=== PATIENT | female | born 1965 | race Caucasian/White ===

== ENCOUNTER 2019-12-20 10:48 | Outpatient (CLI) | payer SELFPAY ==
--- NOTE | 2019-12-20 10:53 | MM_ITS ---
WS: [id number] BILATERAL DIGITAL SCREENING MAMMOGRAM WITH CAD CLINICAL INFORMATION: SCREENING HISTORY: Screening mammogram. No current complaints. COMPARISON: None. TECHNIQUE: Bilateral CC and MLO. FINDINGS: The breast are composed of extremely dense tissue, which can limit the detection of small underlying mass lesions. Recommend diagnostic mammography right breast with palpable marker and ultrasound of re ported palpable area right breast. Scattered punctate and amorphous calcifications both breasts. MM/[place] [id number] IMPRESSION: BI-RADS: 0-Incomplete: Need additional imaging evaluation FOLLOW UP: Need Additional Imaging
== END 2019-12-20 10:49 | disposition home or self-care (01) ==
PROVIDERS: Family Provider Internal Medicine; PCP Internal Medicine; Visit Provider Internal Medicine
DX: Z12.31 Encounter for screening mammogram for malignant neoplasm of breast (principal)
CPT/HCPCS: 77067

== ENCOUNTER 2020-01-07 08:22 | Outpatient (CLI) | payer SELFPAY ==
--- NOTE | 2020-01-07 08:27 | US_ITS ---
WS: [id number] RIGHT DIGITAL MAMMOGRAPHY WITH CAD CLINICAL INFORMATION: INCONCLUSIVE MAMMO;PALPABLE AREA RT COMPARISON: December 20, 2019 TECHNIQUE: 3 views of the right breast were obtained. FINDINGS: The right breast is composed of heterogeneous fibroglandular density tissue, which can limit the dete ction of small underlying mass lesions. Palpable marker upper inner right breast. Extremely dense breast tissue in the area of palpable jose rn which is asymmetric. Scattered calcifications. Ultrasound is pending. ULTRASOUND BREAST RIGHT TECHNIQUE: Ultrasound right breast focused area of concern. CLINICAL INFORMATION: INCONCLUSIVE MAMMO;PALPABLE AREA RT COMPARISON: None. FINDINGS: Ultrasound right breast at the area of palpable concern at 10-12 o'clock. Large irregular hypoechoic solid lesion, taller than wide, measuring 3.8 x 2.1 x 4.9 cm highly suspicious for malignancy at the 12:00 position. Additional adjacent smaller solid satellite nodules measuring 1.9 x 1.4 x 1.2 cm and 0.9 x 0.5 x 0.6 cm at the 11:00 and 10:00 positions respectively. Ultrasound right axilla demonstrates enlarged lymph node measuring 1.9 x 1.4 x 1.2 cm with cortical t hickening and loss of the normal fatty hilum US/US breast RT limited* [id number] IMPRESSION: Recommend ultrasound guided biopsy of the dominant right breast les ion and enlarged right axillary lymph node BI-RADS: 5-Highly Suggestive of Malignancy FOLLOW UP: US Guided Biopsy Recommended
== END 2020-01-07 08:23 | disposition home or self-care (01) ==
LOC: RADSHAW 08:22
PROVIDERS: Family Provider Internal Medicine; PCP Internal Medicine; Visit Provider Internal Medicine
DX: N63.11 Unspecified lump in the right breast, upper outer quadrant (principal); R92.8 Other abnormal and inconclusive findings on diagnostic imaging of breast
CPT/HCPCS: 76642; 77065

== ENCOUNTER 2020-01-21 11:56 | Outpatient (CLI) | payer SELFPAY ==
--- NOTE | 2020-01-21 12:04 | US_ITS ---
WS: [id number] ULTRASOUND-GUIDED RIGHT BREAST BIOPSY CLINICAL INFORMATION: RT BREAST MASS COMPARISON: None. FINDINGS: The procedure including risks, benefits, and complications were discussed with the patient who agreed to proceed. Using sterile technique patient was prepped and draped in the usual sterile fashion. Aft er 1% lidocaine utilizing real-time ultrasound guidance 5 14-gauge cores were obtained of the right b reast lesion at the 12 o'clock position. Subsequently a titanium clip was placed in the biopsy cavity . No immediate complications. Previously described lymph node is no longer demonstrated today. No lymph node biopsies were performe d. No axillary lymph nodes visualized today. Pathology demonstrates invasive ductal carcinoma high nuclear grade with tumor necrosis present. [facility] cancer prognostic profile pending. US/[place] [id number] IMPRESSION: 1. Uncomplicated ultrasound-guided right breast biopsy. 2. The pathology demonstrates INVASIVE DUCTAL CARCINOMA. 3. Breast cancer prognostic profile pending. BI-RADS: 6-Known Biopsy-Proven Malignancy FOLLOW UP: See Report Recommend recommend BREAST SURGERY consultation.
[2020-02-01 08:54] LABS: Miscellaneous Test See Scanned Lab Rpt
== END 2020-01-21 11:57 | disposition home or self-care (01) ==
LOC: RAD 11:56
PROVIDERS: Radiology Neuroradiology; Family Provider Internal Medicine; PCP Internal Medicine; Visit Provider Internal Medicine
DX: N63.10 Unspecified lump in the right breast, unspecified quadrant (principal)
CPT/HCPCS: 19083; 88305; 88361; 88367; 88374; J2001

== ENCOUNTER 2020-02-10 07:33 | Day surgery (SDC) | payer SELFPAY ==
[2020-02-10] VITALS (7 sets, daily range): BP systolic 133–169; BP diastolic 82–102; PULSE 90–114; RESP 14–21; TEMP 36.1–36.9; O2SAT 94–97
--- NOTE | 2020-02-10 08:07 | NM_ITS ---
WS: [id number] NUCLEAR MEDICINE SENTINEL LYMPH NODE IMAGING HISTORY: R BREAST CANCER COMPARISON: None available. TECHNIQUE: The patient was injected with 0.98 mCi of Technetium 99 ultra filtered sulfur colloid. Inj ection is intradermal in a periareolar location. Four aliquots are used. Uncomplicated injection. NM/NM sentinel node inject [id number] IMPRESSION: Uncomplicated RIGHT breast sentinel node injection.
[2020-02-10] MEDS: sodium chloride 0.9% 1,000 ML 30 ML IV (08:11)
--- NOTE | 2020-02-10 09:07 | ANES.PREANE2 ---
Pre-Anesthetic Assessment Pre-Anesthetic Assessment: Height/Weight: Height 1.83 m Weight 110.223 kg Temp Pulse Resp BP Pulse Ox 98.5 F 114 H 18 133/82 94 02/10/20 08:08 02/10/20 08:08 02/10/20 08:08 02/10/20 08:08 02/10/20 08:08 Preop Diagnosis: right breast CA Proposed Procedure: Operation Date: 02/10/20 09:30 Proposed Procedures p Sentinal Lymph Node Biopsy(Right) - Young Ramos MD s Righ Breast Lumpectomy(Right) - Young Ramos MD Last intake: Intake Last Liquid Date 02/09/20 Last Liquid Time 20:00 Last Solid Date 02/09/20 Last Solid Time 20:00 Social: Packs per day: 1/2 Pack years: 12 Comment: quit 5 y Exam: Pre-Anes Outpt Exam: alert, oriented x 3, clear to auscultation bilaterally and regular rate & rhythm Airway: Submandibular: WNL Cervical ROM: WNL MP: 1 CV/HEM: Comments: 2blocks/2FOS without angina/ANDREA Musc/skel: Musc/skel: Lower Back Pain Comments: nonradiating Anesthetic Plan: ASA status: 2 Meds/Allergies Current Medications: Current Medications Generic Name Dose Route Start Last Admin Trade Name Freq PRN Reason Stop Dose Admin Sodium Chloride 1,000 mls @ 30 ml s/hr 02/10/20 08:00 02/10/20 08:11 Sodium Chloride 0.9% IV 02/11/20 07:59 30 mls/hr .Q24H GRISEL Administration PFSH Anesthesia PFSH: Social History (Updated 12/03/19 @ 13:45 by Brandee Woody LPN) Smoking and tobacco status: former smoker Data Anesthesia Cardiac Studies: No Data to Display
--- NOTE | 2020-02-10 09:11 | P.HPUD_ITS ---
Surgery/Procedure H&P Update DATE OF PROCEDURE: February 10, 2020 DATE H&P PERFORMED: 02/01/20 H&P UPDATE INFORMATION: I have reviewed H&P completed within last 30 days, I have examined patient prior to procedure and No changes to prior documentation PLANNED PROCEDURE: Operation Date: 02/10/20 09:30 Proposed Procedures p Sentinal Lymph Node Biopsy(Right) - Young Ramos MD [facility] Breast Lumpectomy(Right) - Young Ramos MD
--- NOTE | 2020-02-10 11:36 | P.OP_ITS ---
Operative Report Date of procedure: February 10, 2020 Pre-op Diagnosis: Invasive right breast CA. Post-op diagnosis: same Procedure Done: 1. Right axillary sentinel lymph node biopsy. 2. Right breast lumpectomy. Specimens removed/disposition: 1. Right axillary sentinel lymph node(s). 2. Right breast lumpectomy. Long suture anteriorly, short suture medially. Surgeon: Young Ramos Anesthesia: General (by means of a laryngeal mask airway.) Complications: None. Condition: stable Disposition: PACU Procedure: The patient was brought to the operating room and was placed in a supine position on the operating room table. The patient had undergone radioactive tracer injection in radiology preoperatively. General anesthesia was induced by means of a laryngeal mask airway. The right breast and axilla were prepped and draped in a sterile fashion. The gamma probe was used to find the hot spot in the axilla. A combination of 1% lidocaine and 0.5% bupivacaine with 1-200,000 parts epinephrine was used for local anesthesia throughout the procedures. A curvilinear incision was carried out over the hot spot of the axilla inferiorly and just slightly anteriorly. Cautery and blunt dissection were used to traverse the subcutaneous tissue and the axilla was entered. Using a combination of inspection and the gamma probe, the hot lymph node was found adjacent to the chest wall and was completely removed using blunt dissection and cautery. There may have been a second small lymph node just adjacent to it which was removed in the same specimen. The primary lymph node registered counts of just over 200 on the field. Further inspection of the axilla with the gamma probe revealed all counts less than 20. No other lymph nodes were seen or palpated in the region. The wound was irrig ated with saline. A suture of 3-0 Vicryl was used to bring the deeper tissue together and the skin was approximated using a running subcuticular suture of 4- 0 Vicryl. Attention was then directed to the right breast where the patient had a large mass in the 12-1 o'clock axis. A transverse incision was carried out over the mass and then the entire mass was completely excised using cautery with an attempt to include a normal rim of breast tissue. Larger vessels were ligated with stick ties of 3-0 Vicryl. The patient did have some obvious fibrocystic tissue inferiorly and somewhat laterally which was traversed while taking out the mass. The dissection was carried out all the way posteriorly to the chest wall on the medial two thirds of the excision. The specimen was marked with a long suture anteriorly and a short suture medially. The wound was irrigated with saline and some small bleeding points were controlled with cautery. The skin was reapproximated using some inverted interrupted sutures of 3-0 Vicryl in the dermis and a running subcuticular suture of 4-0 Vicryl at the skin level. Benzoin and Steri-Strips were placed over the wounds and sterile bandages followed. The patient was taken to the recovery area in stable condition postoperatively.
--- NOTE | 2020-02-10 11:46 | SUR.PHASEI ---
1149 PATIENT TO PACU AT THIS TIME FROM OR. RR EVEN AND UNLABORED. NO DISTRESS. DRESSING TO RIGHT BREAST, CDI. PATIENT NOTED TO BE RESTING WITH EYES CLOSED.
--- NOTE | 2020-02-10 12:07 | SUR.PHASEI ---
1204 PATIENT TO OPS AT THIS TIME. NO DISTRESS. PAIN 04/26, PATIENT REQUESTING A PAIN PILL.
== END 2020-02-10 13:05 ==
PROVIDERS: Family Provider Internal Medicine; PCP Internal Medicine; Visit Provider Surgery
PROC: (CPT 19301; principal; 2020-02-10 09:30)
PROC: (CPT 19301; 2020-02-10 09:30)
DX: C50.911 Malignant neoplasm of unspecified site of right female breast (principal); M19.90 Unspecified osteoarthritis, unspecified site; Z82.49 Family history of ischemic heart disease and other diseases of the circulatory system; Z87.891 Personal history of nicotine dependence
CPT/HCPCS: 19301; 38525; 12345; 38792; 88305; A9541; J0690; J1100; J1885; J2001; J2405; J2704; J3010; J3490; J7030

== ENCOUNTER 2020-02-24 08:04 | Day surgery (SDC) | payer SELFPAY ==
[2020-02-23 15:28] VITALS: BMI 31.1
--- NOTE | 2020-02-24 08:30 | W.PM.OPSUD ---
Surgery/Procedure H&P Update DATE OF PROCEDURE: February 24, 2020 DATE H&P PERFORMED: 02/01/20 H&P UPDATE INFORMATION: No changes to prior documentation PREOP DIAGNOSIS: Invasive right breast CA. PLANNED PROCEDURE: Operation Date: 02/24/20 09:30 Proposed Procedures p Right breast Lumpectomy(Right) - Young Ramos MD
--- NOTE | 2020-02-24 08:35 | ANES.PREANE2 ---
Pre-Anesthetic Assessment Pre-Anesthetic Assessment: Height/Weight: Height 1.83 m Weight 104.326 kg Preop Diagnosis: Invasive right breast CA. Proposed Procedure: Operation Date: 02/24/20 09:30 Proposed Procedures p Right breast Lumpectomy(Right) - Young Ramos MD Familial anesthetic complications: High BP after a knee scope in 2018 (180/x) Was Beta Deann taken within 24 hours: N/A Last intake: NPO > 8 hrs Social: Social History: No alcohol and No tobacco Comment: former smoker Exam: Pre-Anes Outpt Exam: alert, oriented x 3, clear to auscultation bilaterally and regular rate & rhythm Airway: Cervical ROM: WNL MP: 3 Dentition: Chipped Pulmonary: Pulmonary: None reported CV/HEM: CV/HEM: None reported : : None reported Hepatic: Hepatic: None reported GI: GI: None reported Metabolic: Metabolic: None reported Musc/skel: Musc/skel: None reported Neuropsych: Neuropsych: None reported Anesthetic Plan: ASA status: 1 Anesthesia: MAC Risk of > 500 ml blood loss (7ml/kg in children): No PFSH Anesthesia PFSH: Social History (Updated 12/03/19 @ 13:45 by Brandee Woody LPN) Smoking and tobacco status: former smoker Data Anesthesia Cardiac Studies: No Data to Display
[2020-02-24] MEDS: sodium chloride 0.9% 1,000 ML 30 ML IV (08:37)
--- NOTE | 2020-02-24 09:18 | PM.OP ---
Operative Report Date of procedure: February 24, 2020 Pre-op Diagnosis: Invasive right breast CA, tumor cells at posterior edge of previous lumpectomy specimen. Post-op diagnosis: same Procedure Done: Reexcision of posterior (posterior lateral and posterior inferior) win of previous right breast biopsy cavity. Specimens removed/disposition: Right breast lumpectomy. Long suture anteriorly, short suture laterally. Surgeon: Young Ramos Anesthesia: MAC Estimated blood loss (mL): 5 Complications: None. Condition: stable Disposition: same day Procedure: The patient was brought to the operating room and was placed in a supine position on the operating room table. A monitored anesthetic was induced. The right breast was prepped and draped in a sterile fashion. A combination of 1% lidocaine and 0.5% bupivacaine with 1-200,000 parts epinephrine was used for local anesthesia throughout the procedure. The patient's previous incision in the upper portion of the right breast was reopened using a scalpel. The serosanguineous fluid in the biopsy cavity was suctioned out. The previous lumpectomy had been carried out posteriorly to the pectoralis muscle at the medial aspect. The remaining breast tissue was elevated at the lateral and inferior edges of the previous lumpectomy on top of the pectoralis muscle. The dissection was carried out laterally to the edge of the pectoralis muscle. The lateral and inferior edges were removed in a single piece of tissue posteriorly to the pectoralis muscle. The specimen was marked with a long suture anteriorly and a short suture laterally. The wound was irrigated with saline. Hemostasis was good. The dermis was approximated using some inverted interrupted sutures of 3-0 Vicryl and the skin was reapproximated using a running subcuticular suture of 4-0 Vicryl. Benzoin and Steri-Strips were placed over the incision. A sterile bandage followed. The patient was taken to the outpatient recovery area in stable condition postoperatively.
[2020-02-24 09:24] VITALS: BP 131/88; PULSE 90; RESP 18; TEMP 36.7; O2SAT 97
== END 2020-02-24 10:00 | disposition home or self-care (01) ==
PROVIDERS: Family Provider Internal Medicine; PCP Internal Medicine; Visit Provider Surgery
PROC: (CPT 19301; principal; 2020-02-24 09:20)
DX: C50.911 Malignant neoplasm of unspecified site of right female breast (principal); Z87.891 Personal history of nicotine dependence; Z82.49 Family history of ischemic heart disease and other diseases of the circulatory system
CPT/HCPCS: 19301; 12345; J0690; J2001; J2250; J2704; J3010; J3490; J7030

== ENCOUNTER 2020-03-21 15:07 | Outpatient (CLI) | payer SELFPAY ==
--- NOTE | 2020-03-21 18:49 | ONC CON_ITS ---
Dr. Landeros New Patient Note Patient: Lisbeth Fermin Unit #: [id number]: [id number] Dicatated By: Andrei Landeros M.D.Date of Visit: March 21, 2020 Onc MED New Patient/Consult Referring Physician: Dr. Young Ramos M.D. History of Present Illness: Mrs. Lisbeth Fermin, is a 54-year-old female, with a history of right breast mass, as per patient in November 2019 she noted mass in her right breast, it was progressive for which she underwent mammogram which showed mass in her right breast further confirmed by ultrasound of right breast which showed mass at 10-12:00, large irregular hypoechoic solid lesion taller then wide measuring 3.8 x 2.1 x 4.9 cm highly suspicious for malignancy additional adjacent smaller solid satellite nodule measuring 1.9 x 1.4 x 1.2 cm and 0.9 x 0.5 x 0.6 cm mass patient underwent ultrasound-guided core needle biopsies done on 01/21/2020 which showed invasive ductal carcinoma of breast in 5 out of 5 core biopsies, ER/RI negative e.g. less than 1% although in the report RI was mentioned positive but it was less than 1% and went confirmed with pathology, Dr. Mckinnon said it should be negative. And HER-2/cristobal negative. Patient underwent right breast wide excisional lumpectomy on 02/10/2020 and final pathology report confirmed invasive tumor 5.5 x 4.5 x 3.5 cm and focally extends to the inked posterior margin and remaining margins free of invasive carcinoma, extensive ductal carcinoma in situ with focal apocrine features, high nuclear grade, carcinoma in situ extends to within 1 mm of inked inferior margin, and remaining margins were free., Complex sclerosing lesion, extensive sclerosing adenosis, fibrocystic changes, cystic and papillary apocrine metaplasia. One sentinel lymph node was removed and examined showed no evidence of metastatic disease. Patient underwent reexcision of positive surgical margin on 02/24/2020 and obtain clear surgical margins. Patient denies any history of bony pains except chronic right shoulder rotator cuff and history of right knee replacement. Denies any any bony pains. Denies any headaches denies any weight loss denies any jaundice. History of smoking, occasional alcohol use. Menarche at age 15, first at age 26, no history of hormone use. Last menstrual period was in December 2018. Past Medical History: Ms. Pacheco medical history consists of anxiety, arthritis, depression, history of right breast cancer, and Migraine headaches. Past Surgical History: Ms. Pacheco surgical/procedural history consists of breast biopsy, cervical fusion, left knee arthroscopy, right breast lumpectomy, right foot tendon avulsion, and right total knee replacement. Medications: Acid Control Maximum Strength 1 Tablet (of 20 mg) Oral at bedtime, ALPRAZolam 1 (0.5 mg) Tablet Oral t.i.d., Cymbalta 1 (30 mg) Capsule Delayed Release Particles Oral daily, HYDROcodone-Acetaminophen 1 (5-325 mg) Tablet Oral q 6 hours PRN, Meloxicam 1 (15 mg) Tablet Oral b.i.d., Methocarbamol 1 - 2 Tablet (of 750 mg) Oral t.i.d. PRN Allergies: Latex and Penicillins. 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 Ms. Fermin quit smoking 3 years ago but had smoked 1.0 pack/day for 25 years. She drinks occasionally. She consumes 2 days/week. Ms. Fermin reports the following support systems: lives with spouse, significant other, family, or friends, lives in own house, supportive family/friends willing to assist with needs, and adequate transportation available for expected visits. Her diet consists of regular meals. She indicates her activity level as: regular exercise. Family History: Ms. Edwardss mother is alive: colon cancer. Ms. Fermin's father at age 71: colon cancer. Review Of Symptoms: Constitutional - She has been feeling extremely tired. Her appetite is good. She has gained weight. No fevers, chills, hot flashes or night sweats, ENMT - No problems with hearing. no sore throat. She has seasonal allergies, Hematologic/Lymphatic - No easy bruising or bleeding. The patient denies any tender or palpable lymph nodes, Respiratory - No dyspnea on exertion, chest pain, cough or hemoptysis, Cardiovascular - No anginal chest pain, palpitations or orthopnea, Gastrointestinal - No nausea, vomiting, diarrhea, GI bleeding, or constipation. No change in bowel habits. Her heartburn is well controlled with Famotidine, Genitourinary (F) - No hematuria, dysuria, increased frequency, urgency, hesitancy or incontinence, Musculoskeletal - She has significant pain to her right axilla near biopsy site. She also has pain in her right shoulder from an rotator cuff injury, Integumentary - No chronic rashes, inflammation, ulcerations or skin changes. Her incision site is healing well, Neurologic - She has sinus headaches. No blurred vision. No areas of focal weakness or numbness. Normal gait. No sensory problems, Psychiatric - Her anxiety and depression is well managed with Alprazolam and Cymbalta. She sleeps well. Vital Signs: Performed on March 21, 2020 15:21: 7, 35.43 (HIGH), 2.39 sq.m, 72 in, 97 %, 95 /min, 17 /min, 149/82 mm(hg) (HIGH), 98.4 F, and 261.2 lbs (HIGH). Performance Status: 0 - Fully active, able to carry on all predisease activities without restrictions. (ECOG) Physical Examination: ENMT - no mouth sores or thrush, Respiratory - Lungs are clear, Cardiovascular - Regular rate and rhythm of heart, Abdomen - soft, bowel sounds present, Extremities - no edema orrash,right breast lumpectomy site, with good healing. Lab/Imaging: Most recent lab results are not available for this patient. Impression: Invasive ductal carcinoma status post right breast wide excisional lumpectomy done on 02/09/2019 final pathology report showed invasive ductal carcinoma 5.5 x 4.5 x 3.5 cm, focally extends to the inked posterior margin, extensive ductal carcinoma in situ with focal apocrine features, high nuclear grade. Followed by reexcision of often involved margin on 02/24/2020 with clear margins pT3 and 1 sentinel lymph node was examined showed no evidence of metastatic disease pNo stage IIB, ER/RI/HER-2/cristobal negative with high Ki-67 e.g. 38%. chronic right shoulder pain due to rotator cuff Plan: Discussed with patient regarding her disease status, patient has locally advanced disease e.g. T3 lesion, status post wide excision of right breast lumpectomy/partial mastectomy with clear surgical margins and 1 sentinel lymph node was examined showed no evidence of metastatic disease, clinical stage IIB. Breast cancer prognostic profiling showed triple negative disease e.g. ER/RI/HER-2/cristobal negative Being triple negative and locally advanced disease, patient is a candidate for adjuvant chemotherapy, as per [facility] guidelines, we'll consider dose dense Adriamycin Cytoxan e.g. every 2 weeks ???4 with Neulasta support to prevent chemotherapy-induced neutropenia. Followed by weekly Taxol ???12, followed by postlumpectomy radiation therapy all the side effects possible benefits associated with systemic chemotherapy including but not limited to bone marrow suppression, cardiac toxicity especially with Adriamycin, nausea vomiting, hair loss, bladder toxicity especially with Cytoxan and peripheral neuropathy, allergic reactions especially with Taxol were mentioned further teaching will be done by chemotherapy nurse. We will obtain approval from her insurance prior to the treatment in the meantime we will obtain baseline echocardiogram and also request Dr. Ramos for Port-A-Cath placement. We will also discuss with Dr. Mckinnon, pathology regarding size of invasive tumor as a final pathology report it mentioned it was 5.5 cm and with extensive DCIS. As sonogram showed 3 separate lesions in the right breast. We will also check BRCA1/BRCA2. We will also discuss with Dr. Ramos whether all the 3 nodules seen on ultrasound were removed.patient return to clinic after echocardiogram and Port-A-Cath placement with CBC CMP. Signed By: Andrei Landeros M.D. <<Signature on File>>
== END 2020-03-21 15:08 | disposition home or self-care (01) ==
LOC: ONCMED 15:12
PROVIDERS: Family Provider Internal Medicine; PCP Internal Medicine; Referring Provider Surgery; Visit Provider Internal Medicine Hematology & Oncology
DX: C50.411 Malignant neoplasm of upper-outer quadrant of right female breast (principal); Z17.1 Estrogen receptor negative status [ER-]; M25.511 Pain in right shoulder; Z87.891 Personal history of nicotine dependence
CPT/HCPCS: 99203

== ENCOUNTER 2020-03-27 13:48 | Outpatient (CLI) | payer SELFPAY ==
--- NOTE | 2020-03-27 | USCV_ITS ---
Gareth Lisbeth Age: 54 Gender: F : 1965 Exam Date: 03/27/2020 14:35 Ordering Phys: Andrei Landeros MD Technologist: Elizabeth Arreguin Exam Location: [facility] [place] Indication: CHEMO TREATMENTS BP: / HR: 90 Rhythm: Sinus Technical Quality: Adequate MEASUREMENTS (Male / Female) Normal Values 2D ECHO LV Diastolic Diameter PLAX 4.3 cm 4.2 - 5.9 / 3.9 - 5.3 cm LV Systolic Diameter PLAX 2.7 cm LV Chamber Size 2.8 cm IVS Diastolic Thickness 1.2 cm 0.6 - 1.0 / 0.6 - 0.9 cm IVS Systolic Thickness 1.8 cm LVPW Diastolic Thickness 0.8 cm 0.6 - 1.0 / 0.6 - 0.9 cm LVPW Systolic Thickness 1.7 cm RV Chamber Size 2.6 cm LVOT Diameter 2.1 cm LV Ejection Fraction 2D Teich 66.9 % LV Ejection Fraction MOD 2C 55.7 % LV Ejection Fraction 2C AL 58.9 % LA Diameter 4.2 cm LA Width 2.8 cm LA Height 3.6 cm RA Width 2.8 cm RA Height 3.9 cm Aorta at Sinotubular Diameter 2.9 cm M-MODE LV Diastolic Diameter MM 4.6 cm 4.2 - 5.9 / 3.9 - 5.3 cm LV Systolic Diameter MM 2.6 cm LV Ejection Fraction MM Teich 74.1 % IVS Diastolic Thickness MM 0.8 cm 0.6 - 1.0 / 0.6 - 0.9 cm IVS Systolic Thickness MM 1.3 cm LVPW Diastolic Thickness MM 1.2 cm 0.6 - 1.0 / 0.6 - 0.9 cm LVPW Systolic Thickness MM 1.7 cm RV Diastolic Diameter MM 2.0 cm Aortic Annulus Diameter 3.1 cm LA Ao Ratio MM 1.3 MV E Point Septal Separation 0.4 cm DOPPLER AV Peak Velocity 150.0 cm/s LVOT Peak Velocity 99.0 cm/s AV Area Cont Eq vti 2.5 cm squared AV Area Cont Eq pk 2.2 cm squared MV Area PHT 11.0 cm squared Mitral E to A Ratio 0.9 MV E' Velocity 10.0 cm/s Mitral E to MV E' Ratio 7.6 Mitral E to LV E' Lateral Ratio 7.5 Mitral E to LV E' Septal Ratio 7.6 TR Peak Velocity 136.8 cm/s TR Peak Gradient 7.5 mmHg TR Mean Velocity 94.0 cm/s TR Mean Gradient 4.1 mmHg TR Velocity Time Integral 31.7 cm TV Peak E Velocity 65.0 cm/s Right Atrial Pressure 3.0 mmHg Pulmonary Artery Systolic Pressu 10.5 mmHg PV Peak Velocity 83.0 cm/s RV Acceleration Time 0.2 s RV Ejection Time 0.3 s RV AcT/ET 0.5 FINDINGS Left Ventricle Normal left ventricular cavity size. Normal left ventricular systolic function. No regional wall motion abnormalities. Left ventricular ejection fraction is estimated at 65 %. Grade I/IV diastolic dysfunction (abnormal relaxation filling pattern), normal to mildly elevated filling pressures. Right Ventricle The right ventricle is normal in size and function. Right Atrium The right atrium is normal in size. Left Atrium The left atrium is normal in size. Mitral Valve Structurally normal mitral valve without significant stenosis or prolapse. There is no mitral regurgitation. Aortic Valve Structurally normal aortic valve without significant sclerosis or stenosis. There is no aortic regurgitation. Tricuspid Valve Structurally normal tricuspid valve without significant stenosis or regurgitation. Pulmonary artery systolic pressure is normal. Pulmonic Valve Structurally normal pulmonic valve without significant stenosis. There is no pulmonic regurgitation. Pericardium Normal pericardium without effusion. Aorta Normal ascending aorta dimension. CONCLUSIONS 1-Normal left ventricular cavity size. Normal left ventricular systolic function. No regional wall motion abnormalities. Left ventricular ejection fraction is estimated at 65 %. Grade I/IV diastolic dysfunction (abnormal relaxation filling pattern), normal to mildly elevated filling pressures. 2-No significant valve abnormalities. 3-There is no pericardial effusion. 4-Pulmonary artery systolic pressure is within normal limits. 5-Right atrial pressure is around 5 mm of mercury. 6-There are no prior echocardiogram studies to compare. Nery Epstein MD (Electronically Signed) Final Date: 27 Mar 2020 18:26 S
== END 2020-03-27 13:49 | disposition home or self-care (01) ==
LOC: RAD 13:50 → RT 13:53
PROVIDERS: Visit Provider Internal Medicine Hematology & Oncology
DX: Z08 Encounter for follow-up examination after completed treatment for malignant neoplasm (principal); I51.89 Other ill-defined heart diseases
CPT/HCPCS: 93306

== ENCOUNTER 2020-03-30 09:36 | Day surgery (SDC) | payer SELFPAY ==
[2020-03-29 10:42] VITALS: BMI 31.4
--- NOTE | 2020-03-30 | SCC_ITS ---
Procedure Done: Port-A-Cath placement into the left subclavian vein with intraoperative fluoroscopy interpretation. 3.7 seconds of fluoroscopic guidance, for a cumulative dose of 1.32 mGy, was provided to Dr. Ramos by the radiology department. C-arm images of the chest were saved for the patient's permanent record. LUISA
[2020-03-30 09:55] VITALS: BP 155/88; PULSE 88; RESP 16; TEMP 36.8; O2SAT 96
[2020-03-30] MEDS: sodium chloride 0.9% 1,000 ML 30 ML IV (10:15)
--- NOTE | 2020-03-30 10:19 | ANES.PREANE2 ---
Pre-Anesthetic Assessment Pre-Anesthetic Assessment: Height/Weight: Height 1.83 m Weight 105.233 kg Temp Pulse Resp BP Pulse Ox 98.2 F 88 16 155/88 96 03/30/20 09:55 03/30/20 09:55 03/30/20 09:55 03/30/20 09:55 03/30/20 09:55 Preop Diagnosis: Invasive right breast CA, tumor cells at posterior edge of previous lumpectomy specimen. Proposed Procedure: Operation Date: 03/30/20 11:05 Proposed Procedures p Portacath Placement(Not Applicable) - Young Ramos MD Last intake: Intake Last Liquid Date 03/29/20 Last Liquid Time 20:30 Last Solid Date 03/29/20 Last Solid Time 20:30 Social: Social History: No alcohol and No tobacco Exam: Pre-Anes Outpt Exam: alert, oriented x 3, clear to auscultation bilaterally and regular rate & rhythm Airway: Submandibular: WNL Cervical ROM: WNL MP: 2 Dentition: Other (teeth ok) History/ROS: No significant history except as noted Pulmonary: Pulmonary: None reported CV/HEM: CV/HEM: None reported : : None reported Hepatic: Hepatic: None reported GI: GI: GERD (occ) Metabolic: Metabolic: None reported Musc/skel: Musc/skel: None reported Neuropsych: Neuropsych: Anxiety and Depression Anesthetic Plan: ASA status: 2 Anesthesia: Anesthesia Evaluation and MAC Risk of > 500 ml blood loss (7ml/kg in children): No Meds/Allergies Current Medications: Current Medications Generic Name Dose Route Start Last Admin Trade Name Freq PRN Reason Stop Dose Admin Sodium Chloride 1,000 mls @ 30 ml s/hr 03/30/20 09:45 03/30/20 10:15 Sodium Chloride 0.9% IV 03/31/20 09:44 30 mls/hr .Q24H GRISEL Administration PFSH Anesthesia PFSH: Social History (Updated 12/03/19 @ 13:45 by Brandee Woody LPN) Smoking and tobacco status: former smoker Data Anesthesia Cardiac Studies: No Data to Display
--- NOTE | 2020-03-30 10:33 | SC_ITS ---
WS: [id number] C-ARM RADIOGRAPHS CHEST; 2 IMAGES HISTORY: portacath placement COMPARISON: None available. Intraoperative imaging during Port-A-Cath placement. LEFT subclavian Port-A-Cath placed in good posit ion. SC/C-[place] [id number] IMPRESSION: Intraoperative imaging during Port-A-Cath placement.
--- NOTE | 2020-03-30 11:02 | W.PM.OPSUD ---
Surgery/Procedure H&P Update DATE OF PROCEDURE: March 30, 2020 DATE H&P PERFORMED: 03/28/20 H&P UPDATE INFORMATION: No changes to prior documentation PREOP DIAGNOSIS: Invasive right breast CA, tumor cells at posterior edge of previous lumpectomy specimen. PLANNED PROCEDURE: Operation Date: 03/30/20 11:05 Proposed Procedures p Portacath Placement(Not Applicable) - Young Ramos MD
[2020-03-30] MEDS: heparin,porcine 1,000 unit/mL INJ 1 mL 2000 UNIT INJECTION (11:16)
--- NOTE | 2020-03-30 11:36 | PM.OP ---
Operative Report Date of procedure: March 30, 2020 Pre-op Diagnosis: Right breast cancer. Post-op diagnosis: same Procedure Done: Port-A-Cath placement into the left subclavian vein with intraoperative fluoroscopy interpretation. Pathology: none sent Surgeon: Young Ramos Anesthesia: MAC Estimated blood loss (mL): 10 Complications: None. Condition: stable Disposition: same day Procedure: The patient was brought to the Operating Room and was placed in a supine position on the operating room table. A monitored anesthetic was induced. The shoulders were extended by means of a posterior shoulder roll. The anterior surface of the chest and neck were prepped and draped in a sterile fashion. 1% lidocaine was used to anesthetize a small area underneath the left clavicle. A needle and syringe were then used to try to access the left subclavian vein. Initially, a vessel was entered that showed somewhat high pressure but not pulsatile, and blood that was fairly dark in color. The J-wire was advanced and then the C-arm was positioned but the wire seemed to extend down on the left side of the chest, possibly consistent with an arterial access. The wire was withdrawn. The subclavian vein was then accessed with a needle and syringe as evidenced by the return of dark nonpulsatile blood seen to be under a little less pressure. The J-wire was passed down the needle and the needle was removed. The C-arm was positioned and clearly showed the wire extending down the vena cava. A site just inferiorly on the chest wall was anesthetized using a combination of 1% lidocaine and 0.5% bupivacaine with 1:200,000 parts of epinephrine. A transverse incision was made and an inferior pocket was created in the subcutaneous layer using cautery in preparation for port placement. The Port-A-Cath tubing was passed from the incision through the subcutaneous layer to the exit point of the J-wire. The tubing was attached to the port and was cut to an appropriate length. The introducer and sheath were passed over the J-wire, and the introducer and J-wire were removed. The Port-A-Cath tubing was passed down the sheath, which was torn away. The C-arm was positioned and showed good placement of the Port-A-Cath tubing tip in the superior vena cava. The port aspirated easily and flushed well with hep flush solution. The port was sewn in place with some interrupted sutures of 3-0 PDS. The transverse incision was closed at the dermis using a single inverted suture of 3-0 Vicryl and the skin was approximated using a running subcuticular suture of 4-0 Vicryl. The small incision under the clavicle at the previous insertion site of the J wire was closed using a single inverted suture of 4-0 Vicryl. Benzoin and Steri-Strips were placed over the incisions and a sterile bandage followed. The patient was taken to the recovery area in stable condition postoperatively. INTRAOPERATIVE FLUOROSCOPY FINDINGS: Intraoperative fluoroscopic images of a Port-A-Cath placement were reviewed. An initial image reveals a J-wire entering the left subclavian artery and extending down into the aorta. A second image shows a J-wire now entering the left subclavian vein and extending down the vena cava. Subsequent images reveal a Port-A-Cath on that side of the chest with its tubing tip in good location in the superior vena cava. No obvious pneumothorax is identified.
[2020-03-30 11:41] VITALS: BP 144/100; PULSE 97; RESP 18; TEMP 36.1; O2SAT 98
== END 2020-03-30 12:05 | disposition home or self-care (01) ==
PROVIDERS: Visit Provider Surgery
PROC: (CPT 36561; principal; 2020-03-30 11:05)
DX: C50.911 Malignant neoplasm of unspecified site of right female breast (principal); K21.9 Gastro-esophageal reflux disease without esophagitis; Z87.891 Personal history of nicotine dependence; M19.90 Unspecified osteoarthritis, unspecified site; Z79.891 Long term (current) use of opiate analgesic; Z82.49 Family history of ischemic heart disease and other diseases of the circulatory system; Z83.3 Family history of diabetes mellitus
CPT/HCPCS: 36561; 12345; 77001; 96365; C1788; J0690; J1644; J2001; J2250; J3010; J3490; J7030

== ENCOUNTER 2020-04-04 09:34 | Outpatient (CLI) | payer SELFPAY ==
[2020-04-04 10:10] LABS: Basophils % 0.2 %; Hematocrit 44.3 % (37.0-47.0); Hemoglobin 14.1 g/dL (11.5-15.3); Lymphocytes # 0.5 10^3/uL (0.8-4.8); Lymphocytes % 5.7 %; Mean Corpuscular HGB Conc 31.8 g/dL (30.0-36.0); Mean Corpuscular Hemoglobin 28.7 pg (28.0-34.0); Mean Corpuscular Volume 90.2 fL (81-99); Mean Platelet Volume 9.5 fL (7.4-10.4); Monocytes % 0.4 %; Neutrophils # 8.9 10^3/uL (1.8-7.7); Neutrophils % 93.2 %; Nucleated Red Blood Cells % 0 %; Platelet Count 342 10^3/cmm (130-400); Red Blood Count 4.91 10^6/uL (4.1-5.3); Red Cell Distribution Width 12.1 % (12.1-15.1); White Blood Count 9.5 10^3/uL (4.0-10.0)
[2020-04-04 10:29] LABS: Alanine Aminotransferase 20 U/L (0-33); Albumin Level 4.6 g/dL (3.5-5.2); Alkaline Phosphatase 116 IU/L (35-105); Anion Gap 19.9 (5-19); Aspartate Amino Transferase 19 U/L (0-32); Blood Urea Nitrogen 11 mg/dL (6-20); Calcium 9.5 mg/dL (8.5-10.5); Carbon Dioxide 21 mmol/L (22-29); Chloride 97 mmol/L (98-107); Glomerular Filtration Rate 87.5 mL/min (90-130); Glucose 282 mg/dL (65-115); Osmolality Calculated 284 mOsm/kg (285-295); Potassium 3.9 mmol/L (3.5-5.1); Sodium 134 mmol/L (136-145); Total Bilirubin 0.2 mg/dL (0.15-1.2); Total Protein 7.6 g/dL (6.6-8.7)
[2020-04-04] MEDS: sodium chloride 0.9% 250 ML 999 ML IV (12:05)
[2020-04-04] MEDS: pegfilgrastim 6 mg/0.6 mL Kit (onpro) SUBCUT (14:50)
--- NOTE | 2020-04-10 12:26 | ONC FU_ITS ---
[facility] Patient Note Patient: Lisbeth Fermin Unit #: [id number]: 1965 Dictated By: Ghada CaoDate of Visit: April 04, 2020 Onc MED Follow-Up/Prog Note Chief Complaint: right breast cancer History of Present Illness: Mrs. Fermin is a 54-year-old female, with a history of right breast mass. In November 2019 she noted a mass in her right breast. As it did not go away, she underwent mammogram which showed a mass in her right breast. She underwent ultrasound of right breast which showed a mass at 10-12:00, large irregular hypoechoic solid lesion taller than wide, measuring 3.8 x 2.1 x 4.9 cm. The mass was highly suspicious for malignancy. She also had an adjacent smaller solid satellite nodules measuring 1.9 x 1.4 x 1.2 cm and 0.9 x 0.5 x 0.6 cm mass. She then underwent ultrasound-guided core needle biopsies on 01/21/2020. The pathology reported invasive ductal carcinoma of breast. Positive in 5 out of 5 core biopsies. ER/CA negative e.g. (less than 1% although in the report CA was mentioned positive but it was less than 1% and went confirmed with pathology, Dr. Mckinnon said it should be negative). HER-2/cristobal negative as well. Mrs Fermin underwent right breast wide excisional lumpectomy on 02/10/2020. The final pathology report confirmed invasive tumor 5.5 x 4.5 x 3.5 cm. focally extends to the inked posterior margin; remaining margins free of invasive carcinoma. Extensive ductal carcinoma in situ with focal apocrine features, high nuclear grade, carcinoma in situ extends to within 1 mm of inked inferior margin, and remaining margins were free., Complex sclerosing lesion, extensive sclerosing adenosis, fibrocystic changes, cystic and papillary apocrine metaplasia. One sentinel lymph node was removed and examined showed no evidence of metastatic disease. Patient underwent reexcision of positive surgical margin on 02/24/2020 and obtain clear surgical margins. Patient denies any history of bony pains except chronic right shoulder rotator cuff and history of right knee replacement. Denies any any bony pains. Denies any headaches denies any weight loss denies any jaundice. History of smoking, occasional alcohol use. Menarche at age 15, first at age 26, no history of hormone use. Last menstrual period was in December 2018. Mrs. Fermin was evaluated with Dr. Landeros. He recommended treatment of her triple negative, sentinel node negative breast cancer with Adriamycin Cytoxan dose dense for 4 cycles followed by Taxotere for 12 weeks. She is here today for follow-up and to begin her first cycle of chemotherapy. She is accompanied by her . She denies any nausea or vomiting. She has had some anxiety related to the planned for today. She did inadvertently take steroid premedication although has not needed for the Adriamycin Cytoxan. However if did reveal that she has gone to have intolerance of the steroids given that her glucose today was significantly elevated at 282. She has no history of diabetes. Also, she states that she had palpitations and increased heart rate. She had significant insomnia and mood swings. This is evidence that she will be intolerant of the Taxotere. She is having significant shoulder pain and pain from her recent Port-A-Cath insertion site elevated settle down some. She states that her shoulder is bothering her more than anything. She has had some intermittent body aches in general but states overall she feels she is doing well. She denies nausea or vomiting. Has had no diarrhea or constipation. She is had no fever or chills or any signs of infection for at least the last 72 hours. Her ECOG is 0. Past Medical History: Anxiety Arthritis Depression History of right breast cancer Migraine headaches Past Surgical History: Breast biopsy Cervical fusion Left knee arthroscopy Right breast lumpectomy Right foot tendon avulsion Right total knee replacement Allergies: Latex and Penicillins. Medications: Acetaminophen 1 - 2 Tablet (of 325 mg) Oral daily PRN Acid Control Maximum Strength 1 Tablet (of 20 mg) Oral at bedtime ALPRAZolam 1 (0.5 mg) Tablet Oral t.i.d. Cymbalta 1 (30 mg) Capsule Delayed Release Particles Oral daily HYDROcodone-Acetaminophen 1 (5-325 mg) Tablet Oral q 6 hours PRN Meloxicam 1 (15 mg) Tablet Oral b.i.d. Methocarbamol 1 - 2 Tablet (of 750 mg) Oral t.i.d. PRN Family History: Ms. Fermin's mother is alive: colon cancer. Ms. Fermin's father at age 71: colon cancer. 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 Ms. Fermin quit smoking 3 years ago but had smoked 1.0 pack/day for 25 years. She drinks occasionally. She consumes 2 days/week. Ms. Fermin reports the following support systems: lives with spouse, significant other, family, or friends, lives in own house, supportive family/friends willing to assist with needs, and adequate transportation available for expected visits. Her diet consists of regular meals. She indicates her activity level as: regular exercise. Review Of Symptoms: Constitutional Denies fevers, chills, night sweats, excessive fatigue or weight loss. Allergic/Immunologic No reactions. Eyes Denies significant visual changes. No diplopia. No amaurosis. ENMT Denies changes in hearing, sore throat, mouth sores, difficulty or changes in swallowing ability, and/or sinus drainage. Endocrine No diabetes, thyroid disease or hormone replacement. Denies hot flashes or night sweats. Hematologic/Lymphatic Denies easy bruising or bleeding. The patient denies any tender or palpable lymph nodes. Breasts no new concerns Respiratory Denies dyspnea on exertion, chest pain, cough or hemoptysis. Denies orthopnea. Cardiovascular Denies anginal chest pain, palpitations or orthopnea. Gastrointestinal Denies nausea, vomiting, diarrhea, GI bleeding, or constipation. Denies change in bowel habits and/or stool color, no heartburn or early satiety. Genitourinary (F) No hematuria, hesitancy, incontinence, vaginal bleeding, discharge or other problems with urination. Musculoskeletal Denies joint pain, swelling or redness. No decreased range of motion. Integumentary Denies chronic rashes, inflammation, ulcerations or skin changes. Neurologic Denies headache, blurred vision, and no areas of focal weakness or numbness. Normal gait. No sensory problems. Psychiatric Denies insomnia, depression, monae or mood swings. Anxiety related to diagnosis and starting treatment today. Vital Signs: Performed on April 04, 2020 10:47 Height - 72.00 in Weight - 261.8 lbs (HIGH) BSA - 2.39 sq.m BMI - 35.51 (HIGH) Temperature - 98.7 F Pulse - 114 /min (HIGH) Respiration - 17 /min BP - 148/98 mm(hg) (HIGH) O2 Sat - 98 % Pain - 0,0 - Fully active, able to carry on all predisease activities without restrictions. (ECOG) Physical Examination: Constitutional Alert, oriented, no acute distress. Skin pink, warm and dry. Head Normocephalic; atraumatic. Eyes Conjunctivae and sclerae are clear and without icterus. Pupils are reactive and equal. Neck Supple without masses or thyromegaly. No jugular venous distension. Hematologic/Lymphatic No petechiae or purpura. No tender or palpable lymph nodes in the cervical or supraclavicular areas. Respiratory Lungs are clear to auscultation without rhonchi or wheezing. Cardiovascular Regular rate and rhythm of heart without murmurs,clicks, gallops or rubs. Chest Left venous access insertion site is healing well. There is minimal bruising. Abdomen Non-tender, non-distended, no masses or ascites. Good bowel sounds noted in all quads. No guarding or rebound tenderness. No pulsatile masses. Back/Spine Non-tender to palpation. Extremities No visible deformities, no cyanosis, clubbing or edema. Musculoskeletal No tenderness or swelling, normal range of motion without obvious weakness. Integumentary No rashes or lesions. Neurologic No sensory or motor deficits, normal cerebellar function, normal gait. Psychiatric Alert and oriented times three. Coherent speech. Verbalizes understanding of our discussions today. Laboratory:Test performed on April 04, 2020 09:56 Sodium 134 mmol/L Potassium 3.9 mmol/L Chloride 97 mmol/L CO2 21 mmol/L Anion Gap 19.9 BUN 11 mg/dL Creatinine 0.7 mg/dL Cr Clearance (Est) 173.8400 mL/min eGFR 87.5 mL/min Glucose 282 mg/dL Calcium 9.5 mg/dL Protein, Total 7.6 g/dL Albumin 4.6 g/dL Globulin 3.0 g/dL Bilirubin, Total 0.2 mg/dL ALT (SGPT) 20 U/L AST (SGOT) 19 U/L Alkaline Phosphatase 116 IU/L WBC 9.5 10 3/uL RBC 4.91 10 6/uL HGB 14.1 g/dL HCT 44.3 % MCV 90.2 fL MCH 28.7 pg MCHC 31.8 g/dL RDW 12.1 % Platelet Count 342 10 3/cmm MPV 9.5 fL Neutrophils 8.9 10 3/uL Lymphocytes 0.5 10 3/uL Monocytes 0.0 10 3/uL Eosinophils 0.0 10 3/uL Basophils 0.0 10 3/uL Neutrophil % 93.2 % Lymphocyte % 5.7 % Monocyte % 0.4 % Eosinophil % 0.0 % Basophils % 0.2 % Impression: Invasive ductal carcinoma status post right breast wide excisional lumpectomy done on 02/09/2019 final pathology report showed invasive ductal carcinoma 5.5 x 4.5 x 3.5 cm, focally extends to the inked posterior margin, extensive ductal carcinoma in situ with focal apocrine features, high nuclear grade. Followed by reexcision of often involved margin on 02/24/2020 with clear margins pT3 and 1 sentinel lymph node was examined showed no evidence of metastatic disease pNo stage IIB, ER/CA/HER-2/cristobal negative with high Ki-67 e.g. 38%. chronic right shoulder pain due to rotator cuff Dr Landeros discussed with Mrs Fermin her disease status. She has locally advanced disease e.g. T3 lesion, status post wide excision of right breast lumpectomy/partial mastectomy with clear surgical margins and 1 sentinel lymph node was examined showed no evidence of metastatic disease, clinical stage IIB. Breast cancer prognostic profiling showed triple negative disease e.g. ER/CA/HER-2/cristobal negative. Being triple negative and locally advanced disease, patient is a candidate for adjuvant chemotherapy, as per N CCN guidelines, we'll consider dose dense Adriamycin Cytoxan e.g. every 2 weeks ???4 with Neulasta support to prevent chemotherapy-induced neutropenia. Followed by weekly Taxol ???12, followed by postlumpectomy radiation therapy. As discussed previously she had significant hyperglycemia, anxiety, insomnia and palpitations with an inadvertently taken steroid premed prior to her chemotherapy today. I do feel that she will not tolerate the steroids and would like to pursue obtaining Abraxane for her. Plan: 1. Proceed with cycle 1 day 1 Abraxane Cytoxan. 2. She will have Neulasta support. 3. She was advised that she could try Tums, Rolaids or [id number] Pepcid or omeprazole if she feels she needs it for gastritis symptoms. 4. Labs from today were reviewed in detail and discussed with Mrs. Fermin and her and a copy was given to them. WBC 9.5, hemoglobin 14.1, platelets 3 42,000 ANC is 8900 potassium 3.9. 5. She will have Compazine and Ativan on home for antiemetics to use as needed. We discussed that she would be getting multiple premedications prior to her chemotherapy administration today. 6. The patient and family were informed of chemotherapy plan and specific drugs were discussed. We also discussed how chemotherapy works and identified common side effects including alopecia; myelosuppression-including neutropenia, anemia, bleeding or bruising; skin changes; mouth sores; drug hypersensitivity/allergic reactions or anaphylaxis and extravasation. They have also been informed how to contact the clinic with side effects or symptoms, including but not limited to fever greater than 100.4 degrees, chills, sore throat, bleeding or bruising that is not explained or mouth sores, cough, nasal discharge, diarrhea, constipation, nausea and/or vomiting not relieved with medications on hand at home, as well as any other concern or question they may have. Our hours are 8:00 a.m. to 4:30 p.m. on Friday through and 8-12:00 on Friday. However, someone is hotel receptionist 24 hours per day and they have been advised to contact the [facility] at if it is after hours. We have also discussed potential long-term side effects of chemotherapy including secondary cancers, infertility, pulmonary complications, cardiac complications, and again peripheral neuropathy. We have discussed that they certainly need to let us know before taking any antioxidants or herbal or further dietary supplements, as we are unsure of how these agents react with chemotherapy and we request that they avoid these products for now. They were informed that it is okay to take multivitamins at normal doses. They verbally state that they understand to take all medications as directed by their healthcare provider unless otherwise indicated. They also verbalized understanding to leave the pressure dressing on the intravenous administration site for at least two hours after treatment. Instructions for oral care with baking soda and salt water rinses as well as a guide for use of [id number] medication were provided with the treatment plan. They have been given a written patient treatment plan, of which a copy is in the chart, as well as specific drug information. They have no questions and verbalized understanding and are willing to proceed with chemotherapy at this time. Greater than 45 minutes was spent [id number] with Mrs. Fermin and her , Carli, in review of the plan of care, side effect of medication and management. Signed By: Ghada Cao-, AOCNP Andrei Landeros MD <<Signature on File>>
== END 2020-04-04 09:35 | disposition home or self-care (01) ==
LOC: ONCMED 09:40
PROVIDERS: PCP Internal Medicine; Visit Provider Nurse Practitioner
DX: Z51.11 Encounter for antineoplastic chemotherapy (principal); C50.411 Malignant neoplasm of upper-outer quadrant of right female breast; Z17.1 Estrogen receptor negative status [ER-]; M25.511 Pain in right shoulder; Z87.891 Personal history of nicotine dependence; Z76.89 Persons encountering health services in other specified circumstances
CPT/HCPCS: 80053; 85025; 96367; 96372; 96413; 96417; 99215; J1100; J1200; J1453; J2469; J2505; J7040; J7050; J9000; J9070

== ENCOUNTER 2020-04-14 14:12 | Outpatient (RCR) | payer SELFPAY ==
[2020-04-11] MEDS: alteplase 1 mg/mL SDV 2 mL 2 MG IV (12:38)
[2020-04-11 13:41] LABS: Basophils % 1.8 %; Eosinophils # 0.1 10^3/uL (0.0-0.8); Eosinophils % 3.1 %; Hematocrit 35.9 % (37.0-47.0); Hemoglobin 11.3 g/dL (11.5-15.3); Lymphocytes # 1.1 10^3/uL (0.8-4.8); Lymphocytes % 48.9 %; Mean Corpuscular HGB Conc 31.5 g/dL (30.0-36.0); Mean Corpuscular Hemoglobin 28.4 pg (28.0-34.0); Mean Corpuscular Volume 90.2 fL (81-99); Mean Platelet Volume 10.3 fL (7.4-10.4); Monocytes # 0.3 10^3/uL (0.2-0.9); Monocytes % 11.1 %; Neutrophils % 32.4 %; Nucleated Red Blood Cells % 0 %; Platelet Count 171 10^3/cmm (130-400); Red Blood Count 3.98 10^6/uL (4.1-5.3); Red Cell Distribution Width 11.9 % (12.1-15.1); White Blood Count 2.3 10^3/uL (4.0-10.0)
[2020-04-11 14:00] LABS: Alanine Aminotransferase 12 U/L (0-33); Albumin Level 3.7 g/dL (3.5-5.2); Alkaline Phosphatase 113 IU/L (35-105); Anion Gap 13.2 (5-19); Aspartate Amino Transferase 12 U/L (0-32); Blood Urea Nitrogen 11 mg/dL (6-20); Calcium 8.3 mg/dL (8.5-10.5); Carbon Dioxide 26 mmol/L (22-29); Chloride 100 mmol/L (98-107); Globulin 2.4 g/dL (1.3-4.6); Glomerular Filtration Rate 104.6 mL/min (90-130); Glucose 83 mg/dL (65-115); Osmolality Calculated 275 mOsm/kg (285-295); Potassium 4.2 mmol/L (3.5-5.1); Sodium 135 mmol/L (136-145); Total Bilirubin 0.3 mg/dL (0.15-1.2); Total Protein 6.1 g/dL (6.6-8.7)
[2020-04-11 14:20] LABS: Neutrophils # 0.7 10^3/uL (1.8-7.7)
[2020-04-11 14:21] LABS: Slide Review Slide Review Perform
--- NOTE | 2020-04-14 | USCV_ITS ---
GarethLisbeth waggoner Age: 54 Gender: F : 1965 Exam Date: 04/14/2020 11:52 Ordering Phys: Irais Collazo NP Technologist: Sushma Brooke Exam Location: [facility] – [place] Indication: SWELLING HISTORY: Upper extremity swelling. PROCEDURES: Venous duplex imaging was performed in only the left upper extremity. The following venous structures were evaluated: internal jugular vein, subclavian vein, axillary vein, and brachial veins. In addition, the basilic vein, cephalic vein, radial vein, and ulnar vein. Serial compression, augmentation maneuvers, and spectral Doppler flow evaluation were performed. FINDINGS: Normal 2-D, color Doppler and phasicity noted in the left upper extremity venous system extending from the left internal jugular vein through the main forearm. No thrombosis or occlusion noted. Additional imaging of the left subclavian vein is negative. CONCLUSIONS No left upper extremity DVT. Dr. Jayne Ulloa DO (Electronically Signed) Final Date: 14 Apr 2020 12:46 Amended: 14 Apr 2020 15:46 C
--- NOTE | 2020-04-16 18:59 | ONC FU_ITS ---
[facility] Patient Note Patient: Lisbeth Fermin Unit #: [id number]: 1965 Dictated By: Ghada CaoDate of Visit: April 11, 2020 Onc MED Follow-Up/Prog Note Chief Complaint: right breast cancer History of Present Illness: Mrs. Fermin is a 54-year-old female, with a history of right breast mass. In November 2019 she noted a mass in her right breast. As it did not go away, she underwent mammogram which showed a mass in her right breast. She underwent ultrasound of right breast which showed a mass at 10-12:00, large irregular hypoechoic solid lesion taller than wide, measuring 3.8 x 2.1 x 4.9 cm. The mass was highly suspicious for malignancy. She also had an adjacent smaller solid satellite nodules measuring 1.9 x 1.4 x 1.2 cm and 0.9 x 0.5 x 0.6 cm mass. She then underwent ultrasound-guided core needle biopsies on 01/21/2020. The pathology reported invasive ductal carcinoma of breast. Positive in 5 out of 5 core biopsies. ER/MT negative e.g. (less than 1% although in the report MT was mentioned positive but it was less than 1% and went confirmed with pathology, Dr. Mckinnon said it should be negative). HER-2/cristobal negative as well. Mrs Fermin underwent right breast wide excisional lumpectomy on 02/10/2020. The final pathology report confirmed invasive tumor 5.5 x 4.5 x 3.5 cm. focally extends to the inked posterior margin; remaining margins free of invasive carcinoma. Extensive ductal carcinoma in situ with focal apocrine features, high nuclear grade, carcinoma in situ extends to within 1 mm of inked inferior margin, and remaining margins were free., Complex sclerosing lesion, extensive sclerosing adenosis, fibrocystic changes, cystic and papillary apocrine metaplasia. One sentinel lymph node was removed and examined showed no evidence of metastatic disease. Patient underwent reexcision of positive surgical margin on 02/24/2020 and obtain clear surgical margins. Patient denies any history of bony pains except chronic right shoulder rotator cuff and history of right knee replacement. History of smoking, occasional alcohol use. Menarche at age 15, first at age 26, no history of hormone use. Last menstrual period was in December 2018. Mrs. Fermin was evaluated with Dr. Landeros. He recommended treatment of her triple negative, sentinel node negative breast cancer with Adriamycin Cytoxan dose dense for 4 cycles followed by Taxotere for 12 weeks. She began her first cycle of chemotherapy on March. She is here today for day 8 followup. She states she had a little nausea Friday night into Friday and is felt kind of blah. She states that resolved by Friday and she has felt pretty good since then. She has been eating pretty good for her. Her energy is fair. She states she does tire out easily but is able to accomplish her ADLs without assistance. She did receive Neulasta and does not note any particular bone pain with that. She denies any fever or chills. She has had no signs of infection. She denies any diarrhea or constipation currently. She is had no lower extremity edema. She denies any orthopnea. She denies palpitations. She denies any urinary concerns. Overall she states that she is doing well. She has had some hair thinning but not complete alopecia as of yet. Her ECOG is 1. Past Medical History: Anxiety Arthritis Depression History of right breast cancer Migraine headaches Past Surgical History: Breast biopsy Cervical fusion Left knee arthroscopy Right breast lumpectomy Right foot tendon avulsion Right total knee replacement Allergies: Latex and Penicillins. Medications: Acetaminophen 1 - 2 Tablet (of 325 mg) Oral daily PRN Acid Control Maximum Strength 1 Tablet (of 20 mg) Oral at bedtime PRN ALPRAZolam 1 (0.5 mg) Tablet Oral t.i.d. Claritin 1 Tablet (of 10 mg) Oral at bedtime Cymbalta 1 (30 mg) Capsule Delayed Release Particles Oral daily Dexamethasone 1 Tablet (of 4 mg) Oral HYDROcodone-Acetaminophen 1 Tablet (of 10-325 mg) Oral q 6 hours PRN Lidocaine-Prilocaine 1 (2.5-2.5 %) Cream Topical daily PRN LORazepam 0.5 - 1 Tablet (of 1 mg) Oral t.i.d. PRN Methocarbamol 1 - 2 Tablet (of 750 mg) Oral t.i.d. PRN Prochlorperazine Maleate 1 Tablet (of 10 mg) Oral q 4 hours PRN Family History: Ms. Fermin's mother is alive: colon cancer. Ms. Fermin's father at age 71: colon cancer. 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 Ms. Fermin quit smoking 3 years ago but had smoked 1.0 pack/day for 25 years. She drinks occasionally. She consumes 2 days/week. Ms. Fermin reports the following support systems: lives with spouse, significant other, family, or friends, lives in own house, supportive family/friends willing to assist with needs, and adequate transportation available for expected visits. Her diet consists of regular meals. She indicates her activity level as: regular exercise. Review Of Symptoms: Constitutional Denies fevers, chills, night sweats, excessive fatigue or weight loss. Allergic/Immunologic No reactions. Eyes Denies significant visual changes. No diplopia. No amaurosis. ENMT Denies changes in hearing, sore throat, mouth sores, difficulty or changes in swallowing ability, and/or sinus drainage. Endocrine No diabetes, thyroid disease or hormone replacement. Denies hot flashes or night sweats. Hematologic/Lymphatic Denies easy bruising or bleeding. The patient denies any tender or palpable lymph nodes. Respiratory Denies dyspnea on exertion, chest pain, cough or hemoptysis. Denies orthopnea. Cardiovascular Denies anginal chest pain, palpitations or orthopnea. Gastrointestinal Denies nausea, vomiting, diarrhea, GI bleeding, or constipation. Denies change in bowel habits and/or stool color, no heartburn or early satiety. Genitourinary (F) No hematuria, hesitancy, incontinence, vaginal bleeding, discharge or other problems with urination. Musculoskeletal Denies joint pain, swelling or redness. No decreased range of motion. Integumentary Denies chronic rashes, inflammation, ulcerations or skin changes. Neurologic Denies headache, blurred vision, and no areas of focal weakness or numbness. Normal gait. No sensory problems. Psychiatric Denies insomnia, depression, monae or mood swings. Anxiety related to diagnosis and starting treatment today. Vital Signs: ,0 - Fully active, able to carry on all predisease activities without restrictions. (ECOG) Physical Examination: Constitutional Alert, oriented, no acute distress. Skin pink, warm and dry. Head Normocephalic; atraumatic. Eyes Conjunctivae and sclerae are clear and without icterus. Pupils are reactive and equal. Neck Supple without masses or thyromegaly. No jugular venous distension. Hematologic/Lymphatic No petechiae or purpura. No tender or palpable lymph nodes in the cervical or supraclavicular areas. Respiratory Lungs are clear to auscultation without rhonchi or wheezing. Cardiovascular Regular rate and rhythm of heart without murmurs,clicks, gallops or rubs. Chest Left venous access insertion site is healing well. Abdomen Non-tender, non-distended, no masses or ascites. Good bowel sounds noted in all quads. No guarding or rebound tenderness. No pulsatile masses. Back/Spine Non-tender to palpation. Extremities No visible deformities, no cyanosis, clubbing or edema. Musculoskeletal No tenderness or swelling, normal range of motion without obvious weakness. Integumentary No rashes or lesions. Neurologic No sensory or motor deficits, normal cerebellar function, normal gait. Psychiatric Alert and oriented times three. Coherent speech. Verbalizes understanding of our discussions today. Laboratory:Test performed on April 11, 2020 13:14 Sodium 135 mmol/L Potassium 4.2 mmol/L Chloride 100 mmol/L CO2 26 mmol/L Anion Gap 13.2 BUN 11 mg/dL Creatinine 0.6 mg/dL Cr Clearance (Est) 202.8200 mL/min eGFR 104.6 mL/min Glucose 83 mg/dL Calcium 8.3 mg/dL Protein, Total 6.1 g/dL Albumin 3.7 g/dL Globulin 2.4 g/dL Bilirubin, Total 0.3 mg/dL ALT (SGPT) 12 U/L AST (SGOT) 12 U/L Alkaline Phosphatase 113 IU/L WBC 2.3 10 3/uL RBC 3.98 10 6/uL HGB 11.3 g/dL HCT 35.9 % MCV 90.2 fL MCH 28.4 pg MCHC 31.5 g/dL RDW 11.9 % Platelet Count 171 10 3/cmm MPV 10.3 fL Neutrophils 0.7 10 3/uL Lymphocytes 1.1 10 3/uL Monocytes 0.3 10 3/uL Eosinophils 0.1 10 3/uL Basophils 0.0 10 3/uL Neutrophil % 32.4 % Lymphocyte % 48.9 % Monocyte % 11.1 % Eosinophil % 3.1 % Basophils % 1.8 % CBC Slide Review Slide Review Perform SLIDE REVIEW AGREES WITH AUTOMATION Impression: Invasive ductal carcinoma status post right breast wide excisional lumpectomy done on 02/09/2019 final pathology report showed invasive ductal carcinoma 5.5 x 4.5 x 3.5 cm, focally extends to the inked posterior margin, extensive ductal carcinoma in situ with focal apocrine features, high nuclear grade. Followed by reexcision of often involved margin on 02/24/2020 with clear margins pT3 and 1 sentinel lymph node was examined showed no evidence of metastatic disease pNo stage IIB, ER/MT/HER-2/cristobal negative with high Ki-67 e.g. 38%. chronic right shoulder pain due to rotator cuff Dr Landeros discussed with Mrs Fermin her disease status. She has locally advanced disease e.g. T3 lesion, status post wide excision of right breast lumpectomy/partial mastectomy with clear surgical margins and 1 sentinel lymph node was examined showed no evidence of metastatic disease, clinical stage IIB. Breast cancer prognostic profiling showed triple negative disease e.g. ER/MT/HER-2/cristobal negative. Being triple negative and locally advanced disease, patient is a candidate for adjuvant chemotherapy, as per [facility] CCN guidelines, we'll consider dose dense Adriamycin Cytoxan e.g. every 2 weeks ???4 with Neulasta support to prevent chemotherapy-induced neutropenia. Followed by weekly Taxol ???12, followed by postlumpectomy radiation therapy. As discussed previously she had significant hyperglycemia, anxiety, insomnia and palpitations with an inadvertently taken steroid premed prior to her chemotherapy today. I do feel that she will not tolerate the steroids and would like to pursue obtaining Abraxane for her. Plan: 1. Proceed with cycle 1 Adriamycin/Cytoxan this is day 8. 2. She did receive Neulasta support. 3. Labs from today were reviewed in detail and discussed with Mrs. Fermin and a copy was given to her. WBC 2.3, hemoglobin 11.3, platelets 171,000 ANC is 700. 4. Neutropenic precautions were discussed and Mrs. Fermin has been advised to proceed with following them. She will have a prescription for the levaloxacin of 500 mg daily on hand in the event that she runs a fever greater than 100.4 or develops any signs or symptoms of infection. 5. She was reinstructed on numbers to call if she has any questions or signs of infection or concerns. 6. We will see her back next week for cycle 2 of 4 Adriamycin Cytoxan. 7. It has been opted to change her 12 weekd of taxane to weekly Abraxane given that she had significant hyperglycemia last week as she inadvertently took her steroid premedication for the Adriamycin/Cytoxan. Her random glucose today was 83 compared to 282 last week when she took the steroids. She also developed insomnia anxiety and palpitations with the steroids. Dr. Landeros has recommended pursuing the Abraxane and Ms. Fermin agrees. Signed By: Ghada Coa-, AOP Andrei Landeros MD <<Signature on File>>
== END 2020-04-16 23:59 | disposition home or self-care (01) ==
LOC: RAD 14:12
PROVIDERS: Nurse Practitioner; PCP Internal Medicine; Visit Provider Internal Medicine Hematology & Oncology
DX: C50.411 Malignant neoplasm of upper-outer quadrant of right female breast (principal); M79.89 Other specified soft tissue disorders; R60.9 Edema, unspecified; M25.511 Pain in right shoulder; T38.0X5D Adverse effect of glucocorticoids and synthetic analogues, subsequent encounter; Z17.1 Estrogen receptor negative status [ER-]; Z87.891 Personal history of nicotine dependence; Z79.899 Other long term (current) drug therapy
CPT/HCPCS: 36593; 80053; 85025; 93971; 96374; 99214; J2997

== ENCOUNTER 2020-05-16 06:46 | Outpatient (RCR) | payer MEDICAID, SELFPAY ==
[2020-04-17 15:38] LABS: Basophils # 0.1 10^3/uL (0.0-0.1); Eosinophils % 0.5 %; Hematocrit 36.1 % (37.0-47.0); Hemoglobin 11.3 g/dL (11.5-15.3); Lymphocytes # 1.8 10^3/uL (0.8-4.8); Lymphocytes % 20.7 %; Mean Corpuscular HGB Conc 31.3 g/dL (30.0-36.0); Mean Corpuscular Hemoglobin 28.5 pg (28.0-34.0); Mean Corpuscular Volume 90.9 fL (81-99); Mean Platelet Volume 9.5 fL (7.4-10.4); Monocytes # 0.7 10^3/uL (0.2-0.9); Monocytes % 8.2 %; Neutrophils # 5.5 10^3/uL (1.8-7.7); Neutrophils % 62.8 %; Nucleated Red Blood Cells % 0.2 %; Platelet Count 389 10^3/cmm (130-400); Red Blood Count 3.97 10^6/uL (4.1-5.3); Red Cell Distribution Width 11.9 % (12.1-15.1); White Blood Count 8.8 10^3/uL (4.0-10.0)
[2020-04-17 16:00] LABS: Alanine Aminotransferase 21 U/L (0-33); Albumin Level 3.9 g/dL (3.5-5.2); Alkaline Phosphatase 107 IU/L (35-105); Anion Gap 15.9 (5-19); Aspartate Amino Transferase 22 U/L (0-32); Blood Urea Nitrogen 10 mg/dL (6-20); Calcium 9.1 mg/dL (8.5-10.5); Carbon Dioxide 26 mmol/L (22-29); Chloride 101 mmol/L (98-107); Globulin 2.8 g/dL (1.3-4.6); Glucose 108 mg/dL (65-115); Osmolality Calculated 285 mOsm/kg (285-295); Potassium 3.9 mmol/L (3.5-5.1); Sodium 139 mmol/L (136-145); Total Bilirubin 0.2 mg/dL (0.15-1.2); Total Protein 6.7 g/dL (6.6-8.7)
[2020-04-17 17:36] LABS: Slide Review Slide Review Perform
[2020-04-18] MEDS: alteplase 1 mg/mL SDV 2 mL 2 MG IV (10:40)
[2020-04-18] MEDS: sodium chloride 0.9% 250 ML 999 ML IV (11:22)
--- NOTE | 2020-04-18 11:30 | ONC FU_ITS ---
[facility] Patient Note Patient: Lisbeth Fermin Unit #: [id number]: 1965 Dictated By: Ghada CaoDate of Visit: Apr 18, 2020 Onc MED Follow-Up/Prog Note Chief Complaint: Right breast cancer History of Present Illness: Mrs. Fermin is a 54-year-old female, with a history of right breast mass. In November 2019 she noted a mass in her right breast. As it did not go away, she underwent mammogram which showed a mass in her right breast. She underwent ultrasound of right breast which showed a mass at 10-12:00, large irregular hypoechoic solid lesion taller than wide, measuring 3.8 x 2.1 x 4.9 cm. The mass was highly suspicious for malignancy. She also had an adjacent smaller solid satellite nodules measuring 1.9 x 1.4 x 1.2 cm and 0.9 x 0.5 x 0.6 cm mass. She then underwent ultrasound-guided core needle biopsies on 01/21/2020. The pathology reported invasive ductal carcinoma of breast. Positive in 5 out of 5 core biopsies. ER/MT negative e.g. (less than 1% although in the report MT was mentioned positive but it was less than 1% and went confirmed with pathology, Dr. Mckinnon said it should be negative). HER-2/cristobal negative as well. Mrs Fermin underwent right breast wide excisional lumpectomy on 02/10/2020. The final pathology report confirmed invasive tumor 5.5 x 4.5 x 3.5 cm. focally extends to the inked posterior margin; remaining margins free of invasive carcinoma. Extensive ductal carcinoma in situ with focal apocrine features, high nuclear grade, carcinoma in situ extends to within 1 mm of inked inferior margin, and remaining margins were free., Complex sclerosing lesion, extensive sclerosing adenosis, fibrocystic changes, cystic and papillary apocrine metaplasia. One sentinel lymph node was removed and examined showed no evidence of metastatic disease. She underwent reexcision of positive surgical margin on 02/24/2020 and obtain clear surgical margins. Mrs Fermin denies any history of bony pains except chronic right shoulder rotator cuff and history of right knee replacement. History of smoking, occasional alcohol use. Menarche at age 15, first at age 26, no history of hormone use. Last menstrual period was in December 2018. Mrs. Fermin was evaluated with Dr. Landeros. He recommended treatment of her triple negative, sentinel node negative breast cancer with Adriamycin Cytoxan dose dense for 4 cycles followed by Taxotere for 12 weeks. She began her first cycle of chemotherapy on April 04, 2020. We have planned to exchange weekly Taxotere with weekly Abraxane due to significant side effects with steroids. She had significant hyperglycemia, insomnia, worsening anxiety, and mood swings. That was with 1 dose that was intimately taken in preparation for her first chemotherapy with Adriamycin and Cytoxan. Ms. Fermin is here today for follow-up. She is due for cycle 2 Adriamycin Cytoxan. Overall she is doing well. She has developed some swelling in her left arm that has been worked up with a venous Doppler which was negative. Her port is working well. She was placed on Xarelto for swelling in the left arm and a venogram is pending. I believe that is scheduled for later today. She denies any other swelling. She denies any pain or redness or warmth with the left arm. She states she noticed it was swelling because her Fitbit was a little too tight. She denies any other complaints. She is had no fever or chills since her last visit. She is had no signs of infection. She states her energy is fair and she is able to do all of her ADLs without assistance. She is eating good. She denies any mouth sores, sore throat or difficulty swallowing. She denies any shortness of breath orthopnea. She denies any chest pain or palpitations. Her bowels are normal for her. She denies any lower extremity edema. Her ECOG is 0. Past Medical History: Anxiety Arthritis Depression History of right breast cancer Migraine headaches Past Surgical History: Breast biopsy Cervical fusion Left knee arthroscopy Right breast lumpectomy Right foot tendon avulsion Right total knee replacement Allergies: Latex and Penicillins. Medications: Acid Control Maximum Strength 1 Tablet (of 20 mg) Oral at bedtime PRN ALPRAZolam 1 (0.5 mg) Tablet Oral t.i.d. Claritin 1 Tablet (of 10 mg) Oral at bedtime Cymbalta 1 (30 mg) Capsule Delayed Release Particles Oral daily HYDROcodone-Acetaminophen 1 Tablet (of 10-325 mg) Oral q 6 hours PRN Lidocaine-Prilocaine 1 (2.5-2.5 %) Cream Topical daily PRN LORazepam 0.5 - 1 Tablet (of 1 mg) Oral t.i.d. PRN Meloxicam 1 (15 mg) Tablet Oral b.i.d. Methocarbamol 1 - 2 Tablet (of 750 mg) Oral t.i.d. PRN Prochlorperazine Maleate 1 Tablet (of 10 mg) Oral q 4 hours PRN Prochlorperazine Maleate 1 Tablet (of 10 mg) Oral q 4 hours PRN Xarelto 1 Tablet (of 15 mg) Oral b.i.d. Family History: Ms. Fermin's mother is alive: colon cancer. Ms. Fermin's father at age 71: colon cancer. 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 Ms. Fermin quit smoking 3 years ago but had smoked 1.0 pack/day for 25 years. She drinks occasionally. She consumes 2 days/week. Ms. Fermin reports the following support systems: lives with spouse, significant other, family, or friends, lives in own house, supportive family/friends willing to assist with needs, and adequate transportation available for expected visits. Her diet consists of regular meals. She indicates her activity level as: regular exercise. Review Of Symptoms: Constitutional Denies fevers, chills, night sweats, excessive fatigue or weight loss. Allergic/Immunologic seasonal allergies-cottonwood trees. Eyes Denies significant visual changes. No diplopia. No amaurosis. ENMT Denies changes in hearing, sore throat, mouth sores, difficulty or changes in swallowing ability, and/or sinus drainage. Endocrine No diabetes, thyroid disease or hormone replacement. Denies hot flashes or night sweats. Hematologic/Lymphatic Denies easy bruising or bleeding. The patient denies any tender or palpable lymph nodes. Breasts no new concerns Respiratory Denies dyspnea on exertion, chest pain, cough or hemoptysis. Denies orthopnea. Cardiovascular Denies anginal chest pain, palpitations or orthopnea. Gastrointestinal Denies nausea, vomiting, diarrhea, GI bleeding, or constipation. Denies change in bowel habits and/or stool color, no heartburn or early satiety. Genitourinary (F) No hematuria, hesitancy, incontinence, vaginal bleeding, discharge or other problems with urination. Musculoskeletal Denies joint pain, swelling or redness. No decreased range of motion. Integumentary Denies chronic rashes, inflammation, ulcerations or skin changes. Neurologic Denies headache, blurred vision, and no areas of focal weakness or numbness. Normal gait. No sensory problems. Psychiatric Denies insomnia, depression, monae or mood swings. Vital Signs: Performed on Apr 18, 2020 09:28 Height - 72.00 in Weight - 272.6 lbs (HIGH) BSA - 2.43 sq.m BMI - 36.97 (HIGH) Temperature - 98.2 F (LOW) Pulse - 90 /min Respiration - 20 /min BP - 141/93 mm(hg) (HIGH) O2 Sat - 98 % Pain - 5,0 - Fully active, able to carry on all predisease activities without restrictions. (ECOG) Physical Examination: Constitutional Alert, oriented, no acute distress. Skin pink, warm and dry. Head Normocephalic; atraumatic. Eyes Conjunctivae and sclerae are clear and without icterus. Pupils are reactive and equal. Neck Supple without masses or thyromegaly. No jugular venous distension. Hematologic/Lymphatic No petechiae or purpura. No tender or palpable lymph nodes in the cervical or supraclavicular areas. Respiratory Lungs are clear to auscultation without rhonchi or wheezing. Cardiovascular Regular rate and rhythm of heart without murmurs,clicks, gallops or rubs. Chest Left venous access insertion site is unremarkable. Abdomen Non-tender, non-distended, no masses or ascites. No guarding or rebound tenderness. No pulsatile masses. Back/Spine Non-tender to palpation. Extremities No visible deformities, no cyanosis, clubbing or edema. Musculoskeletal No tenderness or swelling, normal range of motion without obvious weakness. Integumentary No rashes or lesions. Neurologic No sensory or motor deficits, normal cerebellar function, normal gait. Psychiatric Alert and oriented times three. Coherent speech. Verbalizes understanding of our discussions today. Laboratory:Test performed on April 11, 2020 13:14 Sodium 135 mmol/L Potassium 4.2 mmol/L Chloride 100 mmol/L CO2 26 mmol/L Anion Gap 13.2 BUN 11 mg/dL Creatinine 0.6 mg/dL Cr Clearance (Est) 202.8200 mL/min eGFR 104.6 mL/min Glucose 83 mg/dL Calcium 8.3 mg/dL Protein, Total 6.1 g/dL Albumin 3.7 g/dL Globulin 2.4 g/dL Bilirubin, Total 0.3 mg/dL ALT (SGPT) 12 U/L AST (SGOT) 12 U/L Alkaline Phosphatase 113 IU/L WBC 2.3 10 3/uL RBC 3.98 10 6/uL HGB 11.3 g/dL HCT 35.9 % MCV 90.2 fL MCH 28.4 pg MCHC 31.5 g/dL RDW 11.9 % Platelet Count 171 10 3/cmm MPV 10.3 fL Neutrophils 0.7 10 3/uL Lymphocytes 1.1 10 3/uL Monocytes 0.3 10 3/uL Eosinophils 0.1 10 3/uL Basophils 0.0 10 3/uL Neutrophil % 32.4 % Lymphocyte % 48.9 % Monocyte % 11.1 % Eosinophil % 3.1 % Basophils % 1.8 % CBC Slide Review Slide Review Perform SLIDE REVIEW AGREES WITH AUTOMATION Impression: Invasive ductal carcinoma status post right breast wide excisional lumpectomy done on 02/09/2019 final pathology report showed invasive ductal carcinoma 5.5 x 4.5 x 3.5 cm, focally extends to the inked posterior margin, extensive ductal carcinoma in situ with focal apocrine features, high nuclear grade. Followed by reexcision of often involved margin on 02/24/2020 with clear margins pT3 and 1 sentinel lymph node was examined showed no evidence of metastatic disease pNo stage IIB, ER/MT/HER-2/cristobal negative with high Ki-67 e.g. 38%. chronic right shoulder pain due to rotator cuff Dr Landeros discussed with Mrs Fermin her disease status. She has locally advanced disease e.g. T3 lesion, status post wide excision of right breast lumpectomy/partial mastectomy with clear surgical margins and 1 sentinel lymph node was examined showed no evidence of metastatic disease, clinical stage IIB. Breast cancer prognostic profiling showed triple negative disease e.g. ER/MT/HER-2/cristobal negative. Being triple negative and locally advanced disease, patient is a candidate for adjuvant chemotherapy, as per [facility] guidelines, we'll consider dose dense Adriamycin Cytoxan e.g. every 2 weeks ???4 with Neulasta support to prevent chemotherapy-induced neutropenia. Followed by weekly Taxol ???12, followed by postlumpectomy radiation therapy. As discussed previously she had significant hyperglycemia, anxiety, insomnia and palpitations with an inadvertently taken steroid premed prior to her chemotherapy today. I do feel that she will not tolerate the steroids and would like to pursue obtaining Abraxane for her. Plan: 1. Proceed with cycle 2 Adriamycin/Cytoxan this is day 1. 2. Continue Neulasta support due to day 8 ANC of 700 with cycle 1. 3. Labs from today were reviewed in detail and discussed with Mrs. Fermin and a copy was given to her. WBC 8.8, hemoglobin 11.3, platelets 389,000 ANC is 5500. 4. Venogram of left upper extremity as scheduled for evaluation of unilateral edema. Continue Xarelto. 6. We will see her back in 2 weeks for cycle 3 of 4 Adriamycin Cytoxan. 7. It has been opted to change her 12 weekd of taxane to weekly Abraxane given that she had significant hyperglycemia last week as she inadvertently took her steroid premedication for the Adriamycin/Cytoxan. Her random glucose today was 83 compared to 282 last week when she took the steroids. She also developed insomnia anxiety and palpitations with the steroids. Dr. Landeros has recommended pursuing the Abraxane and Mrs. Fermin agrees. 8. Mrs. Serrano was instructed to contact us in the interim should questions or problems arise. Signed By: Ghada Cao-, [facility] Andrei Landeros MD <<Signature on File>>
[2020-04-18] MEDS: pegfilgrastim 6 mg/0.6 mL Kit (onpro) SUBCUT (16:00)
[2020-04-25 09:39] LABS: Basophils # 0.1 10^3/uL (0.0-0.1); Basophils % 3.2 %; Eosinophils % 0.5 %; Hematocrit 33.9 % (37.0-47.0); Hemoglobin 10.9 g/dL (11.5-15.3); Lymphocytes # 0.6 10^3/uL (0.8-4.8); Lymphocytes % 27.2 %; Mean Corpuscular HGB Conc 32.2 g/dL (30.0-36.0); Mean Corpuscular Hemoglobin 29.1 pg (28.0-34.0); Mean Corpuscular Volume 90.4 fL (81-99); Mean Platelet Volume 9.4 fL (7.4-10.4); Monocytes # 0.2 10^3/uL (0.2-0.9); Monocytes % 9.2 %; Neutrophils # 1.3 10^3/uL (1.8-7.7); Neutrophils % 58.1 %; Nucleated Red Blood Cells % 0 %; Platelet Count 322 10^3/cmm (130-400); Red Blood Count 3.75 10^6/uL (4.1-5.3); Red Cell Distribution Width 12.3 % (12.1-15.1); White Blood Count 2.2 10^3/uL (4.0-10.0)
[2020-04-25 09:47] LABS: Alanine Aminotransferase 10 U/L (0-33); Alkaline Phosphatase 125 IU/L (35-105); Aspartate Amino Transferase 12 U/L (0-32); Blood Urea Nitrogen 14 mg/dL (6-20); Calcium 9.3 mg/dL (8.5-10.5); Carbon Dioxide 24 mmol/L (22-29); Chloride 100 mmol/L (98-107); Globulin 2.7 g/dL (1.3-4.6); Glomerular Filtration Rate 104.6 mL/min (90-130); Glucose 126 mg/dL (65-115); Osmolality Calculated 278 mOsm/kg (285-295); Sodium 135 mmol/L (136-145); Total Bilirubin 0.5 mg/dL (0.15-1.2); Total Protein 6.7 g/dL (6.6-8.7)
[2020-05-01 14:56] LABS: Alanine Aminotransferase 12 U/L (0-33); Albumin Level 4.3 g/dL (3.5-5.2); Alkaline Phosphatase 107 IU/L (35-105); Anion Gap 14.1 (5-19); Aspartate Amino Transferase 15 U/L (0-32); Blood Urea Nitrogen 8 mg/dL (6-20); Calcium 9.4 mg/dL (8.5-10.5); Carbon Dioxide 28 mmol/L (22-29); Chloride 102 mmol/L (98-107); Glomerular Filtration Rate 104.6 mL/min (90-130); Glucose 116 mg/dL (65-115); Osmolality Calculated 287 mOsm/kg (285-295); Potassium 4.1 mmol/L (3.5-5.1); Sodium 140 mmol/L (136-145); Total Bilirubin 0.2 mg/dL (0.15-1.2); Total Protein 7.3 g/dL (6.6-8.7)
[2020-05-01 16:45] LABS: Basophils # 0.1 10^3/uL (0.0-0.1); Basophils % 2.2 %; Eosinophils % 0.3 %; Hematocrit 37.6 % (37.0-47.0); Lymphocytes % 26.2 %; Mean Corpuscular HGB Conc 31.9 g/dL (30.0-36.0); Mean Corpuscular Hemoglobin 28.6 pg (28.0-34.0); Mean Corpuscular Volume 89.5 fL (81-99); Mean Platelet Volume 9.6 fL (7.4-10.4); Monocytes # 0.8 10^3/uL (0.2-0.9); Monocytes % 22.9 %; Neutrophils # 1.6 10^3/uL (1.8-7.7); Nucleated Red Blood Cells % 1.1 %; Platelet Count 323 10^3/cmm (130-400); Red Cell Distribution Width 12.9 % (12.1-15.1); White Blood Count 3.7 10^3/uL (4.0-10.0)
[2020-05-01 18:54] LABS: Neutrophils % 48.4 %
[2020-05-01 18:55] LABS: Slide Review Slide Review Perform
[2020-05-02] MEDS: sodium chloride 0.9% 250 ML 999 ML IV (12:06)
[2020-05-02] MEDS: pegfilgrastim 6 mg/0.6 mL Kit (onpro) SUBCUT (15:00)
--- NOTE | 2020-05-07 12:45 | ONC FU_ITS ---
[facility] Patient Note Patient: Lisbeth Fermin Unit #: [id number]: 1965 Dictated By: Ghada CaoDate of Visit: May 02, 2020 Onc MED Follow-Up/Prog Note Chief Complaint: Right breast cancer History of Present Illness: Mrs. Fermin is a 54-year-old female, with a history of right breast mass. In November 2019 she noted a mass in her right breast. As it did not go away, she underwent mammogram which showed a mass in her right breast. She underwent ultrasound of right breast which showed a mass at 10-12:00, large irregular hypoechoic solid lesion taller than wide, measuring 3.8 x 2.1 x 4.9 cm. The mass was highly suspicious for malignancy. She also had an adjacent smaller solid satellite nodules measuring 1.9 x 1.4 x 1.2 cm and 0.9 x 0.5 x 0.6 cm mass. She then underwent ultrasound-guided core needle biopsies on 01/21/2020. The pathology reported invasive ductal carcinoma of breast. Positive in 5 out of 5 core biopsies. ER/IL negative e.g. (less than 1% although in the report IL was mentioned positive but it was less than 1% and went confirmed with pathology, Dr. Mckinnon said it should be negative). HER-2/cristobal negative as well. Mrs Fermin underwent right breast wide excisional lumpectomy on 02/10/2020. The final pathology report confirmed invasive tumor 5.5 x 4.5 x 3.5 cm. focally extends to the inked posterior margin; remaining margins free of invasive carcinoma. Extensive ductal carcinoma in situ with focal apocrine features, high nuclear grade, carcinoma in situ extends to within 1 mm of inked inferior margin, and remaining margins were free., Complex sclerosing lesion, extensive sclerosing adenosis, fibrocystic changes, cystic and papillary apocrine metaplasia. One sentinel lymph node was removed and examined showed no evidence of metastatic disease. She underwent reexcision of positive surgical margin on 02/24/2020 and obtain clear surgical margins. Mrs Fermin denies any history of bony pains except chronic right shoulder rotator cuff and history of right knee replacement. History of smoking, occasional alcohol use. Menarche at age 15, first at age 26, no history of hormone use. Last menstrual period was in December 2018. Mrs. eFrmin was evaluated with Dr. Landeros. He recommended treatment of her triple negative, sentinel node negative breast cancer with Adriamycin Cytoxan dose dense for 4 cycles followed by Taxotere for 12 weeks. She began her first cycle of chemotherapy on April 04, 2020. We have planned to exchange weekly Taxotere with weekly Abraxane due to significant side effects with steroids. She had significant hyperglycemia, insomnia, worsening anxiety, and mood swings. That was with 1 dose that was intimately taken in preparation for her first chemotherapy with Adriamycin and Cytoxan. Ms. Fermin is here today for follow-up. She is due for cycle 3 Adriamycin Cytoxan. She states overall she is doing good. She did have an episode on Friday after her last treatment of some slight nausea but she did have emesis 1 time. She states that it has not recurred. She has felt a little ball for day or so afterwards but feels really good now . She states she is eating good. She has had some hair loss but not complete alopecia as of yet. She denies fever or chills. She states she has some hot flashes once in a while but nothing more than her normal. She denies any mouth sores, sore throat or difficulty swallowing. She states her breathing has been good. She denies any lower extremity edema. She denies cough or wheezing. She states her bowel and bladder have been normal for her. She denies any neuropathy. She denies any hearing changes at present. Her ECOG is 1. Past Medical History: Anxiety Arthritis Depression History of right breast cancer Migraine headaches Past Surgical History: Breast biopsy Cervical fusion Left knee arthroscopy Right breast lumpectomy Right foot tendon avulsion Right total knee replacement Allergies: Latex and Penicillins. Medications: Acid Control Maximum Strength 1 Tablet (of 20 mg) Oral at bedtime PRN ALPRAZolam 1 (0.5 mg) Tablet Oral t.i.d. PRN Claritin 1 Tablet (of 10 mg) Oral at bedtime Cymbalta 1 (30 mg) Capsule Delayed Release Particles Oral daily HYDROcodone-Acetaminophen 1 Tablet (of 10-325 mg) Oral q 6 hours PRN Lidocaine-Prilocaine 1 (2.5-2.5 %) Cream Topical daily PRN LORazepam 0.5 - 1 Tablet (of 1 mg) Oral t.i.d. PRN Meloxicam 1 (15 mg) Tablet Oral b.i.d. PRN Methocarbamol 1 - 2 Tablet (of 750 mg) Oral t.i.d. PRN Prochlorperazine Maleate 1 Tablet (of 10 mg) Oral q 4 hours PRN Xarelto 1 Tablet (of 15 mg) Oral b.i.d. Family History: Ms. Fermin's mother is alive: colon cancer. Ms. Fermin's father at age 71: colon cancer. 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 Ms. Fermin quit smoking 3 years ago but had smoked 1.0 pack/day for 25 years. She drinks occasionally. She consumes 2 days/week. Ms. Fermin reports the following support systems: lives with spouse, significant other, family, or friends, lives in own house, supportive family/friends willing to assist with needs, and adequate transportation available for expected visits. Her diet consists of regular meals. She indicates her activity level as: regular exercise. Review Of Symptoms: Constitutional Denies fevers, chills, night sweats, excessive fatigue or weight loss. Allergic/Immunologic seasonal allergies-cottonwood trees. Eyes Denies significant visual changes. No diplopia. No amaurosis. ENMT Denies changes in hearing, sore throat, mouth sores, difficulty or changes in swallowing ability, and/or sinus drainage. Endocrine No diabetes, thyroid disease or hormone replacement. Denies hot flashes or night sweats. Hematologic/Lymphatic Denies easy bruising or bleeding. The patient denies any tender or palpable lymph nodes. Breasts no new concerns Respiratory Denies dyspnea on exertion, chest pain, cough or hemoptysis. Denies orthopnea. Cardiovascular Denies anginal chest pain, palpitations or orthopnea. Gastrointestinal Denies nausea, diarrhea, GI bleeding, or constipation. Denies change in bowel habits and/or stool color, no heartburn or early satiety. She did have some vomiting of Friday after her last chemo treatment. She states it happened one time and did not recur. Genitourinary (F) No hematuria, hesitancy, incontinence, vaginal bleeding, discharge or other problems with urination. Musculoskeletal Denies joint pain, swelling or redness. No decreased range of motion. Integumentary Denies chronic rashes, inflammation, ulcerations or skin changes. Neurologic Denies headache, blurred vision, and no areas of focal weakness or numbness. Normal gait. No sensory problems. Psychiatric Denies insomnia, depression, monae or mood swings. Vital Signs: Performed on May 02, 2020 11:14 Height - 72.00 in Weight - 256.4 lbs (LOW) BSA - 2.37 sq.m BMI - 34.77 (HIGH) Temperature - 98.3 F (LOW) Pulse - 98 /min Respiration - 16 /min BP - 142/85 mm(hg) (HIGH) O2 Sat - 99 % Pain - 7,0 - Fully active, able to carry on all predisease activities without restrictions. (ECOG) Physical Examination: Constitutional Alert, oriented, no acute distress. Skin pink, warm and dry. Head Normocephalic; atraumatic. Eyes Conjunctivae and sclerae are clear and without icterus. Pupils are reactive and equal. Neck Supple without masses or thyromegaly. No jugular venous distension. Hematologic/Lymphatic No petechiae or purpura. No tender or palpable lymph nodes in the cervical or supraclavicular areas. Respiratory Lungs are clear to auscultation without rhonchi or wheezing. Cardiovascular Regular rate and rhythm of heart without murmurs,clicks, gallops or rubs. Chest Left venous access insertion site is unremarkable. Abdomen Non-tender, non-distended, no masses or ascites. No guarding or rebound tenderness. No pulsatile masses. Back/Spine Non-tender to palpation. Extremities No visible deformities, no cyanosis, clubbing or edema. Musculoskeletal No tenderness or swelling, normal range of motion without obvious weakness. Integumentary No rashes or lesions. Neurologic No sensory or motor deficits, normal cerebellar function, normal gait. Psychiatric Alert and oriented times three. Coherent speech. Verbalizes understanding of our discussions today. Laboratory:Test performed on May 01, 2020 14:20 Sodium 140 mmol/L Potassium 4.1 mmol/L Chloride 102 mmol/L CO2 28 mmol/L Anion Gap 14.1 BUN 8 mg/dL Creatinine 0.6 mg/dL Cr Clearance (Est) 202.8200 mL/min eGFR 104.6 mL/min Glucose 116 mg/dL Calcium 9.4 mg/dL Protein, Total 7.3 g/dL Albumin 4.3 g/dL Globulin 3.0 g/dL Bilirubin, Total 0.2 mg/dL ALT (SGPT) 12 U/L AST (SGOT) 15 U/L Alkaline Phosphatase 107 IU/L WBC 3.7 10 3/uL RBC 4.20 10 6/uL HGB 12.0 g/dL HCT 37.6 % MCV 89.5 fL MCH 28.6 pg MCHC 31.9 g/dL RDW 12.9 % Platelet Count 323 10 3/cmm MPV 9.6 fL Neutrophils 1.6 10 3/uL Lymphocytes 1.0 10 3/uL Monocytes 0.8 10 3/uL Eosinophils 0.0 10 3/uL Basophils 0.1 10 3/uL Neutrophil % 48.4 % Lymphocyte % 26.2 % Monocyte % 22.9 % Eosinophil % 0.3 % Basophils % 2.2 % NRBC % 1.1 % CBC Slide Review Slide Review Perform MANUAL REVIEW AGREES WITH AUTOMATED DIFF Impression: Invasive ductal carcinoma status post right breast wide excisional lumpectomy done on 02/09/2019 final pathology report showed invasive ductal carcinoma 5.5 x 4.5 x 3.5 cm, focally extends to the inked posterior margin, extensive ductal carcinoma in situ with focal apocrine features, high nuclear grade. Followed by reexcision of often involved margin on 02/24/2020 with clear margins pT3 and 1 sentinel lymph node was examined showed no evidence of metastatic disease pNo stage IIB, ER/IL/HER-2/cristobal negative with high Ki-67 e.g. 38%. chronic right shoulder pain due to rotator cuff Dr Landeros discussed with Mrs Fermin her disease status. She has locally advanced disease e.g. T3 lesion, status post wide excision of right breast lumpectomy/partial mastectomy with clear surgical margins and 1 sentinel lymph node was examined showed no evidence of metastatic disease, clinical stage IIB. Breast cancer prognostic profiling showed triple negative disease e.g. ER/IL/HER-2/cristobal negative. Being triple negative and locally advanced disease, patient is a candidate for adjuvant chemotherapy, as per N [facility] guidelines, we'll consider dose dense Adriamycin Cytoxan e.g. every 2 weeks ???4 with Neulasta support to prevent chemotherapy-induced neutropenia. Followed by weekly Taxol ???12, followed by postlumpectomy radiation therapy. As discussed previously she had significant hyperglycemia, anxiety, insomnia and palpitations with an inadvertently taken steroid premed prior to her chemotherapy today. I do feel that she will not tolerate the steroids and would like to pursue obtaining Abraxane for her. She has now completed 2 cycles of Adriamycin Cytoxan. She has experienced expected side effects but overall has tolerated it well. She is completed 2 cycles of Adriamycin Cytoxan and has tolerated with expected side effects. She is tolerated it well overall. Plan: 1. Proceed with cycle 3 Adriamycin/Cytoxan this is day 1. 2. Continue Neulasta support due to day 8 ANC of 700 with cycle 1. 3. Labs from today were reviewed in detail and discussed with Mrs. Fermin and a copy was given to her. WBC 83.7, hemoglobin 12.0, platelets 389,000 ANC is 5500. 4. Venogram of left upper extremity as scheduled for evaluation of unilateral edema. Continue Xarelto for unilateral upper extremity edema. Doppler was negative for clot but the swellling did resolve with the addition of Xarelto. 6. We will see her back in 2 weeks for cycle 4 of 4 Adriamycin Cytoxan. 7. We will refill her hydrocodone 08/19/2025 1 or 2 every 4-6 as needed pain. She has been having some bone pain due to the Neulasta. She also had the left arm pain due to the additional swelling. The swelling has greatly improved but she still has some aching at times from the arm. She also continues to have chronic pain in the right shoulder rotator cuff. She states the pain is gotten worse which I suspect is due to the Neulasta. Her range of motion is still about the same-which is limited. 8. It has been opted to change her 12 weekd of taxane to weekly Abraxane given that she had significant hyperglycemia last week as she inadvertently took her steroid premedication for the Adriamycin/Cytoxan. Her random glucose today was 83 compared to 282 last week when she took the steroids. She also developed insomnia anxiety and palpitations with the steroids. Dr. Landeros has recommended pursuing the Abraxane and Mrs. Fermin agrees. 9. Mrs. Serrano was instructed to contact us in the interim should questions or problems arise. Signed By: Ghada Cao-, [facility] Andrei Landeros MD <<Signature on File>>
[2020-05-09] MEDS: alteplase 1 mg/mL SDV 2 mL 2 MG IV (10:21)
[2020-05-09 11:14] LABS: Basophils % 1.8 %; Hematocrit 34.3 % (37.0-47.0); Hemoglobin 10.8 g/dL (11.5-15.3); Lymphocytes # 0.4 10^3/uL (0.8-4.8); Mean Corpuscular HGB Conc 31.5 g/dL (30.0-36.0); Mean Corpuscular Hemoglobin 28.1 pg (28.0-34.0); Mean Corpuscular Volume 89.1 fL (81-99); Mean Platelet Volume 11.2 fL (7.4-10.4); Monocytes # 0.2 10^3/uL (0.2-0.9); Monocytes % 9.5 %; Neutrophils # 1.4 10^3/uL (1.8-7.7); Neutrophils % 64.3 %; Nucleated Red Blood Cells % 0 %; Platelet Count 107 10^3/cmm (130-400); Red Blood Count 3.85 10^6/uL (4.1-5.3); Red Cell Distribution Width 12.7 % (12.1-15.1); White Blood Count 2.2 10^3/uL (4.0-10.0)
[2020-05-09 11:27] LABS: Alanine Aminotransferase 11 U/L (0-33); Albumin Level 4.1 g/dL (3.5-5.2); Alkaline Phosphatase 134 IU/L (35-105); Aspartate Amino Transferase 13 U/L (0-32); Blood Urea Nitrogen 13 mg/dL (6-20); Calcium 9.2 mg/dL (8.5-10.5); Carbon Dioxide 26 mmol/L (22-29); Chloride 99 mmol/L (98-107); Globulin 2.6 g/dL (1.3-4.6); Glomerular Filtration Rate 104.6 mL/min (90-130); Glucose 105 mg/dL (65-115); Osmolality Calculated 277 mOsm/kg (285-295); Sodium 135 mmol/L (136-145); Total Bilirubin 0.4 mg/dL (0.15-1.2); Total Protein 6.7 g/dL (6.6-8.7)
[2020-05-09 11:56] LABS: Slide Review Slide Review Perform
[2020-05-15] MEDS: alteplase 1 mg/mL SDV 2 mL 2 MG IV (10:25)
[2020-05-15 11:12] LABS: Basophils # 0.1 10^3/uL (0.0-0.1); Basophils % 1.8 %; Eosinophils % 0.3 %; Hematocrit 35.1 % (37.0-47.0); Hemoglobin 11.2 g/dL (11.5-15.3); Lymphocytes # 0.7 10^3/uL (0.8-4.8); Lymphocytes % 20.2 %; Mean Corpuscular HGB Conc 31.9 g/dL (30.0-36.0); Mean Corpuscular Hemoglobin 28.7 pg (28.0-34.0); Mean Platelet Volume 9.6 fL (7.4-10.4); Monocytes # 0.8 10^3/uL (0.2-0.9); Monocytes % 25.4 %; Neutrophils # 1.5 10^3/uL (1.8-7.7); Neutrophils % 45.7 %; Nucleated Red Blood Cells % 0 %; Platelet Count 261 10^3/cmm (130-400); Red Cell Distribution Width 13.7 % (12.1-15.1); White Blood Count 3.3 10^3/uL (4.0-10.0)
[2020-05-15 11:53] LABS: Slide Review Slide Review Perform
[2020-05-15 12:09] LABS: Alanine Aminotransferase 18 U/L (0-33); Albumin Level 4.1 g/dL (3.5-5.2); Alkaline Phosphatase 101 IU/L (35-105); Anion Gap 15.1 (5-19); Aspartate Amino Transferase 17 U/L (0-32); Blood Urea Nitrogen 7 mg/dL (6-20); Calcium 9.2 mg/dL (8.5-10.5); Carbon Dioxide 27 mmol/L (22-29); Chloride 101 mmol/L (98-107); Globulin 2.6 g/dL (1.3-4.6); Glomerular Filtration Rate 104.6 mL/min (90-130); Glucose 96 mg/dL (65-115); Osmolality Calculated 284 mOsm/kg (285-295); Potassium 4.1 mmol/L (3.5-5.1); Sodium 139 mmol/L (136-145); Total Bilirubin 0.2 mg/dL (0.15-1.2); Total Protein 6.7 g/dL (6.6-8.7)
[2020-05-16 08:58] LABS: Basophils # 0.1 10^3/uL (0.0-0.1); Basophils % 1.9 %; Eosinophils % 0.4 %; Hematocrit 37.1 % (37.0-47.0); Hemoglobin 11.8 g/dL (11.5-15.3); Lymphocytes # 0.7 10^3/uL (0.8-4.8); Lymphocytes % 15.6 %; Mean Corpuscular HGB Conc 31.8 g/dL (30.0-36.0); Mean Corpuscular Hemoglobin 28.5 pg (28.0-34.0); Mean Corpuscular Volume 89.6 fL (81-99); Mean Platelet Volume 9.6 fL (7.4-10.4); Monocytes # 0.9 10^3/uL (0.2-0.9); Monocytes % 19.4 %; Neutrophils # 2.6 10^3/uL (1.8-7.7); Neutrophils % 56.9 %; Nucleated Red Blood Cells % 0.6 %; Platelet Count 294 10^3/cmm (130-400); Red Blood Count 4.14 10^6/uL (4.1-5.3); Red Cell Distribution Width 13.7 % (12.1-15.1); White Blood Count 4.6 10^3/uL (4.0-10.0)
--- NOTE | 2020-05-16 10:13 | ONC FU_ITS ---
Dr. Landeros follow up note Patient: Lisbeth Fermin Unit #: [id number]: 1965 Dicatated By: Andrei Landeros M.D.Date of Visit:May 16, 2020 Onc Med Follow-up/Prog Note History of Present Illness: Mrs. Fermin is a 54-year-old female, with a history of right breast mass. In November 2019 she noted a mass in her right breast. As it did not go away, she underwent mammogram which showed a mass in her right breast. She underwent ultrasound of right breast which showed a mass at 10-12:00, large irregular hypoechoic solid lesion taller than wide, measuring 3.8 x 2.1 x 4.9 cm. The mass was highly suspicious for malignancy. She also had an adjacent smaller solid satellite nodules measuring 1.9 x 1.4 x 1.2 cm and 0.9 x 0.5 x 0.6 cm mass. She then underwent ultrasound-guided core needle biopsies on 01/21/2020. The pathology reported invasive ductal carcinoma of breast. Positive in 5 out of 5 core biopsies. ER/GA negative e.g. (less than 1% although in the report GA was mentioned positive but it was less than 1% and went confirmed with pathology, Dr. Mckinnon said it should be negative). HER-2/cristobal negative as well. Mrs Fermin underwent right breast wide excisional lumpectomy on 02/10/2020. The final pathology report confirmed invasive tumor 5.5 x 4.5 x 3.5 cm. focally extends to the inked posterior margin; remaining margins free of invasive carcinoma. Extensive ductal carcinoma in situ with focal apocrine features, high nuclear grade, carcinoma in situ extends to within 1 mm of inked inferior margin, and remaining margins were free., Complex sclerosing lesion, extensive sclerosing adenosis, fibrocystic changes, cystic and papillary apocrine metaplasia. One sentinel lymph node was removed and examined showed no evidence of metastatic disease. She underwent reexcision of positive surgical margin on 02/24/2020 and obtain clear surgical margins. Mrs Fermin denies any history of bony pains except chronic right shoulder rotator cuff and history of right knee replacement. History of smoking, occasional alcohol use. Menarche at age 15, first at age 26, no history of hormone use. Last menstrual period was in December 2018. recommended treatment of her triple negative, sentinel node negative breast cancer with Adriamycin Cytoxan dose dense for 4 cycles followed by Taxane weekly for 12 weeks. She began her first cycle of chemotherapy on April 04, 2020. We have planned to exchange weekly Taxole with weekly Abraxane due to significant side effects with steroids. She had significant hyperglycemia, insomnia, worsening anxiety, and mood swings. That was with 1 dose that was taken in preparation for her first chemotherapy with Adriamycin and Cytoxan. Came for follow-up, denies any specific complaint except with last cycle chemotherapy, she developed severe nausea and queasiness which was somewhat controlled with Zofran and low-dose Xanax. No fever chills, no mouth sores but poor taste, no jaundice no diarrhea or constipation, tolerating dose dense AC well otherwise Medications: Acid Control Maximum Strength 1 Tablet (of 20 mg) Oral at bedtime PRN, ALPRAZolam 1 (0.5 mg) Tablet Oral t.i.d. PRN, Claritin 1 Tablet (of 10 mg) Oral at bedtime, Cymbalta 1 (30 mg) Capsule Delayed Release Particles Oral daily, HYDROcodone-Acetaminophen 1 Tablet (of 10-325 mg) Oral q 6 hours PRN, Lidocaine-Prilocaine 1 (2.5-2.5 %) Cream Topical daily PRN, LORazepam 0.5 - 1 Tablet (of 1 mg) Oral t.i.d. PRN, Meloxicam 1 (15 mg) Tablet Oral b.i.d. PRN, Methocarbamol 1 - 2 Tablet (of 750 mg) Oral t.i.d. PRN, Prochlorperazine Maleate 1 Tablet (of 10 mg) Oral q 4 hours PRN, Xarelto 1 Tablet (of 15 mg) Oral b.i.d. Allergies: Latex and Penicillins. Review of Systems: Constitutional - Appetite is good and weight is stable. No fever, night sweats, or hot flashes. Energy level is fair, ENMT - No sinus congestion/drainage. No mouth sores. No sore throat or difficulty swallowing, Hematologic/Lymphatic - No abnormal bruising or bleeding, Respiratory - No shortness of breath. No cough. No pleuritic pain or hemoptysis, Cardiovascular - No angina pain. No palpitations, Gastrointestinal - No nausea or vomiting. Positive for heartburn, no acid reflux. No diarrhea or constipation. No blood in the stool or black stools, Genitourinary (F) - No dysuria or hematuria. No urinary frequency. No urgency or incontinence, Musculoskeletal - Positive for joint pain, Neurologic - No headache or dizziness. No numbness or tingling. No other focal neurologic symptoms, Psychiatric - Positive for anxiety, no depression. Positive for occasional bouts of insomnia. Vital Signs: Vitals are not available for this patient. Performance Status: 0 - Fully active, able to carry on all predisease activities without restrictions. (ECOG) Physical Examination: Respiratory - Lungs are clear, Cardiovascular - Regular rate and rhythm of heart, Gastrointestinal - Abdomen soft, bowel sounds present, Extremities - No swelling or rash, No mouth sores, no thrush or jaundice. Lab/Imaging: Test performed on May 01, 2020 14:20 Sodium 140 mmol/L Potassium 4.1 mmol/L Chloride 102 mmol/L CO2 28 mmol/L Anion Gap 14.1 BUN 8 mg/dL Creatinine 0.6 mg/dL Cr Clearance (Est) 202.8200 mL/min eGFR 104.6 mL/min Glucose 116 mg/dL Calcium 9.4 mg/dL Protein, Total 7.3 g/dL Albumin 4.3 g/dL Globulin 3.0 g/dL Bilirubin, Total 0.2 mg/dL ALT (SGPT) 12 U/L AST (SGOT) 15 U/L Alkaline Phosphatase 107 IU/L WBC 3.7 10 3/uL RBC 4.20 10 6/uL HGB 12.0 g/dL HCT 37.6 % MCV 89.5 fL MCH 28.6 pg MCHC 31.9 g/dL RDW 12.9 % Platelet Count 323 10 3/cmm MPV 9.6 fL Neutrophils 1.6 10 3/uL Lymphocytes 1.0 10 3/uL Monocytes 0.8 10 3/uL Eosinophils 0.0 10 3/uL Basophils 0.1 10 3/uL Neutrophil % 48.4 % Lymphocyte % 26.2 % Monocyte % 22.9 % Eosinophil % 0.3 % Basophils % 2.2 % NRBC % 1.1 % CBC Slide Review Slide Review Perform MANUAL REVIEW AGREES WITH AUTOMATED DIFF Impression: Invasive ductal carcinoma status post right breast wide excisional lumpectomy done on 02/09/2019 final pathology report showed invasive ductal carcinoma 5.5 x 4.5 x 3.5 cm, focally extends to the inked posterior margin, extensive ductal carcinoma in situ with focal apocrine features, high nuclear grade. Followed by reexcision of often involved margin on 02/24/2020 with clear margins pT3 and 1 sentinel lymph node was examined showed no evidence of metastatic disease pNo stage IIB, ER/GA/HER-2/cristobal negative with high Ki-67 e.g. 38%. chronic right shoulder pain due to rotator cuff discussed with Mrs Fermin her disease status. She has locally advanced disease e.g. T3 lesion, status post wide excision of right breast lumpectomy/partial mastectomy with clear surgical margins and 1 sentinel lymph node was examined showed no evidence of metastatic disease, clinical stage IIB. Breast cancer prognostic profiling showed triple negative disease e.g. ER/GA/HER-2/cristobal negative. Being triple negative and locally advanced disease, patient is a candidate for adjuvant chemotherapy, as per N [facility] guidelines, we'll consider dose dense Adriamycin Cytoxan e.g. every 2 weeks ???4 with Neulasta support to prevent chemotherapy-induced neutropenia. Followed by weekly Taxol ???12, followed by postlumpectomy radiation therapy. As discussed previously she had significant hyperglycemia, anxiety, insomnia and palpitations with an inadvertently taken steroid premed prior to her chemotherapy today. I do feel that she will not tolerate the steroids and would like to pursue obtaining Abraxane for her. She has now completed 2 cycles of Adriamycin Cytoxan. She has experienced expected side effects but overall has tolerated it well. She is completed 2 cycles of Adriamycin Cytoxan and has tolerated with expected side effects. She is tolerated it well overall. Plan: .Discussed with patient regarding her labs checked on May 15, 2020 white blood count 3.3, hemoglobin 11.2 g hematocrit 35.1 platelets 261,000 ANC 1500 CMP within normal limits Clinically, patient is doing well tolerating dose dense Adriamycin Cytoxan with Neulasta support, well but with expected side effects e.g. progressive neutropenia and nausea, alopecia. Her CBC was checked yesterday which showed leukopenia/neutropenia recovery, so we will proceed with final and cycle #4 with dose dense Adriamycin/Cytoxan with Neulasta support and then check her CBC in a week. Patient was advised to avoid sick people and in case any fevers she should start taking Levaquin 500 mg p.o. daily and then she will return to clinic in 2 weeks with CBC CMP and will discuss about weekly Abraxane as patient has intolerance to steroids, which is required as a premedication for Taxol. As far as nausea is concerned, we will increase her Xanax dose to 1 mg every 6 hours and she will take Zofran 8 mg every 8 hour as needed for nausea. Patient has PTSD and she used to take Xanax 1 mg every 6 hour until her PMD reduced dose 2.5 mg 3 times a day, as per patient is not enough to control her anxiety especially while going through adjuvant chemotherapy. Thus we will increase her Xanax dose to 1 mg p.o. every 6 hours She also has torn rotator cuff right shoulder and was evaluated by Dr. Ortega prior to she was diagnosed with breast cancer, definite management was postponed because of priority with breast cancer treatment and she used to take Percocet 10/325 q. 8 to 6-hour but her PMD changed to hydrocodone, patient said is not helping her so we will give her prescription for Percocet 10/325 and she will take it as directed and it might help her nausea/anxiety too. We will repeat her CBC in 1 week and she will return to clinic in 2 weeks to discuss about adjuvant chemotherapy with Abraxane as mentioned above. Signed By: Andrei Landeros M.D. <<Signature on File>>
[2020-05-16] MEDS: pegfilgrastim 6 mg/0.6 mL Kit (onpro) SUBCUT (13:20)
== END 2020-05-16 23:59 | disposition home or self-care (01) ==
LOC: ONCMED 06:46
PROVIDERS: Nurse Practitioner; PCP Internal Medicine; Visit Provider Internal Medicine Hematology & Oncology
DX: Z51.12 Encounter for antineoplastic immunotherapy (principal); Z51.11 Encounter for antineoplastic chemotherapy; C50.811 Malignant neoplasm of overlapping sites of right female breast; Z17.1 Estrogen receptor negative status [ER-]; F41.9 Anxiety disorder, unspecified; F32.9 Major depressive disorder, single episode, unspecified; G43.909 Migraine, unspecified, not intractable, without status migrainosus; Z79.818 Long term (current) use of other agents affecting estrogen receptors and estrogen levels
CPT/HCPCS: 36591; 36593; 80053; 85025; 96367; 96372; 96374; 96411; 96413; 96415; 96417; 99214; J1100; J1200; J1453; J2469; J2505; J2997; J7040; J7050; J9000; J9070

== ENCOUNTER 2020-06-13 06:47 | Outpatient (RCR) | payer MEDICAID, SELFPAY ==
[2020-05-23] MEDS: alteplase 1 mg/mL SDV 2 mL 2 MG IV (10:50)
[2020-05-23 12:00] LABS: Basophils # 0.1 10^3/uL (0.0-0.1); Basophils % 2.8 %; Eosinophils % 0.6 %; Hematocrit 31.6 % (37.0-47.0); Lymphocytes # 0.3 10^3/uL (0.8-4.8); Lymphocytes % 16.1 %; Mean Corpuscular HGB Conc 31.6 g/dL (30.0-36.0); Mean Corpuscular Hemoglobin 28.2 pg (28.0-34.0); Mean Corpuscular Volume 89.3 fL (81-99); Mean Platelet Volume 9.9 fL (7.4-10.4); Monocytes # 0.2 10^3/uL (0.2-0.9); Neutrophils # 1.2 10^3/uL (1.8-7.7); Neutrophils % 67.2 %; Nucleated Red Blood Cells % 0 %; Platelet Count 167 10^3/cmm (130-400); Red Blood Count 3.54 10^6/uL (4.1-5.3); Red Cell Distribution Width 13.2 % (12.1-15.1); White Blood Count 1.8 10^3/uL (4.0-10.0)
[2020-05-29 10:26] LABS: Basophils # 0.1 10^3/uL (0.0-0.1); Basophils % 1.3 %; Eosinophils % 0.3 %; Hematocrit 33.7 % (37.0-47.0); Hemoglobin 10.8 g/dL (11.5-15.3); Lymphocytes # 0.5 10^3/uL (0.8-4.8); Lymphocytes % 12.7 %; Mean Corpuscular Hemoglobin 29.2 pg (28.0-34.0); Mean Corpuscular Volume 91.1 fL (81-99); Mean Platelet Volume 9.6 fL (7.4-10.4); Monocytes # 0.8 10^3/uL (0.2-0.9); Monocytes % 21.4 %; Neutrophils # 2.16 10^3/uL (1.8-7.7); Neutrophils % 55.8 %; Platelet Count 251 10^3/cmm (130-400); Red Cell Distribution Width 14.6 % (12.1-15.1); White Blood Count 3.9 10^3/uL (4.0-10.0)
[2020-05-29 10:34] LABS: Alanine Aminotransferase 14 U/L (0-33); Albumin Level 4.2 g/dL (3.5-5.2); Alkaline Phosphatase 107 IU/L (35-105); Anion Gap 13.2 (5-19); Aspartate Amino Transferase 20 U/L (0-32); Blood Urea Nitrogen 6 mg/dL (6-20); Calcium 9.4 mg/dL (8.5-10.5); Carbon Dioxide 27 mmol/L (22-29); Chloride 103 mmol/L (98-107); Globulin 2.3 g/dL (1.3-4.6); Glucose 92 mg/dL (65-115); Osmolality Calculated 283 mOsm/kg (285-295); Potassium 4.2 mmol/L (3.5-5.1); Sodium 139 mmol/L (136-145); Total Bilirubin 0.3 mg/dL (0.15-1.2); Total Protein 6.5 g/dL (6.6-8.7)
[2020-05-29 11:36] LABS: Slide Review Slide Review Perform
--- NOTE | 2020-06-03 21:58 | ONC FU_ITS ---
[facility] Patient Note Patient: Lisbeth Fermin Unit #: [id number]: 1965 Dictated By: Ghada CaoDate of Visit: May 30, 2020 Onc MED Follow-Up/Prog Note Chief Complaint: Right breast cancer History of Present Illness: Mrs. Fermin is a 54-year-old female with a history of right breast mass. In November 2019 she noted a mass in her right breast. As it did not go away, she underwent mammogram which showed a mass in her right breast. She underwent ultrasound of right breast which showed a mass at 10-12:00, large irregular hypoechoic solid lesion taller than wide, measuring 3.8 x 2.1 x 4.9 cm. The mass was highly suspicious for malignancy. She also had an adjacent smaller solid satellite nodules measuring 1.9 x 1.4 x 1.2 cm and 0.9 x 0.5 x 0.6 cm mass. She then underwent ultrasound-guided core needle biopsies on 01/21/2020. The pathology reported invasive ductal carcinoma of breast. Positive in 5 out of 5 core biopsies. ER/[place] negative e.g. (less than 1% although in the report [place] was mentioned positive but it was less than 1% and went confirmed with pathology, Dr. Mckinnon said it should be negative). HER-2/cristobal negative as well. Mrs Fermin underwent right breast wide excisional lumpectomy on 02/10/2020. The final pathology report confirmed invasive tumor 5.5 x 4.5 x 3.5 cm. focally extends to the inked posterior margin; remaining margins free of invasive carcinoma. Extensive ductal carcinoma in situ with focal apocrine features, high nuclear grade, carcinoma in situ extends to within 1 mm of inked inferior margin, and remaining margins were free., Complex sclerosing lesion, extensive sclerosing adenosis, fibrocystic changes, cystic and papillary apocrine metaplasia. One sentinel lymph node was removed and examined showed no evidence of metastatic disease. She underwent reexcision of positive surgical margin on 02/24/2020 and obtain clear surgical margins. Mrs Fermin denies any history of bony pains except chronic right shoulder rotator cuff and history of right knee replacement. History of smoking, occasional alcohol use. Menarche at age 15, first at age 26, no history of hormone use. Last menstrual period was in December 2018. Mrs. Fermin was evaluated with Dr. Landeros. He recommended treatment of her triple negative, sentinel node negative breast cancer with Adriamycin Cytoxan dose dense for 4 cycles followed by Taxotere for 12 weeks. She began her first cycle of chemotherapy on April 04, 2020. We have planned to exchange weekly Taxotere with weekly Abraxane due to significant side effects with steroids. She had significant hyperglycemia, insomnia, worsening anxiety, and mood swings. That was with 1 dose that was intimately taken in preparation for her first chemotherapy with Adriamycin and Cytoxan. Ms. Fermin is here today for follow-up. She has completed 4 cycles of dose dense Adriamycin Cytoxan. She is here today for followup and consideration of week 1 of 12 Abraxane. She was intolerant to oral steroids (she inadvertently took dexamethasone with her first cycle of AC) in that she had significant hyperglycemia, severe mood swings, insomia and severe anxiety on the day of and day after she took them. Ms. Fermin states overall she is doing pretty good right now. She states the last 2 treatments that have been kicked my butt . She is just having a lot more fatigue. She states the nausea has not been a problem. She denies any new pain. She denies fever or chills. She is had no cough, sore throat or mouth sores. She states overall she thinks she is done well but has just been more draggy the last 2 treatments. She states she feels pretty good today however. Her ECOG is 1. She denies any diarrhea or constipation. She has had no lower extremity edema. Past Medical History: Anxiety Arthritis Depression History of right breast cancer Migraine headaches Past Surgical History: Breast biopsy Cervical fusion Left knee arthroscopy Right breast lumpectomy Right foot tendon avulsion Right total knee replacement Allergies: Latex and Penicillins. Medications: Acid Control Maximum Strength 1 Tablet (of 20 mg) Oral at bedtime PRN ALPRAZolam 1 (0.5 mg) Tablet Oral t.i.d. PRN Claritin 1 Tablet (of 10 mg) Oral at bedtime Cymbalta 1 (30 mg) Capsule Delayed Release Particles Oral daily HYDROcodone-Acetaminophen 1 Tablet (of 10-325 mg) Oral q 6 hours PRN Lidocaine-Prilocaine 1 (2.5-2.5 %) Cream Topical daily PRN LORazepam 0.5 - 1 Tablet (of 1 mg) Oral t.i.d. PRN Meloxicam 1 (15 mg) Tablet Oral b.i.d. PRN Methocarbamol 1 - 2 Tablet (of 750 mg) Oral t.i.d. PRN Prochlorperazine Maleate 1 Tablet (of 10 mg) Oral q 4 hours PRN Xarelto 1 Tablet (of 15 mg) Oral b.i.d. Family History: Ms. Fermin's mother is alive: colon cancer. Ms. Fermin's father at age 71: colon cancer. 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 Ms. Fermin quit smoking 3 years ago but had smoked 1.0 pack/day for 25 years. She drinks occasionally. She consumes 2 days/week. Ms. Fermin reports the following support systems: lives with spouse, significant other, family, or friends, lives in own house, supportive family/friends willing to assist with needs, and adequate transportation available for expected visits. Her diet consists of regular meals. She indicates her activity level as: regular exercise. Review Of Symptoms: Constitutional Denies fevers, chills, night sweats, excessive fatigue or weight loss. Allergic/Immunologic seasonal allergies-cottonwood trees. Eyes Denies significant visual changes. No diplopia. No amaurosis. ENMT Denies changes in hearing, sore throat, mouth sores, difficulty or changes in swallowing ability, and/or sinus drainage. Endocrine No diabetes, thyroid disease or hormone replacement. Denies hot flashes or night sweats. Hematologic/Lymphatic Denies easy bruising or bleeding. The patient denies any tender or palpable lymph nodes. Breasts no new concerns Respiratory Denies dyspnea on exertion, chest pain, cough or hemoptysis. Denies orthopnea. Cardiovascular Denies anginal chest pain, palpitations or orthopnea. Gastrointestinal Denies nausea, diarrhea, GI bleeding, or constipation. Denies change in bowel habits and/or stool color, no heartburn or early satiety. Genitourinary (F) No hematuria, hesitancy, incontinence, vaginal bleeding, discharge or other problems with urination. Musculoskeletal Denies joint pain, swelling or redness. No decreased range of motion. Integumentary Denies chronic rashes, inflammation, ulcerations or skin changes. Neurologic Denies headache, blurred vision, and no areas of focal weakness or numbness. Normal gait. No sensory problems. Psychiatric Denies insomnia, depression, monae or mood swings. Vital Signs: Performed on May 30, 2020 11:40 Height - 72.00 in Weight - 252.6 lbs (LOW) BSA - 2.35 sq.m BMI - 34.26 (HIGH) Temperature - 97.2 F (LOW) Pulse - 104 /min (HIGH) Respiration - 18 /min BP - 138/86 mm(hg) O2 Sat - 96 % Pain - 6,1 - No physically strenuous activity, but ambulatory and able to carry out light or sedentary work (e.g. office work, light house work). (ECOG) Physical Examination: Constitutional Alert, oriented, no acute distress. Skin pink, warm and dry. Head Normocephalic; atraumatic. Eyes Conjunctivae and sclerae are clear and without icterus. Pupils are reactive and equal. Neck Supple without masses or thyromegaly. No jugular venous distension. Hematologic/Lymphatic No petechiae or purpura. No tender or palpable lymph nodes in the cervical or supraclavicular areas. Respiratory Lungs are clear to auscultation without rhonchi or wheezing. Cardiovascular Regular rate and rhythm of heart without murmurs,clicks, gallops or rubs. Chest Left venous access insertion site is unremarkable. Abdomen Non-tender, non-distended, no masses or ascites. No guarding or rebound tenderness. No pulsatile masses. Back/Spine Non-tender to palpation. Extremities No visible deformities, no cyanosis, clubbing or edema. Musculoskeletal No tenderness or swelling, normal range of motion without obvious weakness. Integumentary No rashes or lesions. Neurologic No sensory or motor deficits, normal cerebellar function, normal gait. Psychiatric Alert and oriented times three. Coherent speech. Verbalizes understanding of our discussions today. Laboratory: see below and see flow sheet Impression: Invasive ductal carcinoma status post right breast wide excisional lumpectomy done on 02/09/2019 final pathology report showed invasive ductal carcinoma 5.5 x 4.5 x 3.5 cm, focally extends to the inked posterior margin, extensive ductal carcinoma in situ with focal apocrine features, high nuclear grade. Followed by reexcision of often involved margin on 02/24/2020 with clear margins pT3 and 1 sentinel lymph node was examined showed no evidence of metastatic disease pNo stage IIB, ER/[place]/HER-2/cristobal negative with high Ki-67 e.g. 38%. chronic right shoulder pain due to rotator cuff Dr Landeros discussed with Mrs Mazaney her disease status. She has locally advanced disease e.g. T3 lesion, status post wide excision of right breast lumpectomy/partial mastectomy with clear surgical margins and 1 sentinel lymph node was examined showed no evidence of metastatic disease, clinical stage IIB. Breast cancer prognostic profiling showed triple negative disease e.g. ER/[place]/HER-2/cristobal negative. Being triple negative and locally advanced disease, patient is a candidate for adjuvant chemotherapy, as per [place] CCN guidelines, we'll consider dose dense Adriamycin Cytoxan e.g. every 2 weeks ???4 with Neulasta support to prevent chemotherapy-induced neutropenia. Followed by weekly Taxol ???12, followed by postlumpectomy radiation therapy. As discussed previously she had significant hyperglycemia, anxiety, insomnia and palpitations with an inadvertently taken steroid premed prior to her chemotherapy today. I do feel that she will not tolerate the steroids and did pursue obtaining Abraxane for her. She has now completed 4 cycles of Adriamycin Cytoxan. She has experienced expected side effects but overall has tolerated it well. Plan: 1. Proceed with week1/12 of Abraxane. 2. Continue previous premedications as her nausea was appropriately controlled. 3. Labs from today were reviewed in detail and discussed with Mrs. Fermin and a copy was given to her. WBC 3.9 , hemoglobin 10.8, platelets 251,000 ANC is 2200. 4. Venogram of left upper extremity was obtained for evaluation of unilateral edema. Continue Xarelto for unilateral upper extremity edema. Doppler was negative for clot but the swellling did resolve with the addition of Xarelto. 6. We will see her back in 1 week for week 2 of 12 Abraxane. 7. It was opted to change her 12 weeks of taxane to weekly Abraxane given that she had significant hyperglycemia last week as she inadvertently took her steroid premedication for the Adriamycin/Cytoxan. Her random glucose today was 92 compared to 282 when she took the steroids. She also developed insomnia, anxiety and palpitations with the steroids. Dr. Landeros has recommended pursuing the Abraxane and Mrs. Fermin agrees. 9. Mrs. Serrano was instructed to contact us in the interim should questions or problems arise. Signed By: Ghada Cao-, AOCNP Andrei Landeros MD <<Signature on File>>
[2020-06-05] MEDS: alteplase 1 mg/mL SDV 2 mL 2 MG IV (10:15)
[2020-06-05 10:56] LABS: Basophils # 0.1 10^3/uL (0.0-0.1); Basophils % 1.2 %; Hematocrit 30.6 % (37.0-47.0); Hemoglobin 9.8 g/dL (11.5-15.3); Lymphocytes # 0.4 10^3/uL (0.8-4.8); Mean Corpuscular Volume 90.5 fL (81-99); Mean Platelet Volume 9.6 fL (7.4-10.4); Monocytes # 0.6 10^3/uL (0.2-0.9); Monocytes % 10.6 %; Neutrophils # 4.78 10^3/uL (1.8-7.7); Nucleated Red Blood Cells % 0 %; Platelet Count 401 10^3/cmm (130-400); Red Blood Count 3.38 10^6/uL (4.1-5.3); Red Cell Distribution Width 14.6 % (12.1-15.1)
[2020-06-05 11:21] LABS: Alanine Aminotransferase 22 U/L (0-33); Albumin Level 3.8 g/dL (3.5-5.2); Alkaline Phosphatase 103 IU/L (35-105); Anion Gap 12.2 (5-19); Aspartate Amino Transferase 26 U/L (0-32); Blood Urea Nitrogen 10 mg/dL (6-20); Calcium 8.4 mg/dL (8.5-10.5); Carbon Dioxide 27 mmol/L (22-29); Chloride 102 mmol/L (98-107); Globulin 2.8 g/dL (1.3-4.6); Glomerular Filtration Rate 104.6 mL/min (90-130); Glucose 105 mg/dL (65-115); Osmolality Calculated 280 mOsm/kg (285-295); Potassium 4.2 mmol/L (3.5-5.1); Sodium 137 mmol/L (136-145); Total Bilirubin 0.3 mg/dL (0.15-1.2); Total Protein 6.6 g/dL (6.6-8.7)
[2020-06-06] MEDS: sodium chloride 0.9% 250 ML 999 ML IV (12:00)
[2020-06-06 14:01] LABS: Ferritin 212 ng/mL (15-150); Iron 28 ug/dL (37-145); Percent Saturation 13.7 % (20-50); Thyroid Stimulating Hormone 1.01 uIU/mL (0.27-4.20); Total Iron Binding Capacity 204 mcg/dl; Unsaturated Iron Binding 176 ug/dL (112-347)
[2020-06-06 14:38] LABS: Vitamin B12 > 2000 pg/mL (232-1245)
--- NOTE | 2020-06-06 14:51 | ONC FU_ITS ---
[facility] Patient Note Patient: Lisbeth Fermin Unit #: [id number]: 1965 Dictated By: Ghada CaoDate of Visit: Jun 06, 2020 Onc MED Follow-Up/Prog Note Chief Complaint: Right breast cancer History of Present Illness: Mrs. Fermin is a 54-year-old female with a history of right breast mass. In November 2019 she noted a mass in her right breast. As it did not go away, she underwent mammogram which showed a mass in her right breast. She underwent ultrasound of right breast which showed a mass at 10-12:00, large irregular hypoechoic solid lesion taller than wide, measuring 3.8 x 2.1 x 4.9 cm. The mass was highly suspicious for malignancy. She also had an adjacent smaller solid satellite nodules measuring 1.9 x 1.4 x 1.2 cm and 0.9 x 0.5 x 0.6 cm mass. She then underwent ultrasound-guided core needle biopsies on 01/21/2020. The pathology reported invasive ductal carcinoma of breast. Positive in 5 out of 5 core biopsies. ER/UT negative e.g. (less than 1% although in the report UT was mentioned positive but it was less than 1% and went confirmed with pathology, Dr. Mckinnon said it should be negative). HER-2/cristobal negative as well. Mrs Fermin underwent right breast wide excisional lumpectomy on 02/10/2020. The final pathology report confirmed invasive tumor 5.5 x 4.5 x 3.5 cm. focally extends to the inked posterior margin; remaining margins free of invasive carcinoma. Extensive ductal carcinoma in situ with focal apocrine features, high nuclear grade, carcinoma in situ extends to within 1 mm of inked inferior margin, and remaining margins were free., Complex sclerosing lesion, extensive sclerosing adenosis, fibrocystic changes, cystic and papillary apocrine metaplasia. One sentinel lymph node was removed and examined showed no evidence of metastatic disease. She underwent reexcision of positive surgical margin on 02/24/2020 and obtain clear surgical margins. Mrs Fermin denies any history of bony pains except chronic right shoulder rotator cuff and history of right knee replacement. History of smoking, occasional alcohol use. Menarche at age 15, first at age 26, no history of hormone use. Last menstrual period was in December 2018. Mrs. Fermin was evaluated with Dr. Landeros. He recommended treatment of her triple negative, sentinel node negative breast cancer with Adriamycin Cytoxan dose dense for 4 cycles followed by Taxotere for 12 weeks. She began her first cycle of chemotherapy on April 04, 2020. We have planned to exchange weekly Taxotere with weekly Abraxane due to significant side effects with steroids. She had significant hyperglycemia, insomnia, worsening anxiety, and mood swings. That was with 1 dose that was intimately taken in preparation for her first chemotherapy with Adriamycin and Cytoxan. Ms. Fermin is here today for follow-up. She has completed 4 cycles of dose dense Adriamycin Cytoxan. She is here today for followup and consideration of week 2 of 12 Abraxane. She was intolerant to oral steroids (she inadvertently took dexamethasone with her first cycle of AC) in that she had significant hyperglycemia, severe mood swings, insomia and severe anxiety on the day of and day after she took them. She states she has had more fatigue this week than previous weeks. It is noted that her Hemoglobin is down 1 g from last week. She also reports that she had one episode of spontaneous vomiting last night. She has had some increase in heartburn but states she had no warning that she just all of a sudden felt like she was throwing up. She denies any headache or vision changes. She is had no further episodes of vomiting. She is had no nausea. She does state that she is having some neuropathy symptoms in her legs and feet. She states it feels like [id number]. She states that her leg goes to sleep and when starts waking back up that is what it feels like intermittently. She states it occurs after she lays down. It was worse after she received Abraxane last week. It is currently subsided but she has noticed it more overall. She states is very manageable and she does not feel she wants interrupt her chemo dosing or schedule at this time. She denies any other discomforts. She denies any fever or chills. She has had no mouth sores, sore throat or difficulty swallowing. She denies any new shortness of breath and denies orthopnea. She is states she has not had any chest pain or palpitations. Her bowels and bladder are normal for her. She is just more frustrated because she is more fatigued. We did discuss that her white count is elevated compared to last week which but did in the normal range. She was encouraged that her counts are starting to come up. I have requested that we check iron studies and B12 as well as TSH for evaluation of her fatigue and anemia. We will let her know the results of these once they are available. She is encouraged to be active but be careful on the sun due to sun sensitivity. For her intermittent heartburn she states she is only taking [id number] medication and is not holding the gastritis as well as it has in the past. She does not recall trying anything prescription lopez. Her ECOG is 1. Past Medical History: Anxiety Arthritis Depression History of right breast cancer Migraine headaches Past Surgical History: Breast biopsy Cervical fusion Left knee arthroscopy Right breast lumpectomy Right foot tendon avulsion Right total knee replacement Allergies: Latex and Penicillins. Medications: Acid Control Maximum Strength 1 Tablet (of 20 mg) Oral at bedtime PRN ALPRAZolam 1 (0.5 mg) Tablet Oral t.i.d. PRN Claritin 1 Tablet (of 10 mg) Oral at bedtime Cymbalta 1 (30 mg) Capsule Delayed Release Particles Oral daily HYDROcodone-Acetaminophen 1 Tablet (of 10-325 mg) Oral q 6 hours PRN Lidocaine-Prilocaine 1 (2.5-2.5 %) Cream Topical daily PRN LORazepam 0.5 - 1 Tablet (of 1 mg) Oral t.i.d. PRN Meloxicam 1 (15 mg) Tablet Oral b.i.d. PRN Methocarbamol 1 - 2 Tablet (of 750 mg) Oral t.i.d. PRN Ondansetron HCl 1 - 2 Tablet (of 4 mg) Oral four times a day PRN Prochlorperazine Maleate 1 Tablet (of 10 mg) Oral q 4 hours PRN Xarelto 1 Tablet (of 15 mg) Oral b.i.d. Family History: Ms. Fermin's mother is alive: colon cancer. Ms. Fermin's father at age 71: colon cancer. 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 Ms. Fermin quit smoking 3 years ago but had smoked 1.0 pack/day for 25 years. She drinks occasionally. She consumes 2 days/week. Ms. Fermin reports the following support systems: lives with spouse, significant other, family, or friends, lives in own house, supportive family/friends willing to assist with needs, and adequate transportation available for expected visits. Her diet consists of regular meals. She indicates her activity level as: regular exercise. Review Of Symptoms: Constitutional Denies fevers, chills, night sweats or weight loss. Has had more fatigue. Draggy overall. Not getting much done . Allergic/Immunologic seasonal allergies-cottonwood trees. Eyes Denies significant visual changes. No diplopia. No amaurosis. ENMT Denies changes in hearing, sore throat, mouth sores, difficulty or changes in swallowing ability, and/or sinus drainage. Hematologic/Lymphatic Denies easy bruising or bleeding. The patient denies any tender or palpable lymph nodes. Breasts no new concerns Respiratory Denies dyspnea on exertion, chest pain, cough or hemoptysis. Denies orthopnea. Cardiovascular Denies anginal chest pain, palpitations or orthopnea. Gastrointestinal Denies nausea, diarrhea, GI bleeding, or constipation. Denies change in bowel habits and/or stool color or early satiety. has had more heartburn and 1 episode of spontaneous emesis without warning. Genitourinary (F) No hematuria, hesitancy, incontinence, vaginal bleeding, discharge or other problems with urination. Musculoskeletal Denies joint pain, swelling or redness. No decreased range of motion. Integumentary Denies chronic rashes, inflammation, ulcerations or skin changes. Neurologic Denies headache, blurred vision, and no areas of focal weakness or numbness. Normal gait. No sensory problems. Psychiatric Denies insomnia, depression, monae or mood swings. Vital Signs: Performed on Jun 06, 2020 11:08 Height - 72.00 in Weight - 251.2 lbs (LOW) BSA - 2.35 sq.m BMI - 34.07 (HIGH) Temperature - 97.9 F (LOW) Pulse - 96 /min Respiration - 18 /min BP - 136/83 mm(hg) O2 Sat - 99 % Pain - 6,1 - No physically strenuous activity, but ambulatory and able to carry out light or sedentary work (e.g. office work, light house work). (ECOG) Physical Examination: Constitutional Alert, oriented, no acute distress. Skin pink, warm and dry. Alopecia. Head Normocephalic; atraumatic. Eyes Conjunctivae and sclerae are clear and without icterus. Pupils are reactive and equal. Neck Supple without masses or thyromegaly. No jugular venous distension. Hematologic/Lymphatic No petechiae or purpura. No tender or palpable lymph nodes in the cervical or supraclavicular areas. Respiratory Lungs are clear to auscultation without rhonchi or wheezing. Cardiovascular Regular rate and rhythm of heart without murmurs,clicks, gallops or rubs. Chest Left venous access insertion site is unremarkable. Abdomen Non-tender, non-distended, no masses or ascites. No guarding or rebound tenderness. No pulsatile masses. Back/Spine Non-tender to palpation. Extremities No visible deformities, no cyanosis, clubbing or edema. Musculoskeletal No tenderness or swelling, normal range of motion without obvious weakness. Integumentary No rashes or lesions. Neurologic No sensory or motor deficits, normal cerebellar function, normal gait. Psychiatric Alert and oriented times three. Coherent speech. Verbalizes understanding of our discussions today. Laboratory:Test performed on Jun 06, 2020 10:35 Ferritin 212 ng/mL Iron 28 mcg/dL TSH 1.01 uIU/mL Iron Binding Capacity (TIBC) 204 mcg/dl % Iron Saturation 13.7 % UIBC 176 mcg/dL Test performed on May 16, 2020 08:32 WBC 4.6 10 3/uL RBC 4.14 10 6/uL HGB 11.8 g/dL HCT 37.1 % MCV 89.6 fL MCH 28.5 pg MCHC 31.8 g/dL RDW 13.7 % Platelet Count 294 10 3/cmm MPV 9.6 fL Neutrophils 2.6 10 3/uL Lymphocytes 0.7 10 3/uL Monocytes 0.9 10 3/uL Eosinophils 0.0 10 3/uL Basophils 0.1 10 3/uL Neutrophil % 56.9 % Lymphocyte % 15.6 % Monocyte % 19.4 % Eosinophil % 0.4 % Basophils % 1.9 % NRBC % 0.6 % Test performed on May 01, 2020 14:20 Sodium 140 mmol/L Potassium 4.1 mmol/L Chloride 102 mmol/L CO2 28 mmol/L Anion Gap 14.1 BUN 8 mg/dL Creatinine 0.6 mg/dL Cr Clearance (Est) 202.8200 mL/min eGFR 104.6 mL/min Glucose 116 mg/dL Calcium 9.4 mg/dL Protein, Total 7.3 g/dL Albumin 4.3 g/dL Globulin 3.0 g/dL Bilirubin, Total 0.2 mg/dL ALT (SGPT) 12 U/L AST (SGOT) 15 U/L Alkaline Phosphatase 107 IU/L CBC Slide Review Slide Review Perform MANUAL REVIEW AGREES WITH AUTOMATED DIFF Impression: Invasive ductal carcinoma status post right breast wide excisional lumpectomy done on 02/09/2019 final pathology report showed invasive ductal carcinoma 5.5 x 4.5 x 3.5 cm, focally extends to the inked posterior margin, extensive ductal carcinoma in situ with focal apocrine features, high nuclear grade. Followed by reexcision of often involved margin on 02/24/2020 with clear margins pT3 and 1 sentinel lymph node was examined showed no evidence of metastatic disease pNo stage IIB, ER/UT/HER-2/cristobal negative with high Ki-67 e.g. 38%. chronic right shoulder pain due to rotator cuff Dr Landeros discussed with Mrs Fermin her disease status. She has locally advanced disease e.g. T3 lesion, status post wide excision of right breast lumpectomy/partial mastectomy with clear surgical margins and 1 sentinel lymph node was examined showed no evidence of metastatic disease, clinical stage IIB. Breast cancer prognostic profiling showed triple negative disease e.g. ER/UT/HER-2/cristobal negative. Being triple negative and locally advanced disease, patient is a candidate for adjuvant chemotherapy, as per [facility] guidelines, we'll consider dose dense Adriamycin Cytoxan e.g. every 2 weeks ???4 with Neulasta support to prevent chemotherapy-induced neutropenia. Followed by weekly Taxol ???12, followed by postlumpectomy radiation therapy. As discussed previously she had significant hyperglycemia, anxiety, insomnia and palpitations with an inadvertently taken steroid premed prior to her chemotherapy today. I do feel that she will not tolerate the steroids and did pursue obtaining Abraxane for her. Ms Fermin began her first cycles of Abraxane on 05/30/2020 She has now completed 4 cycles of Adriamycin Cytoxan. She has experienced expected side effects but overall has tolerated it well. She began her taxane portion of her treatment plan on 05/30/2020. Plan: 1. Proceed with week2/12 of Abraxane. 2. Continue previous premedications as her nausea was appropriately controlled. Will add Protonix 40 mg at hs for acid reflux to see if this antony aide in ontrolling her acif refulx and intermittent vomiting. 3. Labs from today were reviewed in detail and discussed with Mrs. Fermin and a copy was given to her. WBC 6.0 , hemoglobin 9.8, platelets 401,000 ANC is 4800. 4. Venogram of left upper extremity was obtained for evaluation of unilateral edema. Continue Xarelto for unilateral upper extremity edema. Doppler was negative for clot but the swellling did resolve with the addition of Xarelto. 6. We will see her back in 1 week for week 3 of 12 Abraxane. 7. It was opted to change her 12 weeks of taxane to weekly Abraxane given that she had significant hyperglycemia as she inadvertently took her steroid premedication for the Adriamycin/Cytoxan. Her random glucose today was 105 compared to 282 when she took the steroids. She also developed insomnia, anxiety and palpitations with the steroids. Dr. Landeros has recommended pursuing the Abraxane and Mrs. Fermin agrees. 8. I did request iron studies and B12 for anemia assessment and TSH for fatigue. Those additional blood tests were to be added to blood in lab if possible. 9. Mrs. Serrano was instructed to contact us in the interim should questions or problems arise. 10. Ok to take B complex for concerns of neuropathy in her feet/toes. She may add a /Plus if her iron studies are found to b deficient. Signed By: Amaya CaoPQuan-ROSALIO, AONIR Landeros MD <<Signature on File>>
[2020-06-12 10:38] LABS: Basophils # 0.1 10^3/uL (0.0-0.1); Basophils % 1.6 %; Eosinophils % 0.5 %; Hematocrit 29.6 % (37.0-47.0); Hemoglobin 9.3 g/dL (11.5-15.3); Lymphocytes # 0.4 10^3/uL (0.8-4.8); Lymphocytes % 11.3 %; Mean Corpuscular HGB Conc 31.4 g/dL (30.0-36.0); Mean Corpuscular Hemoglobin 28.3 pg (28.0-34.0); Monocytes # 0.4 10^3/uL (0.2-0.9); Monocytes % 11.3 %; Neutrophils # 2.78 10^3/uL (1.8-7.7); Neutrophils % 74.5 %; Nucleated Red Blood Cells % 0 %; Platelet Count 333 10^3/cmm (130-400); Red Blood Count 3.29 10^6/uL (4.1-5.3); Red Cell Distribution Width 15.1 % (12.1-15.1); White Blood Count 3.7 10^3/uL (4.0-10.0)
[2020-06-12 10:49] LABS: Alanine Aminotransferase 24 U/L (0-33); Albumin Level 3.8 g/dL (3.5-5.2); Alkaline Phosphatase 78 IU/L (35-105); Anion Gap 12.8 (5-19); Aspartate Amino Transferase 21 U/L (0-32); Blood Urea Nitrogen 7 mg/dL (6-20); Calcium 8.4 mg/dL (8.5-10.5); Carbon Dioxide 27 mmol/L (22-29); Chloride 103 mmol/L (98-107); Globulin 2.7 g/dL (1.3-4.6); Glomerular Filtration Rate 87.5 mL/min (90-130); Glucose 131 mg/dL (65-115); Osmolality Calculated 286 mOsm/kg (285-295); Potassium 3.8 mmol/L (3.5-5.1); Sodium 139 mmol/L (136-145); Total Bilirubin 0.4 mg/dL (0.15-1.2); Total Protein 6.5 g/dL (6.6-8.7)
--- NOTE | 2020-06-13 16:16 | ONC FU_ITS ---
Dr. Landeros follow up note Patient: Lisbeth Fermin Unit #: [id number]: [id number] Dicatated By: Andrei Landeros M.D.Date of Visit:Jun 13, 2020 Onc Med Follow-up/Prog Note History of Present Illness: Mrs. Fermin is a 54-year-old female with a history of right breast mass. In November 2019 she noted a mass in her right breast. As it did not go away, she underwent mammogram which showed a mass in her right breast. She underwent ultrasound of right breast which showed a mass at 10-12:00, large irregular hypoechoic solid lesion taller than wide, measuring 3.8 x 2.1 x 4.9 cm. The mass was highly suspicious for malignancy. She also had an adjacent smaller solid satellite nodules measuring 1.9 x 1.4 x 1.2 cm and 0.9 x 0.5 x 0.6 cm mass. She then underwent ultrasound-guided core needle biopsies on 01/21/2020. The pathology reported invasive ductal carcinoma of breast. Positive in 5 out of 5 core biopsies. ER/RI negative e.g. (less than 1% although in the report RI was mentioned positive but it was less than 1% and went confirmed with pathology, Dr. Mckinnon said it should be negative). HER-2/cristobal negative as well. Mrs Fermin underwent right breast wide excisional lumpectomy on 02/10/2020. The final pathology report confirmed invasive tumor 5.5 x 4.5 x 3.5 cm. focally extends to the inked posterior margin; remaining margins free of invasive carcinoma. Extensive ductal carcinoma in situ with focal apocrine features, high nuclear grade, carcinoma in situ extends to within 1 mm of inked inferior margin, and remaining margins were free., Complex sclerosing lesion, extensive sclerosing adenosis, fibrocystic changes, cystic and papillary apocrine metaplasia. One sentinel lymph node was removed and examined showed no evidence of metastatic disease. She underwent reexcision of positive surgical margin on 02/24/2020 and obtain clear surgical margins. Mrs Fermin denies any history of bony pains except chronic right shoulder rotator cuff and history of right knee replacement. History of smoking, occasional alcohol use. Menarche at age 15, first at age 26, no history of hormone use. Last menstrual period was in December 2018. she was recommended treatment of her triple negative, sentinel node negative breast cancer with Adriamycin Cytoxan dose dense for 4 cycles followed by Taxotere for 12 weeks. She began her first cycle of chemotherapy on April 04, 2020. We have planned to exchange weekly Taxotere with weekly Abraxane due to significant side effects with steroids. She had significant hyperglycemia, insomnia, worsening anxiety, and mood swings. That was with 1 dose that was intimately taken in preparation for her first chemotherapy with Adriamycin and Cytoxan. . She has completed 4 cycles of dose dense Adriamycin Cytoxan.. She was intolerant to oral steroids (she inadvertently took dexamethasone with her first cycle of AC) in that she had significant hyperglycemia, severe mood swings, insomia and severe anxiety on the day of and day after she took them.That is why instead of weekly Taxol, she was offered weekly Abraxane, 3 weeks on 1 week off x4 cycles, Which started on May 30, 2020 Came for follow-up, denies any specific complaints, no fever chills, no nausea or vomiting, no diarrhea constipation, patient said her 's mother has recently and coming is the and she is concerned about exposure to many people especially when she is on chemotherapy Medications: Acid Control Maximum Strength 1 Tablet (of 20 mg) Oral at bedtime PRN, ALPRAZolam 1 (1 mg) Tablet Oral t.i.d. PRN, Claritin 1 Tablet (of 10 mg) Oral at bedtime, Cymbalta 1 (30 mg) Capsule Delayed Release Particles Oral daily, HYDROcodone-Acetaminophen 1 Tablet (of 10-325 mg) Oral q 6 hours PRN, Lidocaine-Prilocaine 1 (2.5-2.5 %) Cream Topical daily PRN, LORazepam 0.5 - 1 Tablet (of 1 mg) Oral t.i.d. PRN, Methocarbamol 1 - 2 Tablet (of 750 mg) Oral t.i.d. PRN, Ondansetron HCl 1 - 2 Tablet (of 4 mg) Oral four times a day PRN, Prochlorperazine Maleate 1 Tablet (of 10 mg) Oral q 4 hours PRN, Xarelto 1 Tablet (of 15 mg) Oral b.i.d. Allergies: Latex and Penicillins. Review of Systems: Constitutional - Appetite is good and weight is stable. No fever, night sweats, or hot flashes. Energy level is fair, ENMT - No sinus congestion/drainage. No mouth sores. No sore throat or difficulty swallowing, Hematologic/Lymphatic - No abnormal bruising or bleeding, Respiratory - No shortness of breath. No cough. No pleuritic pain or hemoptysis, Cardiovascular - No angina pain. No palpitations, Gastrointestinal - No nausea or vomiting. Positive for heartburn, no acid reflux. No diarrhea or constipation. No blood in the stool or black stools, Genitourinary (F) - No dysuria or hematuria. No urinary frequency. No urgency or incontinence, Musculoskeletal - Positive for joint pain, Neurologic - No headache or dizziness. No numbness or tingling. No other focal neurologic symptoms, Psychiatric - Positive for anxiety, no depression. Positive for occasional bouts of insomnia. Vital Signs: Performed on Jun 13, 2020 13:12 Height - 72.00 in Weight - 254.6 lbs (HIGH) BSA - 2.36 sq.m BMI - 34.53 (HIGH) Temperature - 98.0 F (LOW) Pulse - 99 /min Respiration - 22 /min BP - 148/77 mm(hg) (HIGH) O2 Sat - 98 % Pain - 6 Performance Status: 0 - Fully active, able to carry on all predisease activities without restrictions. (ECOG) Physical Examination: Respiratory - Lungs are clear, Cardiovascular - Regular rate and rhythm of heart, Gastrointestinal - Soft, bowel sounds present, Extremities - No visible edema. Lab/Imaging: Test performed on Jun 06, 2020 10:35 Ferritin 212 ng/mL Iron 28 mcg/dL TSH 1.01 uIU/mL Vitamin B12 > 2000 pg/mL Iron Binding Capacity (TIBC) 204 mcg/dl % Iron Saturation 13.7 % UIBC 176 mcg/dL Test performed on May 29, 2020 10:06 Sodium 139 mmol/L Potassium 4.2 mmol/L Chloride 103 mmol/L CO2 27 mmol/L Anion Gap 13.2 BUN 6 mg/dL Creatinine 0.8 mg/dL Cr Clearance (Est) 148.1500 mL/min eGFR 75.0 mL/min Glucose 92 mg/dL Calcium 9.4 mg/dL Protein, Total 6.5 g/dL Albumin 4.2 g/dL Globulin 2.3 g/dL Bilirubin, Total 0.3 mg/dL ALT (SGPT) 14 U/L AST (SGOT) 20 U/L Alkaline Phosphatase 107 IU/L WBC 3.9 10 3/uL RBC 3.70 10 6/uL HGB 10.8 g/dL HCT 33.7 % MCV 91.1 fL MCH 29.2 pg MCHC 32.0 g/dL RDW 14.6 % Platelet Count 251 10 3/cmm MPV 9.6 fL Neutrophils 2.16 10 3/uL Lymphocytes 0.5 10 3/uL Monocytes 0.8 10 3/uL Eosinophils 0.0 10 3/uL Basophils 0.1 10 3/uL Neutrophil % 55.8 % Lymphocyte % 12.7 % Monocyte % 21.4 % Eosinophil % 0.3 % Basophils % 1.3 % NRBC % 1.0 % CBC Slide Review Slide Review Perform SLIDE REVIEW AGREES WITH AUTOMATED RESULTS ST Impression: Invasive ductal carcinoma status post right breast wide excisional lumpectomy done on 02/09/2019 final pathology report showed invasive ductal carcinoma 5.5 x 4.5 x 3.5 cm, focally extends to the inked posterior margin, extensive ductal carcinoma in situ with focal apocrine features, high nuclear grade. Followed by reexcision of often involved margin on 02/24/2020 with clear margins pT3 and 1 sentinel lymph node was examined showed no evidence of metastatic disease pNo stage IIB, ER/RI/HER-2/cristobal negative with high Ki-67 e.g. 38%. chronic right shoulder pain due to rotator cuff discussed with Mrs Fermin her disease status. She has locally advanced disease e.g. T3 lesion, status post wide excision of right breast lumpectomy/partial mastectomy with clear surgical margins and 1 sentinel lymph node was examined showed no evidence of metastatic disease, clinical stage IIB. Breast cancer prognostic profiling showed triple negative disease e.g. ER/RI/HER-2/cristobal negative. Being triple negative and locally advanced disease, patient is a candidate for adjuvant chemotherapy, as per [facility] guidelines, we'll consider dose dense Adriamycin Cytoxan e.g. every 2 weeks ???4 with Neulasta support to prevent chemotherapy-induced neutropenia. Followed by weekly Taxol ???12, followed by postlumpectomy radiation therapy. As discussed previously she had significant hyperglycemia, anxiety, insomnia and palpitations with an inadvertently taken steroid premed prior to her chemotherapy today. I do feel that she will not tolerate the steroids and did pursue obtaining Abraxane for her. Ms Fermin began her first cycles of Abraxane on 05/30/2020 She has now completed 4 cycles of Adriamycin Cytoxan. She has experienced expected side effects but overall has tolerated it well. She began her taxane portion of her treatment plan on 05/30/2020. Plan: Discussed with patient regarding her labs white blood count 3.7 hemoglobin 9.3 hematocrit 29.6 platelets 333,000 with ANC 2.7 CMP within normal limits, B12 more than 2000 ferritin 212 iron saturation 13.7 which is low iron 28 again which is low and TSH 1.01 Clinically, patient is done reasonably well, tolerating adjuvant therapy with weekly Abraxane well but with expected side effects e.g. progressive leukopenia/neutropenia, patient was scheduled to see you her day 15 dose today but because of progressive neutropenia/leukopenia and moreover she will be exposed to many people during the of her [id number], we will hold her chemotherapy for this week and then return to clinic in 1 week with CBC CMP and if there is improvement in her leukopenia/neutropenia, will consider next weekly dose of Abraxane and plan to give her weekly x3 then week off, total 12 doses As far as moderate anemia is concerned, her anemia work-up shows iron deficiency anemia and her ferritin could be elevated due to inflammation as acute phase reactant as her iron saturation is low as well as iron is low so we will consider iron supplement. Her B12 level and TSH is within normal range. Signed By: Andrei Landeros M.D. <<Signature on File>>
== END 2020-06-16 23:59 | disposition home or self-care (01) ==
LOC: ONCMED 06:47
PROVIDERS: Nurse Practitioner; PCP Internal Medicine; Visit Provider Internal Medicine Hematology & Oncology
DX: Z51.11 Encounter for antineoplastic chemotherapy (principal); C50.411 Malignant neoplasm of upper-outer quadrant of right female breast; Z17.1 Estrogen receptor negative status [ER-]; T82.594A Other mechanical complication of infusion catheter, initial encounter; Y80.1 Therapeutic (nonsurgical) and rehabilitative physical medicine devices associated with adverse incidents; F41.9 Anxiety disorder, unspecified; M19.90 Unspecified osteoarthritis, unspecified site; F32.9 Major depressive disorder, single episode, unspecified; G89.29 Other chronic pain; M25.511 Pain in right shoulder; R60.0 Localized edema; D64.9 Anemia, unspecified; R53.83 Other fatigue; G62.9 Polyneuropathy, unspecified; Z79.891 Long term (current) use of opiate analgesic; Z79.01 Long term (current) use of anticoagulants; Z98.1 Arthrodesis status; Z96.651 Presence of right artificial knee joint; Z87.891 Personal history of nicotine dependence
CPT/HCPCS: 36591; 36593; 80053; 82607; 82728; 83540; 83550; 84443; 85025; 96367; 96374; 96413; 99214; J1100; J2469; J2997; J3490; J7050; J9264

== ENCOUNTER 2020-07-17 05:34 | Outpatient (RCR) | payer MEDICAID, SELFPAY ==
[2020-06-19 10:16] LABS: Basophils # 0.1 10^3/uL (0.0-0.1); Basophils % 0.9 %; Eosinophils # 0.3 10^3/uL (0.0-0.8); Eosinophils % 3.5 %; Hematocrit 35.7 % (37.0-47.0); Lymphocytes # 0.9 10^3/uL (0.8-4.8); Lymphocytes % 9.9 %; Mean Corpuscular HGB Conc 30.8 g/dL (30.0-36.0); Mean Corpuscular Hemoglobin 27.6 pg (28.0-34.0); Mean Corpuscular Volume 89.7 fL (81-99); Mean Platelet Volume 9.9 fL (7.4-10.4); Monocytes # 1.1 10^3/uL (0.2-0.9); Monocytes % 12.1 %; Neutrophils # 6.47 10^3/uL (1.8-7.7); Neutrophils % 72.9 %; Nucleated Red Blood Cells % 0 %; Platelet Count 401 10^3/cmm (130-400); Red Blood Count 3.98 10^6/uL (4.1-5.3); Red Cell Distribution Width 15.2 % (12.1-15.1); White Blood Count 8.9 10^3/uL (4.0-10.0)
[2020-06-19 10:41] LABS: Alanine Aminotransferase 19 U/L (0-33); Albumin Level 4.1 g/dL (3.5-5.2); Alkaline Phosphatase 91 IU/L (35-105); Aspartate Amino Transferase 22 U/L (0-32); Blood Urea Nitrogen 9 mg/dL (6-20); Calcium 9.6 mg/dL (8.5-10.5); Carbon Dioxide 25 mmol/L (22-29); Chloride 101 mmol/L (98-107); Globulin 2.6 g/dL (1.3-4.6); Glomerular Filtration Rate 87.5 mL/min (90-130); Glucose 166 mg/dL (65-115); Osmolality Calculated 280 mOsm/kg (285-295); Sodium 135 mmol/L (136-145); Total Bilirubin 0.3 mg/dL (0.15-1.2); Total Protein 6.7 g/dL (6.6-8.7)
[2020-06-20] MEDS: sodium chloride 0.9% 250 ML 999 ML IV (10:24)
--- NOTE | 2020-06-20 17:01 | ONC FU_ITS ---
Dr. Landeros follow up note Patient: Lisbeth Fermin Unit #: [id number]: 1965 Dicatated By: Andrei Landeros M.D.Date of Visit:Jun 20, 2020 Onc Med Follow-up/Prog Note History of Present Illness: Mrs. Fermin is a 54-year-old female with a history of right breast mass. In November 2019 she noted a mass in her right breast. As it did not go away, she underwent mammogram which showed a mass in her right breast. She underwent ultrasound of right breast which showed a mass at 10-12:00, large irregular hypoechoic solid lesion taller than wide, measuring 3.8 x 2.1 x 4.9 cm. The mass was highly suspicious for malignancy. She also had an adjacent smaller solid satellite nodules measuring 1.9 x 1.4 x 1.2 cm and 0.9 x 0.5 x 0.6 cm mass. She then underwent ultrasound-guided core needle biopsies on 01/21/2020. The pathology reported invasive ductal carcinoma of breast. Positive in 5 out of 5 core biopsies. ER/GA negative e.g. (less than 1% although in the report [place] was mentioned positive but it was less than 1% and went confirmed with pathology, Dr. Mckinnon said it should be negative). HER-2/cristobal negative as well. Mrs Fermin underwent right breast wide excisional lumpectomy on 02/10/2020. The final pathology report confirmed invasive tumor 5.5 x 4.5 x 3.5 cm. focally extends to the inked posterior margin; remaining margins free of invasive carcinoma. Extensive ductal carcinoma in situ with focal apocrine features, high nuclear grade, carcinoma in situ extends to within 1 mm of inked inferior margin, and remaining margins were free., Complex sclerosing lesion, extensive sclerosing adenosis, fibrocystic changes, cystic and papillary apocrine metaplasia. One sentinel lymph node was removed and examined showed no evidence of metastatic disease. She underwent reexcision of positive surgical margin on 02/24/2020 and obtain clear surgical margins. Mrs Fermin denies any history of bony pains except chronic right shoulder rotator cuff and history of right knee replacement. History of smoking, occasional alcohol use. Menarche at age 15, first at age 26, no history of hormone use. Last menstrual period was in December 2018. she was recommended treatment of her triple negative, sentinel node negative breast cancer with Adriamycin Cytoxan dose dense for 4 cycles followed by Taxotere for 12 weeks. She began her first cycle of chemotherapy on April 04, 2020. We have planned to exchange weekly Taxotere with weekly Abraxane due to significant side effects with steroids. She had significant hyperglycemia, insomnia, worsening anxiety, and mood swings. That was with 1 dose that was intimately taken in preparation for her first chemotherapy with Adriamycin and Cytoxan. . She has completed 4 cycles of dose dense Adriamycin Cytoxan.. She was intolerant to oral steroids (she inadvertently took dexamethasone with her first cycle of AC) in that she had significant hyperglycemia, severe mood swings, insomia and severe anxiety on the day of and day after she took them.That is why instead of weekly Taxol, she was offered weekly Abraxane, 3 weeks on 1 week off x4 cycles, Which started on May 30, 2020 Came for follow-up, denies any specific complaints, no fever chills, no nausea or vomiting, no diarrhea or constipation, no peripheral neuropathy, no mouth sores, no shortness of breath or palpitation. Tolerating weekly Abraxane well Medications: ALPRAZolam 1 (1 mg) Tablet Oral t.i.d. PRN, Claritin 1 Tablet (of 10 mg) Oral at bedtime, Cymbalta 1 (30 mg) Capsule Delayed Release Particles Oral daily, HYDROcodone-Acetaminophen 1 Tablet (of 10-325 mg) Oral q 6 hours PRN, Lidocaine-Prilocaine 1 (2.5-2.5 %) Cream Topical daily PRN, LORazepam 0.5 - 1 Tablet (of 1 mg) Oral t.i.d. PRN, Methocarbamol 1 - 2 Tablet (of 750 mg) Oral t.i.d. PRN, Ondansetron HCl 1 - 2 Tablet (of 4 mg) Oral four times a day PRN, Prochlorperazine Maleate 1 Tablet (of 10 mg) Oral q 4 hours PRN, Xarelto 1 Tablet (of 15 mg) Oral b.i.d. Allergies: Latex and Penicillins. Review of Systems: Constitutional - Appetite is good and weight is stable. No fever, night sweats, or hot flashes. Energy level is fair, ENMT - No sinus congestion/drainage. No mouth sores. No sore throat or difficulty swallowing, Hematologic/Lymphatic - No abnormal bruising or bleeding, Respiratory - No shortness of breath. No cough. No pleuritic pain or hemoptysis, Cardiovascular - No angina pain. No palpitations, Gastrointestinal - Occasional nausea and vomiting. Positive for heartburn, no acid reflux. No diarrhea or constipation. No blood in the stool or black stools, Genitourinary (F) - No dysuria or hematuria. No urinary frequency. No urgency or incontinence, Musculoskeletal - Positive for joint pain, Neurologic - No headache or dizziness. No numbness or tingling. No other focal neurologic symptoms, Psychiatric - Positive for anxiety, no depression. Positive for occasional bouts of insomnia. Vital Signs: Performed on Jun 20, 2020 09:39 Height - 72.00 in Weight - 248.8 lbs (LOW) BSA - 2.34 sq.m BMI - 33.74 (HIGH) Temperature - 97.4 F (LOW) Pulse - 99 /min Respiration - 16 /min BP - 127/78 mm(hg) O2 Sat - 100 % Pain - 6 Performance Status: 0 - Fully active, able to carry on all predisease activities without restrictions. (ECOG) Physical Examination: Respiratory - Lungs are clear, Cardiovascular - Regular rate and rhythm of heart, Gastrointestinal - Soft, bowel sounds present, Extremities - No visible edema or rash. Lab/Imaging: Test performed on Jun 19, 2020 09:55 Sodium 135 mmol/L Potassium 4.0 mmol/L Chloride 101 mmol/L CO2 25 mmol/L Anion Gap 13.0 BUN 9 mg/dL Creatinine 0.7 mg/dL Cr Clearance (Est) 169.3200 mL/min eGFR 87.5 mL/min Glucose 166 mg/dL Calcium 9.6 mg/dL Protein, Total 6.7 g/dL Albumin 4.1 g/dL Globulin 2.6 g/dL Bilirubin, Total 0.3 mg/dL ALT (SGPT) 19 U/L AST (SGOT) 22 U/L Alkaline Phosphatase 91 IU/L WBC 8.9 10 3/uL RBC 3.98 10 6/uL HGB 11.0 g/dL HCT 35.7 % MCV 89.7 fL MCH 27.6 pg MCHC 30.8 g/dL RDW 15.2 % Platelet Count 401 10 3/cmm MPV 9.9 fL Neutrophils 6.47 10 3/uL Lymphocytes 0.9 10 3/uL Monocytes 1.1 10 3/uL Eosinophils 0.3 10 3/uL Basophils 0.1 10 3/uL Neutrophil % 72.9 % Lymphocyte % 9.9 % Monocyte % 12.1 % Eosinophil % 3.5 % Basophils % 0.9 % NRBC % 0 % Test performed on Jun 06, 2020 10:35 Ferritin 212 ng/mL Iron 28 mcg/dL TSH 1.01 uIU/mL Vitamin B12 > 2000 pg/mL Iron Binding Capacity (TIBC) 204 mcg/dl % Iron Saturation 13.7 % UIBC 176 mcg/dL Test performed on May 29, 2020 10:06 CBC Slide Review Slide Review Perform SLIDE REVIEW AGREES WITH AUTOMATED RESULTS ST Impression: Invasive ductal carcinoma status post right breast wide excisional lumpectomy done on 02/09/2019 final pathology report showed invasive ductal carcinoma 5.5 x 4.5 x 3.5 cm, focally extends to the inked posterior margin, extensive ductal carcinoma in situ with focal apocrine features, high nuclear grade. Followed by reexcision of often involved margin on 02/24/2020 with clear margins pT3 and 1 sentinel lymph node was examined showed no evidence of metastatic disease pNo stage IIB, ER/GA/HER-2/cristobal negative with high Ki-67 e.g. 38%. chronic right shoulder pain due to rotator cuff discussed with Mrs Fermin her disease status. She has locally advanced disease e.g. T3 lesion, status post wide excision of right breast lumpectomy/partial mastectomy with clear surgical margins and 1 sentinel lymph node was examined showed no evidence of metastatic disease, clinical stage IIB. Breast cancer prognostic profiling showed triple negative disease e.g. ER/GA/HER-2/crisotbal negative. Being triple negative and locally advanced disease, patient is a candidate for adjuvant chemotherapy, as per N [facility] guidelines, we'll consider dose dense Adriamycin Cytoxan e.g. every 2 weeks ???4 with Neulasta support to prevent chemotherapy-induced neutropenia. Followed by weekly Taxol ???12, followed by postlumpectomy radiation therapy. As discussed previously she had significant hyperglycemia, anxiety, insomnia and palpitations with an inadvertently taken steroid premed prior to her chemotherapy today. I do feel that she will not tolerate the steroids and did pursue obtaining Abraxane for her. Ms Fermin began her first cycles of Abraxane on 05/30/2020 She has now completed 4 cycles of Adriamycin Cytoxan. She has experienced expected side effects but overall has tolerated it well. She began her taxane portion of her treatment plan on 05/30/2020. Plan: Discussed with patient regarding her labs white blood count 8.9 hemoglobin 11 hematocrit 35.7 platelets 401,000 CMP within normal limit except glucose 166 Clinically, patient doing well, tolerating adjuvant therapy with weekly Abraxane well. We will proceed with next weekly dose #3/12, today, and then patient will continue with 3 weeks on 1 week off, total 12 doses Signed By: Andrei Landeros M.D. <<Signature on File>>
[2020-06-26 12:10] LABS: Alanine Aminotransferase 24 U/L (0-33); Albumin Level 3.7 g/dL (3.5-5.2); Alkaline Phosphatase 80 IU/L (35-105); Anion Gap 12.1 (5-19); Aspartate Amino Transferase 23 U/L (0-32); Blood Urea Nitrogen 10 mg/dL (6-20); Calcium 8.5 mg/dL (8.5-10.5); Carbon Dioxide 26 mmol/L (22-29); Chloride 104 mmol/L (98-107); Globulin 2.6 g/dL (1.3-4.6); Glomerular Filtration Rate 104.6 mL/min (90-130); Glucose 100 mg/dL (65-115); Osmolality Calculated 282 mOsm/kg (285-295); Potassium 4.1 mmol/L (3.5-5.1); Sodium 138 mmol/L (136-145); Total Bilirubin 0.3 mg/dL (0.15-1.2); Total Protein 6.3 g/dL (6.6-8.7)
[2020-06-27] MEDS: alteplase 1 mg/mL SDV 2 mL 2 MG IV (13:20)
[2020-06-27 13:46] LABS: Basophils # 0.1 10^3/uL (0.0-0.1); Basophils % 0.8 %; Eosinophils # 0.4 10^3/uL (0.0-0.8); Eosinophils % 5.8 %; Hematocrit 31.4 % (37.0-47.0); Hemoglobin 9.8 g/dL (11.5-15.3); Lymphocytes # 0.8 10^3/uL (0.8-4.8); Lymphocytes % 12.8 %; Mean Corpuscular HGB Conc 31.2 g/dL (30.0-36.0); Mean Corpuscular Hemoglobin 28.7 pg (28.0-34.0); Mean Corpuscular Volume 91.8 fL (81-99); Mean Platelet Volume 9.9 fL (7.4-10.4); Monocytes # 0.5 10^3/uL (0.2-0.9); Monocytes % 7.3 %; Neutrophils # 4.75 10^3/uL (1.8-7.7); Neutrophils % 72.4 %; Nucleated Red Blood Cells % 0 %; Platelet Count 349 10^3/cmm (130-400); Red Blood Count 3.42 10^6/uL (4.1-5.3); Red Cell Distribution Width 15.4 % (12.1-15.1); White Blood Count 6.6 10^3/uL (4.0-10.0)
--- NOTE | 2020-06-27 16:30 | ONC FU_ITS ---
[facility] Patient Note Patient: Lisbeth Fermin Unit #: [id number]: 1965 Dictated By: Ghada CaoDate of Visit: Jun 27, 2020 Onc MED Follow-Up/Prog Note Chief Complaint: Right breast cancer History of Present Illness: Mrs. Fermin is a 54-year-old female with a history of right breast mass. In November 2019 she noted a mass in her right breast. As it did not go away, she underwent mammogram which showed a mass in her right breast. She underwent ultrasound of right breast which showed a mass at 10-12:00, large irregular hypoechoic solid lesion taller than wide, measuring 3.8 x 2.1 x 4.9 cm. The mass was highly suspicious for malignancy. She also had an adjacent smaller solid satellite nodules measuring 1.9 x 1.4 x 1.2 cm and 0.9 x 0.5 x 0.6 cm mass. She then underwent ultrasound-guided core needle biopsies on 01/21/2020. The pathology reported invasive ductal carcinoma of breast. Positive in 5 out of 5 core biopsies. ER/[place] negative e.g. (less than 1% although in the report [place] was mentioned positive but it was less than 1% and went confirmed with pathology, Dr. Mckinnon said it should be negative). HER-2/cristobal negative as well. Mrs Fermin underwent right breast wide excisional lumpectomy on 02/10/2020. The final pathology report confirmed invasive tumor 5.5 x 4.5 x 3.5 cm. focally extends to the inked posterior margin; remaining margins free of invasive carcinoma. Extensive ductal carcinoma in situ with focal apocrine features, high nuclear grade, carcinoma in situ extends to within 1 mm of inked inferior margin, and remaining margins were free., Complex sclerosing lesion, extensive sclerosing adenosis, fibrocystic changes, cystic and papillary apocrine metaplasia. One sentinel lymph node was removed and examined showed no evidence of metastatic disease. She underwent reexcision of positive surgical margin on 02/24/2020 and obtain clear surgical margins. Mrs Fermin denies any history of bony pains except chronic right shoulder rotator cuff and history of right knee replacement. History of smoking, occasional alcohol use. Menarche at age 15, first at age 26, no history of hormone use. Last menstrual period was in December 2018. she was recommended treatment of her triple negative, sentinel node negative breast cancer with Adriamycin Cytoxan dose dense for 4 cycles followed by Taxotere for 12 weeks. She began her first cycle of chemotherapy on April 04, 2020. We have planned to exchange weekly Taxotere with weekly Abraxane due to significant side effects with steroids. She had significant hyperglycemia, insomnia, worsening anxiety, and mood swings. That was with 1 dose that was inadvertently taken in preparation for her first chemotherapy with Adriamycin and Cytoxan. She has completed 4 cycles of dose dense Adriamycin Cytoxan.. She was intolerant to oral steroids (she inadvertently took dexamethasone with her first cycle of AC) in that she had significant hyperglycemia, severe mood swings, insomia and severe anxiety on the day of and day after she took them.That is why instead of weekly Taxol, she was offered weekly Abraxane, 3 weeks on 1 week off x4 cycles, Which started on May 30, 2020. She was delayed on 06/13/2020 due to performance status and her mother in law's /. Mrs. Fermin is here today for follow-up. She is due for cycle 2-day 8 Abraxane. She is doing well overall. She has no new complaints. She states she still having fatigue but is no worse. She is getting ready to resume her job. Her college starts back here in the next couple of weeks. She has been working on COVID preparations for that. She denies any shortness of breath orthopnea she is had no new neuropathy. She states her bowels and bladder are normal for her. She denies mouth sores, sore throat or difficulty swallowing. She denies any diarrhea or constipation. She states she is eating good. Her ECOG is 0. Past Medical History: Anxiety Arthritis Depression History of right breast cancer Migraine headaches Past Surgical History: Breast biopsy Cervical fusion Left knee arthroscopy Right breast lumpectomy Right foot tendon avulsion Right total knee replacement Allergies: Latex and Penicillins. Medications: ALPRAZolam 1 (1 mg) Tablet Oral t.i.d. PRN Claritin 1 Tablet (of 10 mg) Oral at bedtime Cymbalta 1 (30 mg) Capsule Delayed Release Particles Oral daily HYDROcodone-Acetaminophen 1 Tablet (of 10-325 mg) Oral q 6 hours PRN Lidocaine-Prilocaine 1 (2.5-2.5 %) Cream Topical daily PRN LORazepam 0.5 - 1 Tablet (of 1 mg) Oral t.i.d. PRN Methocarbamol 1 - 2 Tablet (of 750 mg) Oral t.i.d. PRN Ondansetron HCl 1 - 2 Tablet (of 4 mg) Oral four times a day PRN Prochlorperazine Maleate 1 Tablet (of 10 mg) Oral q 4 hours PRN Xarelto 1 Tablet (of 15 mg) Oral b.i.d. Family History: Ms. Fermin's mother is alive: colon cancer. Ms. Fermin's father at age 71: colon cancer. 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 Ms. Fermin quit smoking 3 years ago but had smoked 1.0 pack/day for 25 years. She drinks occasionally. She consumes 2 days/week. Ms. Fermin reports the following support systems: lives with spouse, significant other, family, or friends, lives in own house, supportive family/friends willing to assist with needs, and adequate transportation available for expected visits. Her diet consists of regular meals. She indicates her activity level as: regular exercise. Review Of Symptoms: Constitutional Denies fevers, chills, night sweats or weight loss. Has had fatigue. Allergic/Immunologic seasonal allergies-cottonwood trees. Eyes Denies significant visual changes. No diplopia. No amaurosis. ENMT Denies changes in hearing, sore throat, mouth sores, difficulty or changes in swallowing ability, and/or sinus drainage. Endocrine No diabetes, thyroid disease or hormone replacement. Denies hot flashes or night sweats. Hematologic/Lymphatic Denies easy bruising or bleeding. The patient denies any tender or palpable lymph nodes. Breasts no new concerns Respiratory Denies dyspnea on exertion, chest pain, cough or hemoptysis. Denies orthopnea. Cardiovascular Denies anginal chest pain, palpitations or orthopnea. Gastrointestinal Denies nausea, diarrhea, GI bleeding, or constipation. Denies change in bowel habits and/or stool color or early satiety. Genitourinary (F) No hematuria, hesitancy, incontinence, vaginal bleeding, discharge or other problems with urination. Musculoskeletal Denies joint pain, swelling or redness. No decreased range of motion. Integumentary Denies chronic rashes, inflammation, ulcerations or skin changes. Neurologic Denies headache, blurred vision, and no areas of focal weakness or numbness. Normal gait. No sensory problems. Psychiatric Denies insomnia, depression, monae or mood swings. Vital Signs: Performed on Jun 27, 2020 13:35 Height - 72.00 in Weight - 252.8 lbs (HIGH) BSA - 2.35 sq.m BMI - 34.29 (HIGH) Temperature - 97.5 F (LOW) Pulse - 94 /min Respiration - 18 /min BP - 144/79 mm(hg) (HIGH) O2 Sat - 97 % Pain - 7,0 - Fully active, able to carry on all predisease activities without restrictions. (ECOG) Physical Examination: Constitutional Alert, oriented, no acute distress. Skin pink, warm and dry. Alopecia. Head Normocephalic; atraumatic. Eyes Conjunctivae and sclerae are clear and without icterus. Pupils are reactive and equal. Neck Supple without masses or thyromegaly. No jugular venous distension. Hematologic/Lymphatic No petechiae or purpura. No tender or palpable lymph nodes in the cervical or supraclavicular areas. Respiratory Lungs are clear to auscultation without rhonchi or wheezing. Cardiovascular Regular rate and rhythm of heart without murmurs,clicks, gallops or rubs. Chest Left venous access insertion site is unremarkable. Abdomen Non-tender, non-distended, no masses or ascites. No guarding or rebound tenderness. No pulsatile masses. Back/Spine Non-tender to palpation. Extremities No visible deformities, no cyanosis, clubbing or edema. Musculoskeletal No tenderness or swelling, normal range of motion without obvious weakness. Integumentary No rashes or lesions. Neurologic No sensory or motor deficits, normal cerebellar function, normal gait. Psychiatric Alert and oriented times three. Coherent speech. Verbalizes understanding of our discussions today. Laboratory:Test performed on Jun 27, 2020 13:24 WBC 6.6 10 3/uL RBC 3.42 10 6/uL HGB 9.8 g/dL HCT 31.4 % MCV 91.8 fL MCH 28.7 pg MCHC 31.2 g/dL RDW 15.4 % Platelet Count 349 10 3/cmm MPV 9.9 fL Neutrophils 4.75 10 3/uL Lymphocytes 0.8 10 3/uL Monocytes 0.5 10 3/uL Eosinophils 0.4 10 3/uL Basophils 0.1 10 3/uL Neutrophil % 72.4 % Lymphocyte % 12.8 % Monocyte % 7.3 % Eosinophil % 5.8 % Basophils % 0.8 % NRBC % 0 % Test performed on Jun 19, 2020 09:55 Sodium 135 mmol/L Potassium 4.0 mmol/L Chloride 101 mmol/L CO2 25 mmol/L Anion Gap 13.0 BUN 9 mg/dL Creatinine 0.7 mg/dL Cr Clearance (Est) 169.3200 mL/min eGFR 87.5 mL/min Glucose 166 mg/dL Calcium 9.6 mg/dL Protein, Total 6.7 g/dL Albumin 4.1 g/dL Globulin 2.6 g/dL Bilirubin, Total 0.3 mg/dL ALT (SGPT) 19 U/L AST (SGOT) 22 U/L Alkaline Phosphatase 91 IU/L Test performed on Jun 06, 2020 10:35 Ferritin 212 ng/mL Iron 28 mcg/dL TSH 1.01 uIU/mL Vitamin B12 > 2000 pg/mL Iron Binding Capacity (TIBC) 204 mcg/dl % Iron Saturation 13.7 % UIBC 176 mcg/dL Test performed on May 29, 2020 10:06 CBC Slide Review Slide Review Perform SLIDE REVIEW AGREES WITH AUTOMATED RESULTS ST Impression: Invasive ductal carcinoma status post right breast wide excisional lumpectomy done on 02/09/2019 final pathology report showed invasive ductal carcinoma 5.5 x 4.5 x 3.5 cm, focally extends to the inked posterior margin, extensive ductal carcinoma in situ with focal apocrine features, high nuclear grade. Followed by reexcision of often involved margin on 02/24/2020 with clear margins pT3 and 1 sentinel lymph node was examined showed no evidence of metastatic disease pNo stage IIB, ER/[place]/HER-2/cristobal negative with high Ki-67 e.g. 38%. chronic right shoulder pain due to rotator cuff discussed with Mrs Fermin her disease status. She has locally advanced disease e.g. T3 lesion, status post wide excision of right breast lumpectomy/partial mastectomy with clear surgical margins and 1 sentinel lymph node was examined showed no evidence of metastatic disease, clinical stage IIB. Breast cancer prognostic profiling showed triple negative disease e.g. ER/[place]/HER-2/cristobal negative. Being triple negative and locally advanced disease, patient is a candidate for adjuvant chemotherapy, as per N [facility] guidelines, we'll consider dose dense Adriamycin Cytoxan e.g. every 2 weeks ???4 with Neulasta support to prevent chemotherapy-induced neutropenia. Followed by weekly Taxol ???12, followed by postlumpectomy radiation therapy. As discussed previously she had significant hyperglycemia, anxiety, insomnia and palpitations with an inadvertently taken steroid premed prior to her chemotherapy today. It was felt that she wouold not tolerate the steroids and we did pursue obtaining Abraxane for her. Ms Fermin began her first cycles of Abraxane on 05/30/2020 She has now completed 4 cycles of Adriamycin Cytoxan. She has experienced expected side effects but overall has tolerated it well. She began her taxane portion of her treatment plan on 05/30/2020. Plan: 1. Proceed with week 4/12 of Abraxane. (Cycle 2 day 8-day 15 of cycle was delayed). 2. Continue previous premedications as her nausea was appropriately controlled. Continue Protonix 40 mg at hs for acid reflux. 3. Labs from today were reviewed in detail and discussed with Mrs. Fermin and a copy was given to her. WBC 6.6, hemoglobin 9.8, platelets 349,000 ANC is 4800. 4. Venogram of left upper extremity was obtained for evaluation of unilateral edema. Continue Xarelto for unilateral upper extremity edema. Doppler was negative for clot but the swellling did resolve with the addition of Xarelto. 6. We will see her back in 1 week for week 5 of 12 Abraxane. (Cycle 2 day 15-then off [address] Landeros's treatment plan). 7. It was opted to change her 12 weeks of taxane to weekly Abraxane given that she had significant hyperglycemia as she inadvertently took her steroid premedication for the Adriamycin/Cytoxan. Her random glucose today was 105 compared to 282 when she took the steroids. She also developed insomnia, anxiety and palpitations with the steroids. Dr. Landeros has recommended pursuing the Abraxane and Mrs. Fermin agrees. 8. Mrs. Serrano was instructed to contact us in the interim should questions or problems arise. Signed By: Ghada Cao-, [facility] Andrei Landeros MD <<Signature on File>>
[2020-07-03 09:50] LABS: Basophils # 0.1 10^3/uL (0.0-0.1); Basophils % 1.3 %; Eosinophils # 0.1 10^3/uL (0.0-0.8); Eosinophils % 2.9 %; Hematocrit 35.6 % (37.0-47.0); Hemoglobin 10.8 g/dL (11.5-15.3); Lymphocytes # 0.6 10^3/uL (0.8-4.8); Lymphocytes % 16.6 %; Mean Corpuscular HGB Conc 30.3 g/dL (30.0-36.0); Mean Corpuscular Hemoglobin 27.3 pg (28.0-34.0); Mean Corpuscular Volume 90.1 fL (81-99); Mean Platelet Volume 10.3 fL (7.4-10.4); Monocytes # 0.2 10^3/uL (0.2-0.9); Monocytes % 6.2 %; Neutrophils % 72.5 %; Nucleated Red Blood Cells % 0 %; Platelet Count 383 10^3/cmm (130-400); Red Blood Count 3.95 10^6/uL (4.1-5.3); Red Cell Distribution Width 15.4 % (12.1-15.1); White Blood Count 3.7 10^3/uL (4.0-10.0)
[2020-07-03 10:11] LABS: Alanine Aminotransferase 30 U/L (0-33); Albumin Level 4.2 g/dL (3.5-5.2); Alkaline Phosphatase 87 IU/L (35-105); Anion Gap 13.9 (5-19); Aspartate Amino Transferase 24 U/L (0-32); Blood Urea Nitrogen 13 mg/dL (6-20); Calcium 8.7 mg/dL (8.5-10.5); Carbon Dioxide 25 mmol/L (22-29); Chloride 101 mmol/L (98-107); Globulin 2.8 g/dL (1.3-4.6); Glomerular Filtration Rate 104.6 mL/min (90-130); Glucose 148 mg/dL (65-115); Osmolality Calculated 281 mOsm/kg (285-295); Potassium 3.9 mmol/L (3.5-5.1); Sodium 136 mmol/L (136-145); Total Bilirubin 0.4 mg/dL (0.15-1.2)
--- NOTE | 2020-07-04 16:14 | ONC FU_ITS ---
Dr. Landeros follow up note Patient: Lisbeth Fermin Unit #: [id number]: 1965 Dicatated By: Andrei Landeros M.D.Date of Visit:Jul 04, 2020 Onc Med Follow-up/Prog Note History of Present Illness: Mrs. Fermin is a 54-year-old female with a history of right breast mass. In November 2019 she noted a mass in her right breast. As it did not go away, she underwent mammogram which showed a mass in her right breast. She underwent ultrasound of right breast which showed a mass at 10-12:00, large irregular hypoechoic solid lesion taller than wide, measuring 3.8 x 2.1 x 4.9 cm. The mass was highly suspicious for malignancy. She also had an adjacent smaller solid satellite nodules measuring 1.9 x 1.4 x 1.2 cm and 0.9 x 0.5 x 0.6 cm mass. She then underwent ultrasound-guided core needle biopsies on 01/21/2020. The pathology reported invasive ductal carcinoma of breast. Positive in 5 out of 5 core biopsies. ER/[place] negative e.g. (less than 1% although in the report [place] was mentioned positive but it was less than 1% and went confirmed with pathology, Dr. Mckinnon said it should be negative). HER-2/cristobal negative as well. Mrs Fermin underwent right breast wide excisional lumpectomy on 02/10/2020. The final pathology report confirmed invasive tumor 5.5 x 4.5 x 3.5 cm. focally extends to the inked posterior margin; remaining margins free of invasive carcinoma. Extensive ductal carcinoma in situ with focal apocrine features, high nuclear grade, carcinoma in situ extends to within 1 mm of inked inferior margin, and remaining margins were free., Complex sclerosing lesion, extensive sclerosing adenosis, fibrocystic changes, cystic and papillary apocrine metaplasia. One sentinel lymph node was removed and examined showed no evidence of metastatic disease. She underwent reexcision of positive surgical margin on 02/24/2020 and obtain clear surgical margins. Mrs Fermin denies any history of bony pains except chronic right shoulder rotator cuff and history of right knee replacement. History of smoking, occasional alcohol use. Menarche at age 15, first at age 26, no history of hormone use. Last menstrual period was in December 2018. she was recommended treatment of her triple negative, sentinel node negative breast cancer with Adriamycin Cytoxan dose dense for 4 cycles followed by Taxotere for 12 weeks. She began her first cycle of chemotherapy on April 04, 2020. We have planned to exchange weekly Taxotere with weekly Abraxane due to significant side effects with steroids. She had significant hyperglycemia, insomnia, worsening anxiety, and mood swings. That was with 1 dose that was inadvertently taken in preparation for her first chemotherapy with Adriamycin and Cytoxan. She has completed 4 cycles of dose dense Adriamycin Cytoxan.. She was intolerant to oral steroids (she inadvertently took dexamethasone with her first cycle of AC) in that she had significant hyperglycemia, severe mood swings, insomia and severe anxiety on the day of and day after she took them.That is why instead of weekly Taxol, she was offered weekly Abraxane, 3 weeks on 1 week off x4 cycles, Which started on May 30, 2020. She was delayed on 06/13/2020 due to performance status and her mother in law's /. 'Came for follow-up, complaining of generalized weakness and fatigue, feeling like ' washed out, slept for many hours, still feeling weak and tired otherwise no fever chills, no nausea or vomiting, no diarrhea constipation, no peripheral neuropathy, no headaches blurred vision or double vision. Tolerating weekly Abraxane reasonably well Medications: ALPRAZolam 1 (1 mg) Tablet Oral t.i.d. PRN, Claritin 1 Tablet (of 10 mg) Oral at bedtime, Cymbalta 1 (30 mg) Capsule Delayed Release Particles Oral daily, HYDROcodone-Acetaminophen 1 Tablet (of 10-325 mg) Oral q 6 hours PRN, Lidocaine-Prilocaine 1 (2.5-2.5 %) Cream Topical daily PRN, LORazepam 0.5 - 1 Tablet (of 1 mg) Oral t.i.d. PRN, Methocarbamol 1 - 2 Tablet (of 750 mg) Oral t.i.d. PRN, Ondansetron HCl 1 - 2 Tablet (of 4 mg) Oral four times a day PRN, Prochlorperazine Maleate 1 Tablet (of 10 mg) Oral q 4 hours PRN, Xarelto 1 Tablet (of 15 mg) Oral b.i.d. Allergies: Latex and Penicillins. Review of Systems: Constitutional - Appetite is good and weight is stable. No fever, night sweats, or hot flashes. Energy level is fair, ENMT - No sinus congestion/drainage. No mouth sores. No sore throat or difficulty swallowing, Hematologic/Lymphatic - No abnormal bruising or bleeding, Respiratory - No shortness of breath. No cough. No pleuritic pain or hemoptysis, Cardiovascular - No angina pain. No palpitations, Gastrointestinal - Occasional nausea and vomiting. Positive for heartburn, no acid reflux. No diarrhea or constipation. No blood in the stool or black stools, Genitourinary (F) - No dysuria or hematuria. No urinary frequency. No urgency or incontinence, Musculoskeletal - Positive for joint pain, Neurologic - No headache or dizziness. No numbness or tingling. No other focal neurologic symptoms, Psychiatric - Positive for anxiety, no depression. Positive for occasional bouts of insomnia. Vital Signs: Performed on Jul 04, 2020 14:13 Height - 72.00 in Weight - 252.6 lbs (LOW) BSA - 2.35 sq.m BMI - 34.26 (HIGH) Temperature - 99.0 F (HIGH) Pulse - 104 /min (HIGH) Respiration - 24 /min BP - 145/80 mm(hg) (HIGH) O2 Sat - 96 % Pain - 7 Performance Status: 0 - Fully active, able to carry on all predisease activities without restrictions. (ECOG) Physical Examination: Respiratory - Lungs are clear, Cardiovascular - Regular rate and rhythm of heart, Gastrointestinal - Soft, bowel sounds present, Extremities - No visible edema or rash. Lab/Imaging: Test performed on Jun 27, 2020 13:24 WBC 6.6 10 3/uL RBC 3.42 10 6/uL HGB 9.8 g/dL HCT 31.4 % MCV 91.8 fL MCH 28.7 pg MCHC 31.2 g/dL RDW 15.4 % Platelet Count 349 10 3/cmm MPV 9.9 fL Neutrophils 4.75 10 3/uL Lymphocytes 0.8 10 3/uL Monocytes 0.5 10 3/uL Eosinophils 0.4 10 3/uL Basophils 0.1 10 3/uL Neutrophil % 72.4 % Lymphocyte % 12.8 % Monocyte % 7.3 % Eosinophil % 5.8 % Basophils % 0.8 % NRBC % 0 % Test performed on Jun 19, 2020 09:55 Sodium 135 mmol/L Potassium 4.0 mmol/L Chloride 101 mmol/L CO2 25 mmol/L Anion Gap 13.0 BUN 9 mg/dL Creatinine 0.7 mg/dL Cr Clearance (Est) 169.3200 mL/min eGFR 87.5 mL/min Glucose 166 mg/dL Calcium 9.6 mg/dL Protein, Total 6.7 g/dL Albumin 4.1 g/dL Globulin 2.6 g/dL Bilirubin, Total 0.3 mg/dL ALT (SGPT) 19 U/L AST (SGOT) 22 U/L Alkaline Phosphatase 91 IU/L Test performed on Jun 06, 2020 10:35 Ferritin 212 ng/mL Iron 28 mcg/dL TSH 1.01 uIU/mL Vitamin B12 > 2000 pg/mL Iron Binding Capacity (TIBC) 204 mcg/dl % Iron Saturation 13.7 % UIBC 176 mcg/dL Test performed on May 29, 2020 10:06 CBC Slide Review Slide Review Perform SLIDE REVIEW AGREES WITH AUTOMATED RESULTS ST Impression: Invasive ductal carcinoma status post right breast wide excisional lumpectomy done on 02/09/2019 final pathology report showed invasive ductal carcinoma 5.5 x 4.5 x 3.5 cm, focally extends to the inked posterior margin, extensive ductal carcinoma in situ with focal apocrine features, high nuclear grade. Followed by reexcision of often involved margin on 02/24/2020 with clear margins pT3 and 1 sentinel lymph node was examined showed no evidence of metastatic disease pNo stage IIB, ER/OK/HER-2/cristobal negative with high Ki-67 e.g. 38%. chronic right shoulder pain due to rotator cuff discussed with Mrs Fermin her disease status. She has locally advanced disease e.g. T3 lesion, status post wide excision of right breast lumpectomy/partial mastectomy with clear surgical margins and 1 sentinel lymph node was examined showed no evidence of metastatic disease, clinical stage IIB. Breast cancer prognostic profiling showed triple negative disease e.g. ER/OK/HER-2/cristobal negative. Being triple negative and locally advanced disease, patient is a candidate for adjuvant chemotherapy, as per [facility] guidelines, we'll consider dose dense Adriamycin Cytoxan e.g. every 2 weeks ???4 with Neulasta support to prevent chemotherapy-induced neutropenia. Followed by weekly Taxol ???12, followed by postlumpectomy radiation therapy. As discussed previously she had significant hyperglycemia, anxiety, insomnia and palpitations with an inadvertently taken steroid premed prior to her chemotherapy today. It was felt that she wouold not tolerate the steroids and we did pursue obtaining Abraxane for her. Ms Fermin began her first cycles of Abraxane on 05/30/2020 She has now completed 4 cycles of Adriamycin Cytoxan. She has experienced expected side effects but overall has tolerated it well. She began her taxane portion of her treatment plan on 05/30/2020. Plan: Discussed with patient regarding her labs white blood count 3.7 hemoglobin 10.8 hematocrit 35.6 platelets 383,000 ANC 2700 CMP within normal limit except glucose 148 Clinically, patient is doing reasonably well, tolerating adjuvant chemotherapy with weekly Abraxane, but now with progressive generalized weakness and fatigue, clinically it appears patient tolerated weekly 2 doses well but with her dose she has significant side effects, in that case we will consider changing her chemotherapy schedule to weekly x2 followed by a week off, to complete total 12 weekly doses of taxane therapy. Because of progressive symptoms, we will hold her chemotherapy today, patient will return to clinic in 1 week with CBC CMP to start her next dose of Abraxane. Signed By: Andrei Landeros M.D. <<Signature on File>>
[2020-07-10 09:39] LABS: Basophils # 0.1 10^3/uL (0.0-0.1); Basophils % 0.9 %; Eosinophils # 0.1 10^3/uL (0.0-0.8); Hematocrit 38.1 % (37.0-47.0); Hemoglobin 11.7 g/dL (11.5-15.3); Lymphocytes % 18.1 %; Mean Corpuscular HGB Conc 30.7 g/dL (30.0-36.0); Mean Corpuscular Hemoglobin 27.5 pg (28.0-34.0); Mean Corpuscular Volume 89.4 fL (81-99); Mean Platelet Volume 9.6 fL (7.4-10.4); Monocytes # 0.6 10^3/uL (0.2-0.9); Monocytes % 10.3 %; Neutrophils # 3.79 10^3/uL (1.8-7.7); Neutrophils % 68.5 %; Nucleated Red Blood Cells % 0 %; Platelet Count 375 10^3/cmm (130-400); Red Blood Count 4.26 10^6/uL (4.1-5.3); Red Cell Distribution Width 15.4 % (12.1-15.1); White Blood Count 5.5 10^3/uL (4.0-10.0)
[2020-07-10 09:58] LABS: Alanine Aminotransferase 25 U/L (0-33); Albumin Level 4.2 g/dL (3.5-5.2); Alkaline Phosphatase 92 IU/L (35-105); Anion Gap 14.1 (5-19); Aspartate Amino Transferase 20 U/L (0-32); Blood Urea Nitrogen 14 mg/dL (6-20); Calcium 8.6 mg/dL (8.5-10.5); Carbon Dioxide 24 mmol/L (22-29); Chloride 103 mmol/L (98-107); Globulin 2.8 g/dL (1.3-4.6); Glomerular Filtration Rate 87.5 mL/min (90-130); Glucose 145 mg/dL (65-115); Osmolality Calculated 283 mOsm/kg (285-295); Potassium 4.1 mmol/L (3.5-5.1); Sodium 137 mmol/L (136-145); Total Bilirubin 0.3 mg/dL (0.15-1.2)
[2020-07-11] MEDS: sodium chloride 0.9% 250 ML 30 ML IV (09:50)
--- NOTE | 2020-07-15 18:17 | ONC FU_ITS ---
[facility] Patient Note Patient: Lisbeth Fermin Unit #: [id number]: 1965 Dictated By: Ghada CaoDate of Visit: Jul 11, 2020 Onc MED Follow-Up/Prog Note Chief Complaint: Right breast cancer History of Present Illness: Mrs. Fermin is a 54-year-old female with a history of right breast mass. In November 2019 she noted a mass in her right breast. As it did not go away, she underwent mammogram which showed a mass in her right breast. She underwent ultrasound of right breast which showed a mass at 10-12:00, large irregular hypoechoic solid lesion taller than wide, measuring 3.8 x 2.1 x 4.9 cm. The mass was highly suspicious for malignancy. She also had an adjacent smaller solid satellite nodules measuring 1.9 x 1.4 x 1.2 cm and 0.9 x 0.5 x 0.6 cm mass. She then underwent ultrasound-guided core needle biopsies on 01/21/2020. The pathology reported invasive ductal carcinoma of breast. Positive in 5 out of 5 core biopsies. ER/[place] negative e.g. (less than 1% although in the report [place] was mentioned positive but it was less than 1% and went confirmed with pathology, Dr. Mckinnon said it should be negative). HER-2/cristobal negative as well. Mrs Fermin underwent right breast wide excisional lumpectomy on 02/10/2020. The final pathology report confirmed invasive tumor 5.5 x 4.5 x 3.5 cm. focally extends to the inked posterior margin; remaining margins free of invasive carcinoma. Extensive ductal carcinoma in situ with focal apocrine features, high nuclear grade, carcinoma in situ extends to within 1 mm of inked inferior margin, and remaining margins were free., Complex sclerosing lesion, extensive sclerosing adenosis, fibrocystic changes, cystic and papillary apocrine metaplasia. One sentinel lymph node was removed and examined showed no evidence of metastatic disease. She underwent reexcision of positive surgical margin on 02/24/2020 and obtain clear surgical margins. Mrs Fermin denies any history of bony pains except chronic right shoulder rotator cuff and history of right knee replacement. History of smoking, occasional alcohol use. Menarche at age 15, first at age 26, no history of hormone use. Last menstrual period was in December 2018. Mrs Fermin was offered treatment of her triple negative, sentinel node negative breast cancer with Adriamycin Cytoxan dose dense for 4 cycles followed by Taxotere for 12 weeks. She began her first cycle of chemotherapy on April 04, 2020. We have planned to exchange weekly Taxotere with weekly Abraxane due to significant side effects with steroids. She had significant hyperglycemia, insomnia, worsening anxiety, and mood swings. That was with 1 dose that was inadvertently taken in preparation for her first chemotherapy with Adriamycin and Cytoxan. She has completed 4 cycles of dose dense Adriamycin Cytoxan.. She was intolerant to oral steroids (she inadvertently took dexamethasone with her first cycle of AC) in that she had significant hyperglycemia, severe mood swings, insomnia and severe anxiety on the day of and day after she took them. That is why instead of weekly Taxol, she was offered weekly Abraxane, 3 weeks on 1 week off x 4 cycles, Which started on May 30, 2020. She completed 2 weekly doses from 05/30 to 06/06/2020. She was delayed on 06/13/2020 due to performance status and her mother in law's /. She resumed treatment on 06/20/2020 and completed 2 weekly cycles. Ms. Fermin is here today for follow-up. She presented last week for treatment but her treatment was held due to performance status. She was held last week due to progressive generalized weakness and fatigue. She states today she is feeling much better. She is working from home about 60% of time 4 days a weeks. She has had some generalized bone aches. She states they are about the same as what they have been but no worse. She states her appetite is good. Energy is fair but not at her normal. She denies any mouth sores, sore throat or difficulty swallowing. She denies any vomiting, diarrhea or constipation. She has had some intermittent nausea but states is well controlled with antiemetics as needed. Her ECOG is 1. Past Medical History: Anxiety Arthritis Depression History of right breast cancer Migraine headaches Past Surgical History: Breast biopsy Cervical fusion Left knee arthroscopy Right breast lumpectomy Right foot tendon avulsion Right total knee replacement Allergies: Latex and Penicillins. Medications: ALPRAZolam 1 (1 mg) Tablet Oral t.i.d. PRN Claritin 1 Tablet (of 10 mg) Oral at bedtime Cymbalta 1 (30 mg) Capsule Delayed Release Particles Oral daily HYDROcodone-Acetaminophen 1 Tablet (of 10-325 mg) Oral q 6 hours PRN Lidocaine-Prilocaine 1 (2.5-2.5 %) Cream Topical daily PRN LORazepam 0.5 - 1 Tablet (of 1 mg) Oral t.i.d. PRN Methocarbamol 1 - 2 Tablet (of 750 mg) Oral t.i.d. PRN Ondansetron HCl 1 - 2 Tablet (of 4 mg) Oral four times a day PRN Prochlorperazine Maleate 1 Tablet (of 10 mg) Oral q 4 hours PRN Xarelto 1 Tablet (of 15 mg) Oral b.i.d. Family History: Ms. Fermin's mother is alive: colon cancer. Ms. Fermin's father at age 71: colon cancer. 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 Ms. Fermin quit smoking 3 years ago but had smoked 1.0 pack/day for 25 years. She drinks occasionally. She consumes 2 days/week. Ms. Fermin reports the following support systems: lives with spouse, significant other, family, or friends, lives in own house, supportive family/friends willing to assist with needs, and adequate transportation available for expected visits. Her diet consists of regular meals. She indicates her activity level as: regular exercise. Review Of Symptoms: Constitutional Denies fevers, chills, night sweats or weight loss. Has fatigue. Slept 14 hours straight one day last week. Allergic/Immunologic seasonal allergies-cottonwood trees. Eyes Denies significant visual changes. No diplopia. No amaurosis. ENMT Denies changes in hearing, sore throat, mouth sores, difficulty or changes in swallowing ability, and/or sinus drainage. Endocrine No diabetes, thyroid disease or hormone replacement. Denies hot flashes or night sweats. Hematologic/Lymphatic Denies easy bruising or bleeding. The patient denies any tender or palpable lymph nodes. Breasts no new concerns Respiratory Denies dyspnea on exertion, chest pain, cough or hemoptysis. Denies orthopnea. Cardiovascular Denies anginal chest pain, palpitations or orthopnea. Gastrointestinal Denies nausea, diarrhea, GI bleeding, or constipation. Denies change in bowel habits and/or stool color or early satiety. Genitourinary (F) No hematuria, hesitancy, incontinence, vaginal bleeding, discharge or other problems with urination. Musculoskeletal Denies joint pain, swelling or redness. No decreased range of motion. Integumentary Denies chronic rashes, inflammation, ulcerations or skin changes. Neurologic Denies headache, blurred vision, and no areas of focal weakness or numbness. Normal gait. No sensory problems. Psychiatric Denies insomnia, depression, monae or mood swings. Vital Signs: Performed on Jul 11, 2020 08:09 Height - 72.00 in Weight - 246.4 lbs (LOW) BSA - 2.33 sq.m BMI - 33.42 (HIGH) Temperature - 97.0 F (LOW) Pulse - 108 /min (HIGH) Respiration - 18 /min BP - 153/108 mm(hg) (HIGH) O2 Sat - 98 % Pain - 7,1 - No physically strenuous activity, but ambulatory and able to carry out light or sedentary work (e.g. office work, light house work). (ECOG) Physical Examination: Constitutional Alert, oriented, no acute distress. Skin pink, warm and dry. Alopecia. Head Normocephalic; atraumatic. Eyes Conjunctivae and sclerae are clear and without icterus. Pupils are reactive and equal. Neck Supple without masses or thyromegaly. No jugular venous distension. Hematologic/Lymphatic No petechiae or purpura. No tender or palpable lymph nodes in the cervical or supraclavicular areas. Respiratory Lungs are clear to auscultation without rhonchi or wheezing. Cardiovascular Regular rate and rhythm of heart without murmurs,clicks, gallops or rubs. Chest Left venous access insertion site is unremarkable. Abdomen Non-tender, non-distended, no masses or ascites. No guarding or rebound tenderness. No pulsatile masses. Back/Spine Non-tender to palpation. Extremities No visible deformities, no cyanosis, clubbing or edema. Musculoskeletal No tenderness or swelling, normal range of motion without obvious weakness. Integumentary No rashes or lesions. Neurologic No sensory or motor deficits, normal cerebellar function, normal gait. Psychiatric Alert and oriented times three. Coherent speech. Verbalizes understanding of our discussions today. Laboratory:Test performed on Jul 10, 2020 09:12 Sodium 137 mmol/L Potassium 4.1 mmol/L Chloride 103 mmol/L CO2 24 mmol/L Anion Gap 14.1 BUN 14 mg/dL Creatinine 0.7 mg/dL Cr Clearance (Est) 169.3200 mL/min eGFR 87.5 mL/min Glucose 145 mg/dL Calcium 8.6 mg/dL Protein, Total 7.0 g/dL Albumin 4.2 g/dL Globulin 2.8 g/dL Bilirubin, Total 0.3 mg/dL ALT (SGPT) 25 U/L AST (SGOT) 20 U/L Alkaline Phosphatase 92 IU/L WBC 5.5 10 3/uL RBC 4.26 10 6/uL HGB 11.7 g/dL HCT 38.1 % MCV 89.4 fL MCH 27.5 pg MCHC 30.7 g/dL RDW 15.4 % Platelet Count 375 10 3/cmm MPV 9.6 fL Neutrophils 3.79 10 3/uL Lymphocytes 1.0 10 3/uL Monocytes 0.6 10 3/uL Eosinophils 0.1 10 3/uL Basophils 0.1 10 3/uL Neutrophil % 68.5 % Lymphocyte % 18.1 % Monocyte % 10.3 % Eosinophil % 2.0 % Basophils % 0.9 % NRBC % 0 % Test performed on Jun 06, 2020 10:35 Ferritin 212 ng/mL Iron 28 mcg/dL TSH 1.01 uIU/mL Vitamin B12 > 2000 pg/mL Iron Binding Capacity (TIBC) 204 mcg/dl % Iron Saturation 13.7 % UIBC 176 mcg/dL Test performed on May 29, 2020 10:06 CBC Slide Review Slide Review Perform SLIDE REVIEW AGREES WITH AUTOMATED RESULTS ST Impression: Invasive ductal carcinoma status post right breast wide excisional lumpectomy done on 02/09/2019 final pathology report showed invasive ductal carcinoma 5.5 x 4.5 x 3.5 cm, focally extends to the inked posterior margin, extensive ductal carcinoma in situ with focal apocrine features, high nuclear grade. Followed by reexcision of often involved margin on 02/24/2020 with clear margins pT3 and 1 sentinel lymph node was examined showed no evidence of metastatic disease pNo stage IIB, ER/[place]/HER-2/cristobal negative with high Ki-67 e.g. 38%. chronic right shoulder pain due to rotator cuff Dr Landeros discussed with Mrs Fermin her disease status. She has locally advanced disease e.g. T3 lesion, status post wide excision of right breast lumpectomy/partial mastectomy with clear surgical margins and 1 sentinel lymph node was examined showed no evidence of metastatic disease, clinical stage IIB. Breast cancer prognostic profiling showed triple negative disease e.g. ER/[place]/HER-2/cristobal negative. Being triple negative and locally advanced disease, Mrs Fermin wais a candidate for adjuvant chemotherapy. As per [facility] guidelines, dense Adriamycin Cytoxan e.g. every 2 weeks ???4 with Neulasta support to prevent chemotherapy-induced neutropenia-Followed by weekly Taxol ???12, followed by postlumpectomy radiation therapy was the initial treatment plan. As discussed previously she had significant hyperglycemia, anxiety, insomnia and palpitations with an inadvertently taken steroid premed prior to her chemotherapy on cycle 1 day 1. It was felt that she wouold not tolerate the steroids required for the Taxol and we did pursue obtaining Abraxane for her. She has now completed 4 cycles of Adriamycin Cytoxan. She has experienced expected side effects but overall has tolerated it well. She began her taxane portion of her treatment plan on 05/30/2020. She is only been able to complete 2 consecutive weeks her cycle. She most likely change her cycles to 2 out of every 3 weeks for total of [address] Landeros's last note. She has had trouble with performance status even with 2 consecutive weeks. The week off has dramatically improved performance status and she is tolerating chemo well overall all 2 weeks on 1 week off. Plan: 1. Proceed with week 5/12 of Abraxane. 2. Continue previous premedications as her nausea was appropriately controlled. Continue Protonix 40 mg at hs for acid reflux. May add Scopalamine patch if need antiemetic whille at work. (Compazine knocks her out and Zofran causes migraines). 3. Labs from today were reviewed in detail and discussed with Mrs. Fermin and a copy was given to her. WBC 5.5, hemoglobin 11.7, platelets 375,000 ANC is 3800. 4. On April 14, 2020, a venogram of left upper extremity was obtained for evaluation of unilateral edema. Continue Xarelto for unilateral upper extremity edema. Doppler was negative for clot but the swellling did resolve with the addition of Xarelto. 6. I have asked her to try taking dexamethasone 4 mg starting on for 1-2 days and then 2 mg for 1-2 days (if needed) after treatment for significant fatigue and bone pain. 7. We will see her back in 1 week for week 6 of 12 Abraxane. She will be due for 1 week off after week 6. See below. 8. It was opted to change her 12 weeks of taxane to weekly Abraxane given that she had significant hyperglycemia as she inadvertently took her steroid premedication for the Adriamycin/Cytoxan. Her random glucose today was 105 compared to 282 when she took the steroids. She also developed insomnia, anxiety and palpitations with the steroids. Dr. Landeros has recommended pursuing the Abraxane and Mrs. Fermin agrees. Her treatment plan currently is 2 weeks on and 1 week off due to tolerance of the chemotherapy. 9. Mrs. Serrano was instructed to contact us in the interim should questions or problems arise. Signed By: Ghada Cao-, CNP Andrei Landeros MD <<Signature on File>>
[2020-07-17] MEDS: alteplase 1 mg/mL SDV 2 mL 2 MG IV (09:40)
[2020-07-17 10:13] LABS: Basophils # 0.1 10^3/uL (0.0-0.1); Basophils % 1.3 %; Eosinophils % 0.9 %; Hematocrit 34.3 % (37.0-47.0); Hemoglobin 10.5 g/dL (11.5-15.3); Lymphocytes # 0.9 10^3/uL (0.8-4.8); Lymphocytes % 19.6 %; Mean Corpuscular HGB Conc 30.6 g/dL (30.0-36.0); Mean Corpuscular Hemoglobin 27.4 pg (28.0-34.0); Mean Corpuscular Volume 89.6 fL (81-99); Mean Platelet Volume 9.8 fL (7.4-10.4); Monocytes # 0.2 10^3/uL (0.2-0.9); Monocytes % 5.1 %; Neutrophils # 3.26 10^3/uL (1.8-7.7); Neutrophils % 72.7 %; Nucleated Red Blood Cells % 0 %; Platelet Count 295 10^3/cmm (130-400); Red Blood Count 3.83 10^6/uL (4.1-5.3); Red Cell Distribution Width 14.6 % (12.1-15.1); White Blood Count 4.5 10^3/uL (4.0-10.0)
[2020-07-17 10:32] LABS: Alanine Aminotransferase 22 U/L (0-33); Albumin Level 3.7 g/dL (3.5-5.2); Alkaline Phosphatase 85 IU/L (35-105); Anion Gap 10.2 (5-19); Aspartate Amino Transferase 17 U/L (0-32); Blood Urea Nitrogen 11 mg/dL (6-20); Calcium 8.8 mg/dL (8.5-10.5); Carbon Dioxide 28 mmol/L (22-29); Chloride 103 mmol/L (98-107); Globulin 2.4 g/dL (1.3-4.6); Glomerular Filtration Rate 87.5 mL/min (90-130); Glucose 110 mg/dL (65-115); Osmolality Calculated 281 mOsm/kg (285-295); Potassium 4.2 mmol/L (3.5-5.1); Sodium 137 mmol/L (136-145); Total Bilirubin 0.2 mg/dL (0.15-1.2); Total Protein 6.1 g/dL (6.6-8.7)
== END 2020-07-17 23:59 | disposition home or self-care (01) ==
LOC: ONCMED 05:34
PROVIDERS: Internal Medicine Hematology & Oncology; PCP Internal Medicine; Visit Provider Nurse Practitioner
DX: Z51.11 Encounter for antineoplastic chemotherapy (principal); C50.411 Malignant neoplasm of upper-outer quadrant of right female breast; Z17.1 Estrogen receptor negative status [ER-]; F32.9 Major depressive disorder, single episode, unspecified; F41.9 Anxiety disorder, unspecified; G43.909 Migraine, unspecified, not intractable, without status migrainosus
CPT/HCPCS: 36415; 36591; 36593; 80053; 85025; 96367; 96374; 96375; 96413; 99214; J1100; J2469; J2997; J3490; J7050; J9264

== ENCOUNTER 2020-08-08 05:33 | Outpatient (RCR) | payer MEDICAID, SELFPAY ==
--- NOTE | 2020-07-18 09:11 | ONC FU_ITS ---
[facility] Patient Note Patient: Lisbeth Fermin Unit #: [id number]: 1965 Dictated By: Ghada CaoDate of Visit: Jul 18, 2020 Onc MED Follow-Up/Prog Note Chief Complaint: Right breast cancer History of Present Illness: Mrs. Fermin is a 54-year-old female with a history of right breast mass. In November 2019 she noted a mass in her right breast. As it did not go away, she underwent mammogram which showed a mass in her right breast. She underwent ultrasound of right breast which showed a mass at 10-12:00, large irregular hypoechoic solid lesion taller than wide, measuring 3.8 x 2.1 x 4.9 cm. The mass was highly suspicious for malignancy. She also had an adjacent smaller solid satellite nodules measuring 1.9 x 1.4 x 1.2 cm and 0.9 x 0.5 x 0.6 cm mass. She then underwent ultrasound-guided core needle biopsies on 01/21/2020. The pathology reported invasive ductal carcinoma of breast. Positive in 5 out of 5 core biopsies. ER/HI negative e.g. (less than 1% although in the report HI was mentioned positive but it was less than 1% and went confirmed with pathology, Dr. Mckinnon said it should be negative). HER-2/cristobal negative as well. Mrs Fermin underwent right breast wide excisional lumpectomy on 02/10/2020. The final pathology report confirmed invasive tumor 5.5 x 4.5 x 3.5 cm. focally extends to the inked posterior margin; remaining margins free of invasive carcinoma. Extensive ductal carcinoma in situ with focal apocrine features, high nuclear grade, carcinoma in situ extends to within 1 mm of inked inferior margin, and remaining margins were free., Complex sclerosing lesion, extensive sclerosing adenosis, fibrocystic changes, cystic and papillary apocrine metaplasia. One sentinel lymph node was removed and examined showed no evidence of metastatic disease. She underwent reexcision of positive surgical margin on 02/24/2020 and obtain clear surgical margins. Mrs Fermin denies any history of bony pains except chronic right shoulder rotator cuff and history of right knee replacement. History of smoking, occasional alcohol use. Menarche at age 15, first at age 26, no history of hormone use. Last menstrual period was in December 2018. Mrs Fermin was offered treatment of her triple negative, sentinel node negative breast cancer with Adriamycin Cytoxan dose dense for 4 cycles followed by Taxotere for 12 weeks. She began her first cycle of chemotherapy on April 04, 2020. We have planned to exchange weekly Taxotere with weekly Abraxane due to significant side effects with steroids. She had significant hyperglycemia, insomnia, worsening anxiety, and mood swings. That was with 1 dose that was inadvertently taken in preparation for her first chemotherapy with Adriamycin and Cytoxan. She has completed 4 cycles of dose dense Adriamycin Cytoxan.. She was intolerant to oral steroids (she inadvertently took dexamethasone with her first cycle of AC) in that she had significant hyperglycemia, severe mood swings, insomnia and severe anxiety on the day of and day after she took them. That is why instead of weekly Taxol, she was offered weekly Abraxane, 3 weeks on 1 week off x 4 cycles, Which started on May 30, 2020. She completed 2 weekly doses from 05/30 to 06/06/2020. She was delayed on 06/13/2020 due to performance status and her mother in law's /. She resumed treatment on 06/20/2020 and completed 2 weekly cycles. Ms. Fermin is here today for follow-up. She is on a 2 week on and 1 week Abraxane treatment plan with a goal of 12 treatments in total. Today is # 6. She states she is feeling good/ ok today. 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 She states he is in quarantine and she was not directly exposed to him. She denies any fever or chills, cough or shortness of breath. She states her nausea is better overall and she does not need any other treatment for it at home. She states her bowels and bladder are good as well. She has some persistent but not worsening neuropathy in her feet, but tends to get better on her week off. She denies any pain. Her ECOG is 0. Past Medical History: Anxiety Arthritis Depression History of right breast cancer Migraine headaches Past Surgical History: Breast biopsy Cervical fusion Left knee arthroscopy Right breast lumpectomy Right foot tendon avulsion Right total knee replacement Allergies: Latex and Penicillins. Medications: ALPRAZolam 1 (1 mg) Tablet Oral t.i.d. PRN Claritin 1 Tablet (of 10 mg) Oral at bedtime Cymbalta 1 (30 mg) Capsule Delayed Release Particles Oral daily HYDROcodone-Acetaminophen 1 Tablet (of 10-325 mg) Oral q 6 hours PRN Lidocaine-Prilocaine 1 (2.5-2.5 %) Cream Topical daily PRN LORazepam 0.5 - 1 Tablet (of 1 mg) Oral t.i.d. PRN Methocarbamol 1 - 2 Tablet (of 750 mg) Oral t.i.d. PRN Ondansetron HCl 1 - 2 Tablet (of 4 mg) Oral four times a day PRN Prochlorperazine Maleate 1 Tablet (of 10 mg) Oral q 4 hours PRN Xarelto 1 Tablet (of 15 mg) Oral b.i.d. Family History: Ms. Fermin's mother is alive: colon cancer. Ms. Fermin's father at age 71: colon cancer. 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 Ms. Fermin quit smoking 3 years ago but had smoked 1.0 pack/day for 25 years. She drinks occasionally. She consumes 2 days/week. Ms. Fermin reports the following support systems: lives with spouse, significant other, family, or friends, lives in own house, supportive family/friends willing to assist with needs, and adequate transportation available for expected visits. Her diet consists of regular meals. She indicates her activity level as: regular exercise. Review Of Symptoms: Constitutional Denies fevers, chills, night sweats or weight loss. Has fatigue but some better this week. Working mostly from home. Allergic/Immunologic seasonal allergies-cottonwood trees. Eyes Denies significant visual changes. No diplopia. No amaurosis. ENMT Denies changes in hearing, sore throat, mouth sores, difficulty or changes in swallowing ability, and/or sinus drainage. Endocrine No diabetes, thyroid disease or hormone replacement. Denies hot flashes or night sweats. Hematologic/Lymphatic Denies easy bruising or bleeding. The patient denies any tender or palpable lymph nodes. Breasts no new concerns Respiratory Denies dyspnea on exertion, chest pain, cough or hemoptysis. Denies orthopnea. Cardiovascular Denies anginal chest pain, palpitations or orthopnea. Gastrointestinal Denies nausea, diarrhea, GI bleeding, or constipation. Denies change in bowel habits and/or stool color or early satiety. Genitourinary (F) No hematuria, hesitancy, incontinence, vaginal bleeding, discharge or other problems with urination. Musculoskeletal Denies joint pain, swelling or redness. No decreased range of motion. Integumentary Denies chronic rashes, inflammation, ulcerations or skin changes. Neurologic Denies headache, blurred vision, and no areas of focal weakness or numbness. Normal gait. No sensory problems. Psychiatric Denies insomnia, depression, monae or mood swings. Vital Signs: Performed on Jul 18, 2020 08:46 Height - 72.00 in Weight - 254.4 lbs (HIGH) BSA - 2.36 sq.m BMI - 34.50 (HIGH) Temperature - 96.0 F (LOW) Pulse - 92 /min Respiration - 17 /min BP - 146/90 mm(hg) (HIGH) O2 Sat - 97 % Pain - 6,0 - Fully active, able to carry on all predisease activities without restrictions. (ECOG) Physical Examination: Constitutional Alert, oriented, no acute distress. Skin pink, warm and dry. Alopecia. Head Normocephalic; atraumatic. Eyes Conjunctivae and sclerae are clear and without icterus. Pupils are reactive and equal. Neck Supple without masses or thyromegaly. No jugular venous distension. Hematologic/Lymphatic No petechiae or purpura. No tender or palpable lymph nodes in the cervical or supraclavicular areas. Respiratory Lungs are clear to auscultation without rhonchi or wheezing. Cardiovascular Regular rate and rhythm of heart without murmurs,clicks, gallops or rubs. Chest Left venous access insertion site is unremarkable. Abdomen Non-tender, non-distended, no masses or ascites. No guarding or rebound tenderness. No pulsatile masses. Back/Spine Non-tender to palpation. Extremities No visible deformities, no cyanosis, clubbing or edema. Musculoskeletal No tenderness or swelling, normal range of motion without obvious weakness. Integumentary No rashes or lesions. Neurologic No sensory or motor deficits, normal cerebellar function, normal gait. Psychiatric Alert and oriented times three. Coherent speech. Verbalizes understanding of our discussions today. Laboratory:Test performed on Jul 10, 2020 09:12 Sodium 137 mmol/L Potassium 4.1 mmol/L Chloride 103 mmol/L CO2 24 mmol/L Anion Gap 14.1 BUN 14 mg/dL Creatinine 0.7 mg/dL Cr Clearance (Est) 169.3200 mL/min eGFR 87.5 mL/min Glucose 145 mg/dL Calcium 8.6 mg/dL Protein, Total 7.0 g/dL Albumin 4.2 g/dL Globulin 2.8 g/dL Bilirubin, Total 0.3 mg/dL ALT (SGPT) 25 U/L AST (SGOT) 20 U/L Alkaline Phosphatase 92 IU/L WBC 5.5 10 3/uL RBC 4.26 10 6/uL HGB 11.7 g/dL HCT 38.1 % MCV 89.4 fL MCH 27.5 pg MCHC 30.7 g/dL RDW 15.4 % Platelet Count 375 10 3/cmm MPV 9.6 fL Neutrophils 3.79 10 3/uL Lymphocytes 1.0 10 3/uL Monocytes 0.6 10 3/uL Eosinophils 0.1 10 3/uL Basophils 0.1 10 3/uL Neutrophil % 68.5 % Lymphocyte % 18.1 % Monocyte % 10.3 % Eosinophil % 2.0 % Basophils % 0.9 % NRBC % 0 % Test performed on Jun 06, 2020 10:35 Ferritin 212 ng/mL Iron 28 mcg/dL TSH 1.01 uIU/mL Vitamin B12 > 2000 pg/mL Iron Binding Capacity (TIBC) 204 mcg/dl % Iron Saturation 13.7 % UIBC 176 mcg/dL Test performed on May 29, 2020 10:06 CBC Slide Review Slide Review Perform SLIDE REVIEW AGREES WITH AUTOMATED RESULTS ST Impression: Invasive ductal carcinoma status post right breast wide excisional lumpectomy done on 02/09/2019 final pathology report showed invasive ductal carcinoma 5.5 x 4.5 x 3.5 cm, focally extends to the inked posterior margin, extensive ductal carcinoma in situ with focal apocrine features, high nuclear grade. Followed by reexcision of often involved margin on 02/24/2020 with clear margins pT3 and 1 sentinel lymph node was examined showed no evidence of metastatic disease pNo stage IIB, ER/HI/HER-2/cristobal negative with high Ki-67 e.g. 38%. chronic right shoulder pain due to rotator cuff Dr Landeros discussed with Mrs Fermin her disease status. She has locally advanced disease e.g. T3 lesion, status post wide excision of right breast lumpectomy/partial mastectomy with clear surgical margins and 1 sentinel lymph node was examined showed no evidence of metastatic disease, clinical stage IIB. Breast cancer prognostic profiling showed triple negative disease e.g. ER/HI/HER-2/cristobal negative. Being triple negative and locally advanced disease, Mrs Fermin wais a candidate for adjuvant chemotherapy. As per NCCN guidelines, dense Adriamycin Cytoxan e.g. every 2 weeks ???4 with Neulasta support to prevent chemotherapy-induced neutropenia-Followed by weekly Taxol ???12, followed by postlumpectomy radiation therapy was the initial treatment plan. As discussed previously she had significant hyperglycemia, anxiety, insomnia and palpitations with an inadvertently taken steroid premed prior to her chemotherapy on cycle 1 day 1. It was felt that she wouold not tolerate the steroids required for the Taxol and we did pursue obtaining Abraxane for her. She has now completed 4 cycles of Adriamycin Cytoxan. She has experienced expected side effects but overall has tolerated it well. She began her taxane portion of her treatment plan on 05/30/2020. She is only been able to complete 2 consecutive weeks her cycle. She most likely change her cycles to 2 out of every 3 weeks for total of [address] Landeros's last note. She has had trouble with performance status even with 2 consecutive weeks. The week off has dramatically improved performance status and she is tolerating chemo well overall all 2 weeks on 1 week off. Plan: 1. Proceed with week 6/12 of Abraxane. 2. Continue previous premedications as her nausea was appropriately controlled. Continue Protonix 40 mg at hs for acid reflux. May add Scopalamine patch if need antiemetic whille at work. (Compazine knocks her out and Zofran causes migraines). 3. Labs from 07/17/2020 were reviewed in detail and discussed with Mrs. Fermin and a copy was given to her. WBC 4.5, hemoglobin 10.5, platelets 295,000 ANC is 3300. 4. On April 14, 2020, a venogram of left upper extremity was obtained for evaluation of unilateral edema. Continue Xarelto for unilateral upper extremity edema. Doppler was negative for clot but the swellling did resolve with the addition of Xarelto. 6. She may try taking dexamethasone 4 mg starting on for 1-2 days and then 2 mg for 1-2 days (if needed) after treatment for significant fatigue and bone pain. 7. We will see her back in 2 week for week 7 of 12 Abraxane. 8. It was opted to change her 12 weeks of taxane to weekly Abraxane given that she had significant hyperglycemia as she inadvertently took her steroid premedication for the Adriamycin/Cytoxan. Her random glucose was 105 compared to 282 when she took the steroids. She also developed insomnia, anxiety and palpitations with the steroids. Dr. Landeros has recommended pursuing the Abraxane and Mrs. Fermin agrees. Her treatment plan currently is 2 weeks on and 1 week off due to tolerance of the chemotherapy. 9. Mrs. Serrano was instructed to contact us in the interim should questions or problems arise. Signed By: Ghada Cao-, CNP Andrei Landeros MD <<Signature on File>>
[2020-07-18] MEDS: sodium chloride 0.9% 250 ML 999 ML IV (09:27)
[2020-07-31 10:45] LABS: Eosinophils # 0.1 10^3/uL (0.0-0.8); Eosinophils % 1.6 %; Hemoglobin 11.7 g/dL (11.5-15.3); Lymphocytes % 26.2 %; Mean Corpuscular HGB Conc 30.8 g/dL (30.0-36.0); Mean Corpuscular Hemoglobin 27.6 pg (28.0-34.0); Mean Corpuscular Volume 89.6 fL (81-99); Mean Platelet Volume 9.9 fL (7.4-10.4); Monocytes # 0.5 10^3/uL (0.2-0.9); Monocytes % 14.2 %; Neutrophils # 2.17 10^3/uL (1.8-7.7); Nucleated Red Blood Cells % 0 %; Platelet Count 307 10^3/cmm (130-400); Red Blood Count 4.24 10^6/uL (4.1-5.3); Red Cell Distribution Width 15.1 % (12.1-15.1); White Blood Count 3.8 10^3/uL (4.0-10.0)
--- NOTE | 2020-08-06 21:17 | ONC FU_ITS ---
[facility] Patient Note Patient: Lisbeth Fermin Unit #: [id number]: [id number] Dictated By: Ghada CaoDate of Visit: Aug 01, 2020 Onc MED Follow-Up/Prog Note Chief Complaint: Right breast cancer History of Present Illness: Mrs. Fermin is a 54-year-old female with a history of right breast mass. In November 2019 she noted a mass in her right breast. As it did not go away, she underwent mammogram which showed a mass in her right breast. She underwent ultrasound of right breast which showed a mass at 10-12:00, large irregular hypoechoic solid lesion taller than wide, measuring 3.8 x 2.1 x 4.9 cm. The mass was highly suspicious for malignancy. She also had an adjacent smaller solid satellite nodules measuring 1.9 x 1.4 x 1.2 cm and 0.9 x 0.5 x 0.6 cm mass. She then underwent ultrasound-guided core needle biopsies on 01/21/2020. The pathology reported invasive ductal carcinoma of breast. Positive in 5 out of 5 core biopsies. ER/NH negative e.g. (less than 1% although in the report NH was mentioned positive but it was less than 1% and went confirmed with pathology, Dr. Mckinnon said it should be negative). HER-2/cristobal negative as well. Mrs Fermin underwent right breast wide excisional lumpectomy on 02/10/2020. The final pathology report confirmed invasive tumor 5.5 x 4.5 x 3.5 cm. focally extends to the inked posterior margin; remaining margins free of invasive carcinoma. Extensive ductal carcinoma in situ with focal apocrine features, high nuclear grade, carcinoma in situ extends to within 1 mm of inked inferior margin, and remaining margins were free., Complex sclerosing lesion, extensive sclerosing adenosis, fibrocystic changes, cystic and papillary apocrine metaplasia. One sentinel lymph node was removed and examined showed no evidence of metastatic disease. She underwent reexcision of positive surgical margin on 02/24/2020 and obtain clear surgical margins. Mrs Fermin denies any history of bony pains except chronic right shoulder rotator cuff and history of right knee replacement. History of smoking, occasional alcohol use. Menarche at age 15, first at age 26, no history of hormone use. Last menstrual period was in December 2018. Mrs Fermin was offered treatment of her triple negative, sentinel node negative breast cancer with Adriamycin Cytoxan dose dense for 4 cycles followed by Taxotere for 12 weeks. She began her first cycle of chemotherapy on April 04, 2020. We have planned to exchange weekly Taxotere with weekly Abraxane due to significant side effects with steroids. She had significant hyperglycemia, insomnia, worsening anxiety, and mood swings. That was with 1 dose that was inadvertently taken in preparation for her first chemotherapy with Adriamycin and Cytoxan. She has completed 4 cycles of dose dense Adriamycin Cytoxan.. She was intolerant to oral steroids (she inadvertently took dexamethasone with her first cycle of AC) in that she had significant hyperglycemia, severe mood swings, insomnia and severe anxiety on the day of and day after she took them. That is why instead of weekly Taxol, she was offered weekly Abraxane, 3 weeks on 1 week off x 4 cycles, Which started on May 30, 2020. She completed 2 weekly doses from 05/30 to 06/06/2020. She was delayed on 06/13/2020 due to performance status and her mother in law's /. She resumed treatment on 06/20/2020 and completed 2 weekly cycles. Ms. Fermin is here today for follow-up. She is on a 2 week on and 1 week Abraxane treatment plan with a goal of 12 treatments in total. Today is # 7. She states she is feeling good/ ok today. 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 She states she has not directly exposed to any of the students thus far. She denies any fever or chills, cough or shortness of breath. She states her nausea is better overall and she does not need any other treatment for it at home. She states her bowels and bladder are good as well. She has some persistent but not worsening neuropathy in her feet, but tends to get better on her week off. She denies any pain. Her ECOG is 0. Past Medical History: Anxiety Arthritis Depression History of right breast cancer Migraine headaches Past Surgical History: Breast biopsy Cervical fusion Left knee arthroscopy Right breast lumpectomy Right foot tendon avulsion Right total knee replacement Allergies: Latex and Penicillins. Medications: ALPRAZolam 1 (1 mg) Tablet Oral t.i.d. PRN Claritin 1 Tablet (of 10 mg) Oral at bedtime Cymbalta 1 (30 mg) Capsule Delayed Release Particles Oral daily Lidocaine-Prilocaine 1 (2.5-2.5 %) Cream Topical daily PRN LORazepam 0.5 - 1 Tablet (of 1 mg) Oral t.i.d. PRN Methocarbamol 1 - 2 Tablet (of 750 mg) Oral t.i.d. PRN Ondansetron HCl 1 - 2 Tablet (of 4 mg) Oral four times a day PRN Prochlorperazine Maleate 1 Tablet (of 10 mg) Oral q 4 hours PRN Xarelto 1 Tablet (of 15 mg) Oral b.i.d. Family History: Ms. Fermin's mother is alive: colon cancer. Ms. Fermin's father at age 71: colon cancer. 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 Ms. Fermin quit smoking 3 years ago but had smoked 1.0 pack/day for 25 years. She drinks occasionally. She consumes 2 days/week. Ms. Fermin reports the following support systems: lives with spouse, significant other, family, or friends, lives in own house, supportive family/friends willing to assist with needs, and adequate transportation available for expected visits. Her diet consists of regular meals. She indicates her activity level as: regular exercise. Review Of Symptoms: Constitutional Denies fevers, chills, night sweats or weight loss. Has fatigue but some better this week. Working mostly from home. Allergic/Immunologic seasonal allergies-cottonwood trees. Eyes Denies significant visual changes. No diplopia. No amaurosis. ENMT Denies changes in hearing, sore throat, mouth sores, difficulty or changes in swallowing ability, and/or sinus drainage. Endocrine No diabetes, thyroid disease or hormone replacement. Denies hot flashes or night sweats. Hematologic/Lymphatic Denies easy bruising or bleeding. The patient denies any tender or palpable lymph nodes. Breasts no new concerns Respiratory Denies dyspnea on exertion, chest pain, cough or hemoptysis. Denies orthopnea. Cardiovascular Denies anginal chest pain, palpitations or orthopnea. Gastrointestinal Denies nausea, diarrhea, GI bleeding, or constipation. Denies change in bowel habits and/or stool color or early satiety. Genitourinary (F) No hematuria, hesitancy, incontinence, vaginal bleeding, discharge or other problems with urination. Musculoskeletal Denies new joint pain, swelling or redness. No decreased range of motion. Chronic shoulder pain-improved with Morphine. Integumentary Denies chronic rashes, inflammation, ulcerations or skin changes. Neurologic Denies headache, blurred vision, and no areas of focal weakness or numbness. Normal gait. No sensory problems. Psychiatric Denies insomnia, depression, monae or mood swings. Vital Signs: Performed on Aug 01, 2020 11:27 Height - 72.00 in Weight - 253.6 lbs (LOW) BSA - 2.36 sq.m BMI - 34.39 (HIGH) Temperature - 96.2 F (LOW) Pulse - 114 /min (HIGH) Respiration - 18 /min BP - 158/95 mm(hg) (HIGH) O2 Sat - 94 % (LOW) Pain - 6,1 - No physically strenuous activity, but ambulatory and able to carry out light or sedentary work (e.g. office work, light house work). (ECOG) Physical Examination: Constitutional Alert, oriented, no acute distress. Skin pink, warm and dry. Alopecia. Head Normocephalic; atraumatic. Eyes Conjunctivae and sclerae are clear and without icterus. Pupils are reactive and equal. Neck Supple without masses or thyromegaly. No jugular venous distension. Hematologic/Lymphatic No petechiae or purpura. No tender or palpable lymph nodes in the cervical or supraclavicular areas. Respiratory Lungs are clear to auscultation without rhonchi or wheezing. Cardiovascular Regular rate and rhythm of heart without murmurs,clicks, gallops or rubs. Chest Left venous access insertion site is unremarkable. Abdomen Non-tender, non-distended, no masses or ascites. No guarding or rebound tenderness. No pulsatile masses. Back/Spine Non-tender to palpation. Extremities No visible deformities, no cyanosis, clubbing or edema. Musculoskeletal No tenderness or swelling, normal range of motion without obvious weakness. Integumentary No rashes or lesions. Neurologic No sensory or motor deficits, normal cerebellar function, normal gait. Psychiatric Alert and oriented times three. Coherent speech. Verbalizes understanding of our discussions today. Laboratory:Test performed on Jul 10, 2020 09:12 Sodium 137 mmol/L Potassium 4.1 mmol/L Chloride 103 mmol/L CO2 24 mmol/L Anion Gap 14.1 BUN 14 mg/dL Creatinine 0.7 mg/dL Cr Clearance (Est) 169.3200 mL/min eGFR 87.5 mL/min Glucose 145 mg/dL Calcium 8.6 mg/dL Protein, Total 7.0 g/dL Albumin 4.2 g/dL Globulin 2.8 g/dL Bilirubin, Total 0.3 mg/dL ALT (SGPT) 25 U/L AST (SGOT) 20 U/L Alkaline Phosphatase 92 IU/L Test performed on Jun 06, 2020 10:35 Ferritin 212 ng/mL Iron 28 mcg/dL Vitamin B12 > 2000 pg/mL Iron Binding Capacity (TIBC) 204 mcg/dl % Iron Saturation 13.7 % UIBC 176 mcg/dL Test performed on May 29, 2020 10:06 WBC 3.9 10 3/uL RBC 3.70 10 6/uL HGB 10.8 g/dL HCT 33.7 % MCV 91.1 fL MCH 29.2 pg MCHC 32.0 g/dL RDW 14.6 % Platelet Count 251 10 3/cmm MPV 9.6 fL Neutrophils 2.16 10 3/uL Lymphocytes 0.5 10 3/uL Monocytes 0.8 10 3/uL Eosinophils 0.0 10 3/uL Basophils 0.1 10 3/uL Neutrophil % 55.8 % Lymphocyte % 12.7 % Monocyte % 21.4 % Eosinophil % 0.3 % Basophils % 1.3 % NRBC % 1.0 % CBC Slide Review Slide Review Perform SLIDE REVIEW AGREES WITH AUTOMATED RESULTS ST Impression: Invasive ductal carcinoma status post right breast wide excisional lumpectomy done on 02/09/2019 final pathology report showed invasive ductal carcinoma 5.5 x 4.5 x 3.5 cm, focally extends to the inked posterior margin, extensive ductal carcinoma in situ with focal apocrine features, high nuclear grade. Followed by reexcision of often involved margin on 02/24/2020 with clear margins pT3 and 1 sentinel lymph node was examined showed no evidence of metastatic disease pNo stage IIB, ER/NH/HER-2/cristobal negative with high Ki-67 e.g. 38%. chronic right shoulder pain due to rotator cuff Dr Landeros discussed with Mrs Fermin her disease status. She has locally advanced disease e.g. T3 lesion, status post wide excision of right breast lumpectomy/partial mastectomy with clear surgical margins and 1 sentinel lymph node was examined showed no evidence of metastatic disease, clinical stage IIB. Breast cancer prognostic profiling showed triple negative disease e.g. ER/NH/HER-2/cristobal negative. Being triple negative and locally advanced disease, Mrs Fermin wais a candidate for adjuvant chemotherapy. As per NCCN guidelines, dense Adriamycin Cytoxan e.g. every 2 weeks ???4 with Neulasta support to prevent chemotherapy-induced neutropenia-Followed by weekly Taxol ???12, followed by postlumpectomy radiation therapy was the initial treatment plan. As discussed previously she had significant hyperglycemia, anxiety, insomnia and palpitations with an inadvertently taken steroid premed prior to her chemotherapy on cycle 1 day 1. It was felt that she wouold not tolerate the steroids required for the Taxol and we did pursue obtaining Abraxane for her. She has now completed 4 cycles of Adriamycin Cytoxan. She has experienced expected side effects but overall has tolerated it well. She began her taxane portion of her treatment plan on 05/30/2020. She is only been able to complete 2 consecutive weeks her cycle. She most likely change her cycles to 2 out of every 3 weeks for total of [address] Landeros's last note. She has had trouble with performance status even with 2 consecutive weeks. The week off has dramatically improved performance status and she is tolerating chemo well overall all 2 weeks on 1 week off. Plan: 1. Proceed with week 7/12 of Abraxane. 2. Continue previous premedications as her nausea was appropriately controlled. Continue Protonix 40 mg at hs for acid reflux. May add Scopalamine patch if need antiemetic whille at work. (Compazine knocks her out and Zofran causes migraines). 3. Labs from 07/31/2020 were reviewed in detail and discussed with Mrs. Fermin and a copy was given to her. WBC 3.8, hemoglobin 11.7, platelets 307,000 ANC is 2200. 4. On April 14, 2020, a venogram of left upper extremity was obtained for evaluation of unilateral edema. Continue Xarelto for unilateral upper extremity edema. Doppler was negative for clot but the swellling did resolve with the addition of Xarelto. 6. She may try taking dexamethasone 4 mg starting on for 1-2 days and then 2 mg for 1-2 days (if needed) after treatment for significant fatigue and bone pain. 7. We will see her back in 1 week for week 8 of 12 Abraxane. 8. It was opted to change her 12 weeks of taxane to weekly Abraxane given that she had significant hyperglycemia as she inadvertently took her steroid premedication for the Adriamycin/Cytoxan. Her random glucose was 105 compared to 282 when she took the steroids. She also developed insomnia, anxiety and palpitations with the steroids. Dr. Landeros has recommended pursuing the Abraxane and Mrs. Fermin agrees. Her treatment plan currently is 2 weeks on and 1 week off due to tolerance of the chemotherapy. 9. Mrs. Serrano was instructed to contact us in the interim should questions or problems arise. Signed By: Ghada Cao-, [facility] Andrei Landeros MD <<Signature on File>>
[2020-08-07] MEDS: alteplase 1 mg/mL SDV 2 mL 2 MG INTRACATH (10:05)
[2020-08-07 10:36] LABS: Basophils % 0.9 %; Eosinophils % 0.9 %; Hematocrit 39.3 % (37.0-47.0); Hemoglobin 11.8 g/dL (11.5-15.3); Lymphocytes % 21.5 %; Mean Corpuscular Hemoglobin 27.2 pg (28.0-34.0); Mean Corpuscular Volume 90.6 fL (81-99); Mean Platelet Volume 10.2 fL (7.4-10.4); Monocytes # 0.2 10^3/uL (0.2-0.9); Monocytes % 3.4 %; Neutrophils # 3.21 10^3/uL (1.8-7.7); Neutrophils % 72.8 %; Nucleated Red Blood Cells % 0 %; Platelet Count 277 10^3/cmm (130-400); Red Blood Count 4.34 10^6/uL (4.1-5.3); Red Cell Distribution Width 14.6 % (12.1-15.1); White Blood Count 4.4 10^3/uL (4.0-10.0)
[2020-08-07 10:57] LABS: Alanine Aminotransferase 25 U/L (0-33); Alkaline Phosphatase 85 IU/L (35-105); Anion Gap 13.5 (5-19); Aspartate Amino Transferase 22 U/L (0-32); Blood Urea Nitrogen 8 mg/dL (6-20); Calcium 9.2 mg/dL (8.5-10.5); Carbon Dioxide 25 mmol/L (22-29); Chloride 101 mmol/L (98-107); Globulin 2.8 g/dL (1.3-4.6); Glucose 131 mg/dL (65-115); Osmolality Calculated 280 mOsm/kg (285-295); Potassium 4.5 mmol/L (3.5-5.1); Sodium 135 mmol/L (136-145); Total Bilirubin 0.4 mg/dL (0.15-1.2); Total Protein 6.8 g/dL (6.6-8.7)
[2020-08-08] MEDS: sodium chloride 0.9% 250 ML 999 ML IV (09:20)
--- NOTE | 2020-08-17 18:17 | ONC FU_ITS ---
[facility] Patient Note Patient: Lisbeth Fermin Unit #: [id number]: 1965 Dictated By: Ghada CaoDate of Visit: Aug 08, 2020 Onc MED Follow-Up/Prog Note Chief Complaint: Right breast cancer History of Present Illness: Mrs. Fermin is a 54-year-old female with a history of right breast mass. In November 2019 she noted a mass in her right breast. As it did not go away, she underwent mammogram which showed a mass in her right breast. She underwent ultrasound of right breast which showed a mass at 10-12:00, large irregular hypoechoic solid lesion taller than wide, measuring 3.8 x 2.1 x 4.9 cm. The mass was highly suspicious for malignancy. She also had an adjacent smaller solid satellite nodules measuring 1.9 x 1.4 x 1.2 cm and 0.9 x 0.5 x 0.6 cm mass. She then underwent ultrasound-guided core needle biopsies on 01/21/2020. The pathology reported invasive ductal carcinoma of breast. Positive in 5 out of 5 core biopsies. ER/[place] negative e.g. (less than 1% although in the report [place] was mentioned positive but it was less than 1% and went confirmed with pathology, Dr. Mckinnon said it should be negative). HER-2/cristobal negative as well. Mrs Fermin underwent right breast wide excisional lumpectomy on 02/10/2020. The final pathology report confirmed invasive tumor 5.5 x 4.5 x 3.5 cm. focally extends to the inked posterior margin; remaining margins free of invasive carcinoma. Extensive ductal carcinoma in situ with focal apocrine features, high nuclear grade, carcinoma in situ extends to within 1 mm of inked inferior margin, and remaining margins were free., Complex sclerosing lesion, extensive sclerosing adenosis, fibrocystic changes, cystic and papillary apocrine metaplasia. One sentinel lymph node was removed and examined showed no evidence of metastatic disease. She underwent reexcision of positive surgical margin on 02/24/2020 and obtain clear surgical margins. Mrs Fermin denies any history of bony pains except chronic right shoulder rotator cuff and history of right knee replacement. History of smoking, occasional alcohol use. Menarche at age 15, first at age 26, no history of hormone use. Last menstrual period was in December 2018. Mrs Fermin was offered treatment of her triple negative, sentinel node negative breast cancer with Adriamycin Cytoxan dose dense for 4 cycles followed by Taxotere for 12 weeks. She began her first cycle of chemotherapy on April 04, 2020. We have planned to exchange weekly Taxotere with weekly Abraxane due to significant side effects with steroids. She had significant hyperglycemia, insomnia, worsening anxiety, and mood swings. That was with 1 dose that was inadvertently taken in preparation for her first chemotherapy with Adriamycin and Cytoxan. She has completed 4 cycles of dose dense Adriamycin Cytoxan.. She was intolerant to oral steroids (she inadvertently took dexamethasone with her first cycle of AC) in that she had significant hyperglycemia, severe mood swings, insomnia and severe anxiety on the day of and day after she took them. That is why instead of weekly Taxol, she was offered weekly Abraxane, 3 weeks on 1 week off x 4 cycles, Which started on May 30, 2020. She completed 2 weekly doses from 05/30 to 06/06/2020. She was delayed on 06/13/2020 due to performance status and her mother in law's /. She resumed treatment on 06/20/2020 and completed 2 weekly cycles. Ms. Fermin is here today for follow-up. She is on a 2 week on and 1 week Abraxane treatment plan with a goal of 12 treatments in total. Today is # 8. She states she is feeling good/ ok today. 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 She states she has not directly exposed to any of the students thus far. She denies any COVID symptoms. Her son did test positive, but she has not been in close contact with him. She denies any fever or chills, cough or shortness of breath. She states her nausea is better in general (since the heartburn has been controlled) and she does not need any other treatment for it at home. She states her bowels and bladder are good as well. She has some persistent but not worsening neuropathy in her feet, but tends to get better on her week off. She notes she is beginning to have some hair regrowth on her scalp. She denies any pain. Her ECOG is 0. Past Medical History: Anxiety Arthritis Depression History of right breast cancer Migraine headaches Past Surgical History: Breast biopsy Cervical fusion Left knee arthroscopy Right breast lumpectomy Right foot tendon avulsion Right total knee replacement Allergies: Latex and Penicillins. Medications: ALPRAZolam 1 (1 mg) Tablet Oral t.i.d. PRN Claritin 1 Tablet (of 10 mg) Oral at bedtime Cymbalta 1 (30 mg) Capsule Delayed Release Particles Oral daily Lidocaine-Prilocaine 1 (2.5-2.5 %) Cream Topical daily PRN LORazepam 0.5 - 1 Tablet (of 1 mg) Oral t.i.d. PRN Methocarbamol 1 - 2 Tablet (of 750 mg) Oral t.i.d. PRN Ondansetron HCl 1 - 2 Tablet (of 4 mg) Oral four times a day PRN Prochlorperazine Maleate 1 Tablet (of 10 mg) Oral q 4 hours PRN Xarelto 1 Tablet (of 15 mg) Oral b.i.d. Family History: Ms. Fermin's mother is alive: colon cancer. Ms. Fermin's father at age 71: colon cancer. 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 Ms. Fermin quit smoking 3 years ago but had smoked 1.0 pack/day for 25 years. She drinks occasionally. She consumes 2 days/week. Ms. Fermin reports the following support systems: lives with spouse, significant other, family, or friends, lives in own house, supportive family/friends willing to assist with needs, and adequate transportation available for expected visits. Her diet consists of regular meals. She indicates her activity level as: regular exercise. Review Of Symptoms: Constitutional Denies fevers, chills, night sweats or weight loss. Has fatigue. Working mostly from home. Allergic/Immunologic seasonal allergies-cottonwood trees. Eyes Denies significant visual changes. No diplopia. No amaurosis. ENMT Denies changes in hearing, sore throat, mouth sores, difficulty or changes in swallowing ability, and/or sinus drainage. Endocrine No diabetes, thyroid disease or hormone replacement. Denies hot flashes or night sweats. Hematologic/Lymphatic Denies easy bruising or bleeding. The patient denies any tender or palpable lymph nodes. Breasts no new concerns Respiratory Denies dyspnea on exertion, chest pain, cough or hemoptysis. Denies orthopnea. Cardiovascular Denies anginal chest pain, palpitations or orthopnea. Gastrointestinal Denies nausea, diarrhea, GI bleeding, or constipation. Denies change in bowel habits and/or stool color or early satiety. Genitourinary (F) No hematuria, hesitancy, incontinence, vaginal bleeding, discharge or other problems with urination. Musculoskeletal Denies new joint pain, swelling or redness. No decreased range of motion. Chronic shoulder pain-improved with Morphine initially but she states she does not like the way it makes her feel and she would like to go back to the oxycodone.. Integumentary Denies chronic rashes, inflammation, ulcerations or skin changes. Neurologic Denies headache, blurred vision, and no areas of focal weakness or numbness. Normal gait. No sensory problems. Psychiatric Denies insomnia, depression, monae or mood swings. Vital Signs: Performed on Aug 08, 2020 09:36 Height - 72.00 in Weight - 249.8 lbs (LOW) BSA - 2.34 sq.m BMI - 33.88 (HIGH) Temperature - 97.9 F (LOW) Pulse - 95 /min Respiration - 24 /min BP - 130/83 mm(hg) O2 Sat - 95 % (LOW) Pain - 9,1 - No physically strenuous activity, but ambulatory and able to carry out light or sedentary work (e.g. office work, light house work). (ECOG) Physical Examination: Constitutional Alert, oriented, no acute distress. Skin pink, warm and dry. Alopecia. Head Normocephalic; atraumatic. Eyes Conjunctivae and sclerae are clear and without icterus. Pupils are reactive and equal. Neck Supple without masses or thyromegaly. No jugular venous distension. Hematologic/Lymphatic No petechiae or purpura. No tender or palpable lymph nodes in the cervical or supraclavicular areas. Respiratory Lungs are clear to auscultation without rhonchi or wheezing. Cardiovascular Regular rate and rhythm of heart without murmurs,clicks, gallops or rubs. Chest Left venous access insertion site is unremarkable. Abdomen Non-tender, non-distended, no masses or ascites. No guarding or rebound tenderness. No pulsatile masses. Back/Spine Non-tender to palpation. Extremities No visible deformities, no cyanosis, clubbing or edema. Musculoskeletal No tenderness or swelling, normal range of motion without obvious weakness. Integumentary No rashes or lesions. Neurologic No sensory or motor deficits, normal cerebellar function, normal gait. Psychiatric Alert and oriented times three. Coherent speech. Verbalizes understanding of our discussions today. Laboratory:see flow sheet and see plan below Impression: Invasive ductal carcinoma status post right breast wide excisional lumpectomy done on 02/09/2019 final pathology report showed invasive ductal carcinoma 5.5 x 4.5 x 3.5 cm, focally extends to the inked posterior margin, extensive ductal carcinoma in situ with focal apocrine features, high nuclear grade. Followed by reexcision of often involved margin on 02/24/2020 with clear margins pT3 and 1 sentinel lymph node was examined showed no evidence of metastatic disease pNo stage IIB, ER/[place]/HER-2/cristobal negative with high Ki-67 e.g. 38%. chronic right shoulder pain due to rotator cuff Dr Landeros discussed with Mrs Fermin her disease status. She has locally advanced disease e.g. T3 lesion, status post wide excision of right breast lumpectomy/partial mastectomy with clear surgical margins and 1 sentinel lymph node was examined showed no evidence of metastatic disease, clinical stage IIB. Breast cancer prognostic profiling showed triple negative disease e.g. ER/[place]/HER-2/cristobal negative. Being triple negative and locally advanced disease, Mrs Zander echeverriais a candidate for adjuvant chemotherapy. As per NCCN guidelines, dense Adriamycin Cytoxan e.g. every 2 weeks ???4 with Neulasta support to prevent chemotherapy-induced neutropenia-Followed by weekly Taxol ???12, followed by postlumpectomy radiation therapy was the initial treatment plan. As discussed previously she had significant hyperglycemia, anxiety, insomnia and palpitations with an inadvertently taken steroid premed prior to her chemotherapy on cycle 1 day 1. It was felt that she wouold not tolerate the steroids required for the Taxol and we did pursue obtaining Abraxane for her. She has now completed 4 cycles of Adriamycin Cytoxan. She has experienced expected side effects but overall has tolerated it well. She began her taxane portion of her treatment plan on 05/30/2020. She is only been able to complete 2 consecutive weeks her cycle. She most likely change her cycles to 2 out of every 3 weeks for total of [address] Landeros's last note. She has had trouble with performance status even with 2 consecutive weeks. The week off has dramatically improved performance status and she is tolerating chemo well overall all 2 weeks on 1 week off. Plan: 1. Proceed with week 812 of Abraxane. 2. Continue previous premedications as her nausea was appropriately controlled. Continue Protonix 40 mg at hs for acid reflux as it is working well. May add Scopalamine patch if need antiemetic whille at work. (Compazine knocks her out and Zofran causes migraines). 3. Labs from 08/07/2020 were reviewed in detail and discussed with Mrs. Fermin and a copy was given to her. WBC 4.4, hemoglobin 11.8, platelets 277,000 ANC is 3200. 4. On April 14, 2020, a venogram of left upper extremity was obtained for evaluation of unilateral edema. Continue Xarelto for unilateral upper extremity edema. Doppler was negative for clot but the swellling did resolve with the addition of Xarelto. 6. REfill Cymbalta and refill/renew oxycodone prescription. 7. We will see her back in 2 weeks for week 9 of 12 Abraxane. 8. It was opted to change her 12 weeks of taxane to weekly Abraxane given that she had significant hyperglycemia as she inadvertently took her steroid premedication for the Adriamycin/Cytoxan. Her random glucose was 105 compared to 282 when she took the steroids. She also developed insomnia, anxiety and palpitations with the steroids. Dr. Landeros has recommended pursuing the Abraxane and Mrs. Fermin agrees. Her treatment plan currently is 2 weeks on and 1 week off due to tolerance of the chemotherapy. 9. Mrs. Serrano was instructed to contact us in the interim should questions or problems arise. Signed By: Ghada Cao-, [facility] Andrei Landeros MD <<Signature on File>>
== END 2020-08-16 23:59 | disposition home or self-care (01) ==
LOC: ONCMED 05:33
PROVIDERS: Internal Medicine Hematology & Oncology; PCP Internal Medicine; Visit Provider Nurse Practitioner
DX: Z51.11 Encounter for antineoplastic chemotherapy (principal); C50.411 Malignant neoplasm of upper-outer quadrant of right female breast; Z17.1 Estrogen receptor negative status [ER-]; F32.9 Major depressive disorder, single episode, unspecified; F41.9 Anxiety disorder, unspecified; G89.29 Other chronic pain; M25.511 Pain in right shoulder
CPT/HCPCS: 36415; 36591; 36593; 80053; 85025; 96367; 96374; 96413; 99214; J1100; J2469; J2997; J3490; J7050; J9264

== ENCOUNTER 2020-09-12 10:02 | Outpatient (RCR) | payer MEDICAID, SELFPAY ==
[2020-08-21 11:56] LABS: Basophils % 0.8 %; Eosinophils % 0.8 %; Hematocrit 37.4 % (37.0-47.0); Hemoglobin 11.7 g/dL (11.5-15.3); Lymphocytes % 20.1 %; Mean Corpuscular HGB Conc 31.3 g/dL (30.0-36.0); Mean Corpuscular Volume 86.2 fL (81-99); Mean Platelet Volume 9.6 fL (7.4-10.4); Monocytes # 0.5 10^3/uL (0.2-0.9); Monocytes % 10.3 %; Neutrophils # 3.23 10^3/uL (1.8-7.7); Neutrophils % 67.6 %; Nucleated Red Blood Cells % 0 %; Platelet Count 330 10^3/cmm (130-400); Red Blood Count 4.34 10^6/uL (4.1-5.3); Red Cell Distribution Width 14.4 % (12.1-15.1); White Blood Count 4.8 10^3/uL (4.0-10.0)
[2020-08-21 12:40] LABS: Alanine Aminotransferase 19 U/L (0-33); Albumin Level 3.7 g/dL (3.5-5.2); Alkaline Phosphatase 83 IU/L (35-105); Anion Gap 11.6 (5-19); Aspartate Amino Transferase 20 U/L (0-32); Blood Urea Nitrogen 13 mg/dL (6-20); Calcium 8.9 mg/dL (8.5-10.5); Carbon Dioxide 26 mmol/L (22-29); Chloride 104 mmol/L (98-107); Globulin 2.2 g/dL (1.3-4.6); Glomerular Filtration Rate 87.5 mL/min (90-130); Glucose 94 mg/dL (65-115); Osmolality Calculated 286 mOsm/kg (285-295); Potassium 3.6 mmol/L (3.5-5.1); Sodium 138 mmol/L (136-145); Total Bilirubin 0.2 mg/dL (0.15-1.2); Total Protein 5.9 g/dL (6.6-8.7)
[2020-08-22] MEDS: sodium chloride 0.9% 250 ML 75 ML IV (12:00)
[2020-08-28 10:53] LABS: Basophils % 0.8 %; Eosinophils % 0.6 %; Hematocrit 39.9 % (37.0-47.0); Hemoglobin 12.3 g/dL (11.5-15.3); Lymphocytes # 0.9 10^3/uL (0.8-4.8); Lymphocytes % 18.6 %; Mean Corpuscular HGB Conc 30.8 g/dL (30.0-36.0); Mean Corpuscular Hemoglobin 26.5 pg (28.0-34.0); Mean Corpuscular Volume 85.8 fL (81-99); Mean Platelet Volume 10.2 fL (7.4-10.4); Monocytes # 0.2 10^3/uL (0.2-0.9); Monocytes % 4.2 %; Neutrophils # 3.58 10^3/uL (1.8-7.7); Nucleated Red Blood Cells % 0 %; Platelet Count 255 10^3/cmm (130-400); Red Blood Count 4.65 10^6/uL (4.1-5.3); Red Cell Distribution Width 14.5 % (12.1-15.1); White Blood Count 4.8 10^3/uL (4.0-10.0)
[2020-08-28 11:24] LABS: Alanine Aminotransferase 41 U/L (0-33); Albumin Level 4.1 g/dL (3.5-5.2); Alkaline Phosphatase 92 IU/L (35-105); Anion Gap 15.4 (5-19); Aspartate Amino Transferase 30 U/L (0-32); Blood Urea Nitrogen 11 mg/dL (6-20); Calcium 9.4 mg/dL (8.5-10.5); Carbon Dioxide 27 mmol/L (22-29); Chloride 100 mmol/L (98-107); Globulin 2.6 g/dL (1.3-4.6); Glomerular Filtration Rate 104.6 mL/min (90-130); Glucose 128 mg/dL (65-115); Osmolality Calculated 287 mOsm/kg (285-295); Potassium 4.4 mmol/L (3.5-5.1); Sodium 138 mmol/L (136-145); Total Bilirubin 0.5 mg/dL (0.15-1.2); Total Protein 6.7 g/dL (6.6-8.7)
[2020-08-29] MEDS: sodium chloride 0.9% 250 ML 75 ML IV (11:16)
--- NOTE | 2020-08-29 17:45 | ONC FU_ITS ---
Dr. Landeros follow up note Patient: Lisbeth Fermin Unit #: [id number]: 1965 Dicatated By: Andrei Landeros M.D.Date of Visit:Aug 29, 2020 Onc Med Follow-up/Prog Note History of Present Illness: Mrs. Fermin is a 54-year-old female with a history of right breast mass. In November 2019 she noted a mass in her right breast. As it did not go away, she underwent mammogram which showed a mass in her right breast. She underwent ultrasound of right breast which showed a mass at 10-12:00, large irregular hypoechoic solid lesion taller than wide, measuring 3.8 x 2.1 x 4.9 cm. The mass was highly suspicious for malignancy. She also had an adjacent smaller solid satellite nodules measuring 1.9 x 1.4 x 1.2 cm and 0.9 x 0.5 x 0.6 cm mass. She then underwent ultrasound-guided core needle biopsies on 01/21/2020. The pathology reported invasive ductal carcinoma of breast. Positive in 5 out of 5 core biopsies. ER/[place] negative e.g. (less than 1% although in the report [place] was mentioned positive but it was less than 1% and went confirmed with pathology, Dr. Mckinnon said it should be negative). HER-2/cristobal negative as well. Mrs Fermin underwent right breast wide excisional lumpectomy on 02/10/2020. The final pathology report confirmed invasive tumor 5.5 x 4.5 x 3.5 cm. focally extends to the inked posterior margin; remaining margins free of invasive carcinoma. Extensive ductal carcinoma in situ with focal apocrine features, high nuclear grade, carcinoma in situ extends to within 1 mm of inked inferior margin, and remaining margins were free., Complex sclerosing lesion, extensive sclerosing adenosis, fibrocystic changes, cystic and papillary apocrine metaplasia. One sentinel lymph node was removed and examined showed no evidence of metastatic disease. She underwent reexcision of positive surgical margin on 02/24/2020 and obtain clear surgical margins. Mrs Fermin denies any history of bony pains except chronic right shoulder rotator cuff and history of right knee replacement. History of smoking, occasional alcohol use. Menarche at age 15, first at age 26, no history of hormone use. Last menstrual period was in December 2018. Mrs Fermin was offered treatment of her triple negative, sentinel node negative breast cancer with Adriamycin Cytoxan dose dense for 4 cycles followed by Taxotere for 12 weeks. She began her first cycle of chemotherapy on April 04, 2020. We have planned to exchange weekly Taxotere with weekly Abraxane due to significant side effects with steroids. She had significant hyperglycemia, insomnia, worsening anxiety, and mood swings. That was with 1 dose that was inadvertently taken in preparation for her first chemotherapy with Adriamycin and Cytoxan. She has completed 4 cycles of dose dense Adriamycin Cytoxan.. She was intolerant to oral steroids (she inadvertently took dexamethasone with her first cycle of AC) in that she had significant hyperglycemia, severe mood swings, insomnia and severe anxiety on the day of and day after she took them. That is why instead of weekly Taxol, she was offered weekly Abraxane, 3 weeks on 1 week off x 4 cycles, Which started on May 30, 2020. She completed 2 weekly doses from 05/30 to 06/06/2020. She was delayed on 06/13/2020 due to performance status and her mother in law's /. She resumed treatment on 06/20/2020 Came for follow-up, denies any specific complaints, no fever chills, no diarrhea or constipation, no mouth sores, tolerating adjuvant chemotherapy with Abraxane well Medications: ALPRAZolam 1 (1 mg) Tablet Oral t.i.d. PRN, Claritin 1 Tablet (of 10 mg) Oral at bedtime, Cymbalta 1 (30 mg) Capsule Delayed Release Particles Oral daily, Lidocaine-Prilocaine 1 (2.5-2.5 %) Cream Topical daily PRN, LORazepam 0.5 - 1 Tablet (of 1 mg) Oral t.i.d. PRN, Methocarbamol 1 - 2 Tablet (of 750 mg) Oral t.i.d. PRN, Ondansetron HCl 1 - 2 Tablet (of 4 mg) Oral four times a day PRN, Prochlorperazine Maleate 1 Tablet (of 10 mg) Oral q 4 hours PRN, Xarelto 1 Tablet (of 15 mg) Oral b.i.d. Allergies: Latex and Penicillins. Review of Systems: Review of Systems is not available for this patient. Vital Signs: Performed on Aug 29, 2020 09:50 Height - 72.00 in Weight - 245.0 lbs (LOW) BSA - 2.32 sq.m BMI - 33.23 (HIGH) Temperature - 98.2 F (LOW) Pulse - 99 /min Respiration - 24 /min BP - 143/80 mm(hg) (HIGH) O2 Sat - 96 % Pain - 7 Performance Status: 0 - Fully active, able to carry on all predisease activities without restrictions. (ECOG) Physical Examination: Respiratory - Lungs are clear to auscultation, Cardiovascular - Regular rate and rhythm of heart, Gastrointestinal - Soft, bowel sounds present, Extremities - No visible edema. Lab/Imaging: Test performed on Jul 10, 2020 09:12 Sodium 137 mmol/L Potassium 4.1 mmol/L Chloride 103 mmol/L CO2 24 mmol/L Anion Gap 14.1 BUN 14 mg/dL Creatinine 0.7 mg/dL Cr Clearance (Est) 169.3200 mL/min eGFR 87.5 mL/min Glucose 145 mg/dL Calcium 8.6 mg/dL Protein, Total 7.0 g/dL Albumin 4.2 g/dL Globulin 2.8 g/dL Bilirubin, Total 0.3 mg/dL ALT (SGPT) 25 U/L AST (SGOT) 20 U/L Alkaline Phosphatase 92 IU/L Test performed on Jun 06, 2020 10:35 Ferritin 212 ng/mL Iron 28 mcg/dL Vitamin B12 > 2000 pg/mL Iron Binding Capacity (TIBC) 204 mcg/dl % Iron Saturation 13.7 % UIBC 176 mcg/dL Test performed on May 29, 2020 10:06 WBC 3.9 10 3/uL RBC 3.70 10 6/uL HGB 10.8 g/dL HCT 33.7 % MCV 91.1 fL MCH 29.2 pg MCHC 32.0 g/dL RDW 14.6 % Platelet Count 251 10 3/cmm MPV 9.6 fL Neutrophils 2.16 10 3/uL Lymphocytes 0.5 10 3/uL Monocytes 0.8 10 3/uL Eosinophils 0.0 10 3/uL Basophils 0.1 10 3/uL Neutrophil % 55.8 % Lymphocyte % 12.7 % Monocyte % 21.4 % Eosinophil % 0.3 % Basophils % 1.3 % NRBC % 1.0 % CBC Slide Review Slide Review Perform SLIDE REVIEW AGREES WITH AUTOMATED RESULTS ST Impression: Invasive ductal carcinoma status post right breast wide excisional lumpectomy done on 02/09/2019 final pathology report showed invasive ductal carcinoma 5.5 x 4.5 x 3.5 cm, focally extends to the inked posterior margin, extensive ductal carcinoma in situ with focal apocrine features, high nuclear grade. Followed by reexcision of often involved margin on 02/24/2020 with clear margins pT3 and 1 sentinel lymph node was examined showed no evidence of metastatic disease pNo stage IIB, ER/SD/HER-2/cristobal negative with high Ki-67 e.g. 38%. chronic right shoulder pain due to rotator cuff Dr Landeros discussed with Mrs Fermin her disease status. She has locally advanced disease e.g. T3 lesion, status post wide excision of right breast lumpectomy/partial mastectomy with clear surgical margins and 1 sentinel lymph node was examined showed no evidence of metastatic disease, clinical stage IIB. Breast cancer prognostic profiling showed triple negative disease e.g. ER/SD/HER-2/cristobal negative. Being triple negative and locally advanced disease, Mrs Zander echeverriais a candidate for adjuvant chemotherapy. As per NCCN guidelines, dense Adriamycin Cytoxan e.g. every 2 weeks ???4 with Neulasta support to prevent chemotherapy-induced neutropenia-Followed by weekly Taxol ???12, followed by postlumpectomy radiation therapy was the initial treatment plan. As discussed previously she had significant hyperglycemia, anxiety, insomnia and palpitations with an inadvertently taken steroid premed prior to her chemotherapy on cycle 1 day 1. It was felt that she wouold not tolerate the steroids required for the Taxol and we did pursue obtaining Abraxane for her. She has now completed 4 cycles of Adriamycin Cytoxan. She has experienced expected side effects but overall has tolerated it well. She began her taxane portion of her treatment plan on 05/30/2020. She is only been able to complete 2 consecutive weeks her cycle. She most likely change her cycles to 2 out of every 3 weeks for total of [address] Landeros's last note. She has had trouble with performance status even with 2 consecutive weeks. The week off has dramatically improved performance status and she is tolerating chemo well overall all 2 weeks on 1 week off. Plan: Discussed with patient regarding her labs white blood count 4.8 hemoglobin 12.3 hematocrit 39.9 platelets 255,000 CMP within normal limits Clinically, patient is doing well, tolerating adjuvant therapy with weekly Abraxane well, her blood count looks reasonable and will proceed with cycle #10/12 today and then she will return to clinic in 2 weeks with CBC CMP and blood count looks reasonable for next weekly dose of Abraxane. In the meantime we will refer her to radiation oncology for evaluation Signed By: Andrei Landeros M.D. <<Signature on File>>
[2020-09-11 09:17] LABS: Basophils % 1.2 %; Eosinophils # 0.1 10^3/uL (0.0-0.8); Eosinophils % 1.5 %; Hematocrit 39.8 % (37.0-47.0); Hemoglobin 12.3 g/dL (11.5-15.3); Lymphocytes % 31.3 %; Mean Corpuscular HGB Conc 30.9 g/dL (30.0-36.0); Mean Corpuscular Hemoglobin 26.3 pg (28.0-34.0); Mean Platelet Volume 9.9 fL (7.4-10.4); Monocytes # 0.5 10^3/uL (0.2-0.9); Monocytes % 14.6 %; Neutrophils # 1.68 10^3/uL (1.8-7.7); Neutrophils % 51.1 %; Nucleated Red Blood Cells % 0 %; Platelet Count 300 10^3/cmm (130-400); Red Blood Count 4.68 10^6/uL (4.1-5.3); White Blood Count 3.3 10^3/uL (4.0-10.0)
[2020-09-11 09:45] LABS: Alanine Aminotransferase 15 U/L (0-33); Alkaline Phosphatase 88 IU/L (35-105); Anion Gap 12.8 (5-19); Aspartate Amino Transferase 14 U/L (0-32); Blood Urea Nitrogen 13 mg/dL (6-20); Calcium 9.5 mg/dL (8.5-10.5); Carbon Dioxide 27 mmol/L (22-29); Chloride 101 mmol/L (98-107); Globulin 2.3 g/dL (1.3-4.6); Glucose 127 mg/dL (65-115); Osmolality Calculated 286 mOsm/kg (285-295); Potassium 3.8 mmol/L (3.5-5.1); Sodium 137 mmol/L (136-145); Total Bilirubin 0.3 mg/dL (0.15-1.2); Total Protein 6.3 g/dL (6.6-8.7)
--- NOTE | 2020-09-12 10:05 | XR_ITS ---
WS: [id number] SHOULDER RIGHT TECHNIQUE: 3 views of the right shoulder CLINICAL INFORMATION: HISTORY OF TRAUMA BONE PAIN COMPARISON: None. FINDINGS: Normal acromioclavicular joint. Normal glenohumeral joint. Acromion is normal in appearance. Normal g lenoid. No evidence of acute fracture dislocation. Postoperative changes plate and screw fixation low er cervical and upper thoracic spine. XR/XR shoulder RT min 2V* [id number] IMPRESSION: No acute right shoulder findings.
--- NOTE | 2020-09-12 17:07 | ONC FU_ITS ---
Dr. Landeros follow up note Patient: Lisbeth Fermin Unit #: [id number]: 1965 Dicatated By: Andrei Landeros M.D.Date of Visit:Sep 12, 2020 Onc Med Follow-up/Prog Note History of Present Illness: Mrs. Fermin is a 54-year-old female with a history of right breast mass. In November 2019 she noted a mass in her right breast. As it did not go away, she underwent mammogram which showed a mass in her right breast. She underwent ultrasound of right breast which showed a mass at 10-12:00, large irregular hypoechoic solid lesion taller than wide, measuring 3.8 x 2.1 x 4.9 cm. The mass was highly suspicious for malignancy. She also had an adjacent smaller solid satellite nodules measuring 1.9 x 1.4 x 1.2 cm and 0.9 x 0.5 x 0.6 cm mass. She then underwent ultrasound-guided core needle biopsies on 01/21/2020. The pathology reported invasive ductal carcinoma of breast. Positive in 5 out of 5 core biopsies. ER/[place] negative e.g. (less than 1% although in the report [place] was mentioned positive but it was less than 1% and went confirmed with pathology, Dr. Mckinnon said it should be negative). HER-2/cristobal negative as well. Mrs Fermin underwent right breast wide excisional lumpectomy on 02/10/2020. The final pathology report confirmed invasive tumor 5.5 x 4.5 x 3.5 cm. focally extends to the inked posterior margin; remaining margins free of invasive carcinoma. Extensive ductal carcinoma in situ with focal apocrine features, high nuclear grade, carcinoma in situ extends to within 1 mm of inked inferior margin, and remaining margins were free., Complex sclerosing lesion, extensive sclerosing adenosis, fibrocystic changes, cystic and papillary apocrine metaplasia. One sentinel lymph node was removed and examined showed no evidence of metastatic disease. She underwent reexcision of positive surgical margin on 02/24/2020 and obtain clear surgical margins. Mrs Fermin denies any history of bony pains except chronic right shoulder rotator cuff and history of right knee replacement. History of smoking, occasional alcohol use. Menarche at age 15, first at age 26, no history of hormone use. Last menstrual period was in December 2018. Mrs Fermin was offered treatment of her triple negative, sentinel node negative breast cancer with Adriamycin Cytoxan dose dense for 4 cycles followed by Taxotere for 12 weeks. She began her first cycle of chemotherapy on April 04, 2020. We have planned to exchange weekly Taxotere with weekly Abraxane due to significant side effects with steroids. She had significant hyperglycemia, insomnia, worsening anxiety, and mood swings. That was with 1 dose that was inadvertently taken in preparation for her first chemotherapy with Adriamycin and Cytoxan. She has completed 4 cycles of dose dense Adriamycin Cytoxan.. She was intolerant to oral steroids (she inadvertently took dexamethasone with her first cycle of AC) in that she had significant hyperglycemia, severe mood swings, insomnia and severe anxiety on the day of and day after she took them. That is why instead of weekly Taxol, she was offered weekly Abraxane, 3 weeks on 1 week off x 4 cycles, Which started on May 30, 2020. She completed 2 weekly doses from 05/30 to 06/06/2020. She was delayed on 06/13/2020 due to performance status and her mother in law's /. She resumed treatment on 06/20/2020 tolerating adjuvant chemotherapy with Abraxane well Him for follow-up, denies any specific complaint except chronic pain now progressive right shoulder pain, recently underwent physical therapy with that pain got worse requiring more pain medication also complaining of bilateral knee pain, she is status post right knee replacement and now waiting for left knee replacement. Requiring narcotic pain medication to stay comfortable. Otherwise denies any fever or chills denies any nausea or vomiting denies any diarrhea or constipation denies any peripheral neuropathy, tolerating Abraxane well. Medications: ALPRAZolam 1 (1 mg) Tablet Oral t.i.d. PRN, Claritin 1 Tablet (of 10 mg) Oral at bedtime, Cymbalta 1 (30 mg) Capsule Delayed Release Particles Oral daily, Lidocaine-Prilocaine 1 (2.5-2.5 %) Cream Topical daily PRN, LORazepam 0.5 - 1 Tablet (of 1 mg) Oral t.i.d. PRN, Methocarbamol 1 - 2 Tablet (of 750 mg) Oral t.i.d. PRN, Ondansetron HCl 1 - 2 Tablet (of 4 mg) Oral four times a day PRN, Prochlorperazine Maleate 1 Tablet (of 10 mg) Oral q 4 hours PRN, Xarelto 1 Tablet (of 15 mg) Oral b.i.d. Allergies: Latex and Penicillins. Review of Systems: Constitutional - Appetite is good and weight is stable. No fever, night sweats, or hot flashes. Energy level is fair, ENMT - No sinus congestion/drainage. No mouth sores. No sore throat or difficulty swallowing, Hematologic/Lymphatic - No abnormal bruising or bleeding, Respiratory - No shortness of breath. No cough. No pleuritic pain or hemoptysis, Cardiovascular - No angina pain. No palpitations, Gastrointestinal - Occasional nausea and vomiting. Positive for heartburn, no acid reflux. No diarrhea or constipation. No blood in the stool or black stools, Genitourinary (F) - No dysuria or hematuria. No urinary frequency. No urgency or incontinence, Musculoskeletal - Positive for joint pain, specifically Right shoulder, Neurologic - No headache or dizziness. No numbness or tingling. No other focal neurologic symptoms, Psychiatric - Positive for anxiety, no depression. Positive for occasional bouts of insomnia. Vital Signs: Performed on Sep 12, 2020 08:48 Height - 72.00 in Weight - 244.4 lbs (LOW) BSA - 2.32 sq.m BMI - 33.15 (HIGH) Temperature - 97.0 F (LOW) Pulse - 92 /min Respiration - 16 /min BP - 134/89 mm(hg) O2 Sat - 97 % Pain - 9 Performance Status: 0 - Fully active, able to carry on all predisease activities without restrictions. (ECOG) Physical Examination: Respiratory - Lungs are clear to auscultation, Cardiovascular - Regular rate and rhythm of heart, Gastrointestinal - Soft, bowel sounds present, Extremities - No visible edema, no swelling in the right shoulder or bilateral knee. Lab/Imaging: Test performed on Jul 10, 2020 09:12 Sodium 137 mmol/L Potassium 4.1 mmol/L Chloride 103 mmol/L CO2 24 mmol/L Anion Gap 14.1 BUN 14 mg/dL Creatinine 0.7 mg/dL Cr Clearance (Est) 169.3200 mL/min eGFR 87.5 mL/min Glucose 145 mg/dL Calcium 8.6 mg/dL Protein, Total 7.0 g/dL Albumin 4.2 g/dL Globulin 2.8 g/dL Bilirubin, Total 0.3 mg/dL ALT (SGPT) 25 U/L AST (SGOT) 20 U/L Alkaline Phosphatase 92 IU/L Test performed on Jun 06, 2020 10:35 Ferritin 212 ng/mL Iron 28 mcg/dL Vitamin B12 > 2000 pg/mL Iron Binding Capacity (TIBC) 204 mcg/dl % Iron Saturation 13.7 % UIBC 176 mcg/dL Test performed on May 29, 2020 10:06 WBC 3.9 10 3/uL RBC 3.70 10 6/uL HGB 10.8 g/dL HCT 33.7 % MCV 91.1 fL MCH 29.2 pg MCHC 32.0 g/dL RDW 14.6 % Platelet Count 251 10 3/cmm MPV 9.6 fL Neutrophils 2.16 10 3/uL Lymphocytes 0.5 10 3/uL Monocytes 0.8 10 3/uL Eosinophils 0.0 10 3/uL Basophils 0.1 10 3/uL Neutrophil % 55.8 % Lymphocyte % 12.7 % Monocyte % 21.4 % Eosinophil % 0.3 % Basophils % 1.3 % NRBC % 1.0 % CBC Slide Review Slide Review Perform SLIDE REVIEW AGREES WITH AUTOMATED RESULTS ST Impression: Invasive ductal carcinoma status post right breast wide excisional lumpectomy done on 02/09/2019 final pathology report showed invasive ductal carcinoma 5.5 x 4.5 x 3.5 cm, focally extends to the inked posterior margin, extensive ductal carcinoma in situ with focal apocrine features, high nuclear grade. Followed by reexcision of often involved margin on 02/24/2020 with clear margins pT3 and 1 sentinel lymph node was examined showed no evidence of metastatic disease pNo stage IIB, ER/[place]/HER-2/cristobal negative with high Ki-67 e.g. 38%. chronic right shoulder pain due to rotator cuff Dr Landeros discussed with Mrs Fermin her disease status. She has locally advanced disease e.g. T3 lesion, status post wide excision of right breast lumpectomy/partial mastectomy with clear surgical margins and 1 sentinel lymph node was examined showed no evidence of metastatic disease, clinical stage IIB. Breast cancer prognostic profiling showed triple negative disease e.g. ER/[place]/HER-2/cristobal negative. Being triple negative and locally advanced disease, Mrs Zander echeverriais a candidate for adjuvant chemotherapy. As per NCCN guidelines, dense Adriamycin Cytoxan e.g. every 2 weeks ???4 with Neulasta support to prevent chemotherapy-induced neutropenia-Followed by weekly Taxol ???12, followed by postlumpectomy radiation therapy was the initial treatment plan. As discussed previously she had significant hyperglycemia, anxiety, insomnia and palpitations with an inadvertently taken steroid premed prior to her chemotherapy on cycle 1 day 1. It was felt that she wouold not tolerate the steroids required for the Taxol and we did pursue obtaining Abraxane for her. She has now completed 4 cycles of Adriamycin Cytoxan. She has experienced expected side effects but overall has tolerated it well. She began her taxane portion of her treatment plan on 05/30/2020. She is only been able to complete 2 consecutive weeks her cycle. She most likely change her cycles to 2 out of every 3 weeks for total of [address] Landeros's last note. She has had trouble with performance status even with 2 consecutive weeks. The week off has dramatically improved performance status and she is tolerating chemo well overall all 2 weeks on 1 week off. Plan: Discussed with patient regarding her labs white blood count 3.3 hemoglobin 12.3 hematocrit 39.8 platelets 300,000 ANC 1.68 CMP within normal limits Clinically, patient doing reasonably well, tolerating adjuvant therapy with weekly Abraxane well but with expected side effect e.g. progressive neutropenia/leukopenia, we will hold her scheduled weekly dose of Abraxane today and then she will return to clinic in 1 week with CBC if her neutropenia/leukopenia resolved we will proceed with second last dose of weekly Abraxane. As far as, progressive right shoulder pain and right upper chest pain is concerned, could be due to musculoskeletal but patient is concerned, at this point will consider x-ray right shoulder/chest x-ray to assess any bone damage. And she will return to clinic in 1 week with CBC if it shows resolution of neutropenia/leukopenia will consider cycle #11/12 with weekly Abraxane. And also review her chest x-ray and right shoulder x-ray. As per his chronic, musculoskeletal pain is concerned, we will refer her to pain clinic for evaluation and management. Signed By: Andrei Landeros M.D. <<Signature on File>>
--- NOTE | 2020-09-15 09:23 | ONC FU_ITS ---
Dr. Landeros follow up note Patient: Lisbeth Fermin Unit #: [id number]: 1965 Dicatated By: Andrei Landeros M.D.Date of Visit:Aug 22, 2020 Onc Med Follow-up/Prog Note History of Present Illness: Mrs. Fermin is a 54-year-old female with a history of right breast mass. In November 2019 she noted a mass in her right breast. As it did not go away, she underwent mammogram which showed a mass in her right breast. She underwent ultrasound of right breast which showed a mass at 10-12:00, large irregular hypoechoic solid lesion taller than wide, measuring 3.8 x 2.1 x 4.9 cm. The mass was highly suspicious for malignancy. She also had an adjacent smaller solid satellite nodules measuring 1.9 x 1.4 x 1.2 cm and 0.9 x 0.5 x 0.6 cm mass. She then underwent ultrasound-guided core needle biopsies on 01/21/2020. The pathology reported invasive ductal carcinoma of breast. Positive in 5 out of 5 core biopsies. ER/[place] negative e.g. (less than 1% although in the report [place] was mentioned positive but it was less than 1% and went confirmed with pathology, Dr. Mckinnon said it should be negative). HER-2/cristobal negative as well. Mrs Fermin underwent right breast wide excisional lumpectomy on 02/10/2020. The final pathology report confirmed invasive tumor 5.5 x 4.5 x 3.5 cm. focally extends to the inked posterior margin; remaining margins free of invasive carcinoma. Extensive ductal carcinoma in situ with focal apocrine features, high nuclear grade, carcinoma in situ extends to within 1 mm of inked inferior margin, and remaining margins were free., Complex sclerosing lesion, extensive sclerosing adenosis, fibrocystic changes, cystic and papillary apocrine metaplasia. One sentinel lymph node was removed and examined showed no evidence of metastatic disease. She underwent reexcision of positive surgical margin on 02/24/2020 and obtain clear surgical margins. Mrs Fermin denies any history of bony pains except chronic right shoulder rotator cuff and history of right knee replacement. History of smoking, occasional alcohol use. Menarche at age 15, first at age 26, no history of hormone use. Last menstrual period was in December 2018. Mrs Fermin was offered treatment of her triple negative, sentinel node negative breast cancer with Adriamycin Cytoxan dose dense for 4 cycles followed by Taxotere for 12 weeks. She began her first cycle of chemotherapy on April 04, 2020. We have planned to exchange weekly Taxotere with weekly Abraxane due to significant side effects with steroids. She had significant hyperglycemia, insomnia, worsening anxiety, and mood swings. That was with 1 dose that was inadvertently taken in preparation for her first chemotherapy with Adriamycin and Cytoxan. She has completed 4 cycles of dose dense Adriamycin Cytoxan.. She was intolerant to oral steroids (she inadvertently took dexamethasone with her first cycle of AC) in that she had significant hyperglycemia, severe mood swings, insomnia and severe anxiety on the day of and day after she took them. That is why instead of weekly Taxol, she was offered weekly Abraxane, 3 weeks on 1 week off x 4 cycles, Which started on May 30, 2020. She completed 2 weekly doses from 05/30 to 06/06/2020. She was delayed on 06/13/2020 due to performance status and her mother in law's /. She resumed treatment on 06/20/2020 Came for follow-up, denies any specific complaints, no fever chills, no nausea or vomiting, no diarrhea constipation but patient had episode of nausea vomiting about a week ago, which was probably due to food poisoning as she had no fever and it resolved on its own, responded well to antianxiety medication. Otherwise tolerating weekly Abraxane well Medications: ALPRAZolam 1 (1 mg) Tablet Oral t.i.d. PRN, Claritin 1 Tablet (of 10 mg) Oral at bedtime, Cymbalta 1 (30 mg) Capsule Delayed Release Particles Oral daily, Lidocaine-Prilocaine 1 (2.5-2.5 %) Cream Topical daily PRN, LORazepam 0.5 - 1 Tablet (of 1 mg) Oral t.i.d. PRN, Methocarbamol 1 - 2 Tablet (of 750 mg) Oral t.i.d. PRN, Ondansetron HCl 1 - 2 Tablet (of 4 mg) Oral four times a day PRN, Prochlorperazine Maleate 1 Tablet (of 10 mg) Oral q 4 hours PRN, Xarelto 1 Tablet (of 15 mg) Oral b.i.d. Allergies: Latex and Penicillins. Review of Systems: Review of Systems is not available for this patient. Vital Signs: Performed on Aug 22, 2020 11:08 Height - 72.00 in Weight - 251.8 lbs (HIGH) BSA - 2.35 sq.m BMI - 34.15 (HIGH) Temperature - 97.4 F (LOW) Pulse - 78 /min Respiration - 24 /min BP - 153/83 mm(hg) (HIGH) O2 Sat - 100 % Pain - 0 Performance Status: 0 - Fully active, able to carry on all predisease activities without restrictions. (ECOG) Physical Examination: Respiratory - Lungs are clear to auscultation, Cardiovascular - Regular rate and rhythm of heart, Gastrointestinal - Soft, bowel sounds present, Extremities - No visible edema or rash. Lab/Imaging: Test performed on Sep 11, 2020 09:05 Sodium 137 mmol/L Potassium 3.8 mmol/L Chloride 101 mmol/L CO2 27 mmol/L Anion Gap 12.8 BUN 13 mg/dL Creatinine 0.8 mg/dL Cr Clearance (Est) 148.1500 mL/min eGFR 75.0 mL/min Glucose 127 mg/dL Osmolality - Calculated 286 mOsm/kg Calcium 9.5 mg/dL Protein, Total 6.3 g/dL Albumin 4.0 g/dL Globulin 2.3 g/dL Bilirubin, Total 0.3 mg/dL ALT (SGPT) 15 U/L AST (SGOT) 14 U/L Alkaline Phosphatase 88 IU/L WBC 3.3 10 3/uL RBC 4.68 10 6/uL HGB 12.3 g/dL HCT 39.8 % MCV 85.0 fL MCH 26.3 pg MCHC 30.9 g/dL RDW 15.0 % Platelet Count 300 10 3/cmm MPV 9.9 fL Neutrophils 1.68 10 3/uL Lymphocytes 1.0 10 3/uL Monocytes 0.5 10 3/uL Eosinophils 0.1 10 3/uL Basophils 0.0 10 3/uL Neutrophil % 51.1 % Lymphocyte % 31.3 % Monocyte % 14.6 % Eosinophil % 1.5 % Basophils % 1.2 % NRBC % 0 % Test performed on Jun 26, 2020 12:10 Manual Diff ONC REORDERED/KINME Test performed on Jun 06, 2020 10:35 Ferritin 212 ng/mL Iron 28 mcg/dL Vitamin B12 > 2000 pg/mL Iron Binding Capacity (TIBC) 204 mcg/dl % Iron Saturation 13.7 % UIBC 176 mcg/dL Test performed on May 29, 2020 10:06 CBC Slide Review Slide Review Perform SLIDE REVIEW AGREES WITH AUTOMATED RESULTS ST Impression: Invasive ductal carcinoma status post right breast wide excisional lumpectomy done on 02/09/2019 final pathology report showed invasive ductal carcinoma 5.5 x 4.5 x 3.5 cm, focally extends to the inked posterior margin, extensive ductal carcinoma in situ with focal apocrine features, high nuclear grade. Followed by reexcision of often involved margin on 02/24/2020 with clear margins pT3 and 1 sentinel lymph node was examined showed no evidence of metastatic disease pNo stage IIB, ER/[place]/HER-2/cristobal negative with high Ki-67 e.g. 38%. chronic right shoulder pain due to rotator cuff Dr Landeros discussed with Mrs Fermin her disease status. She has locally advanced disease e.g. T3 lesion, status post wide excision of right breast lumpectomy/partial mastectomy with clear surgical margins and 1 sentinel lymph node was examined showed no evidence of metastatic disease, clinical stage IIB. Breast cancer prognostic profiling showed triple negative disease e.g. ER/[place]/HER-2/cristobal negative. Being triple negative and locally advanced disease, Mrs Zander echeverriais a candidate for adjuvant chemotherapy. As per NCCN guidelines, dense Adriamycin Cytoxan e.g. every 2 weeks ???4 with Neulasta support to prevent chemotherapy-induced neutropenia-Followed by weekly Taxol ???12, followed by postlumpectomy radiation therapy was the initial treatment plan. As discussed previously she had significant hyperglycemia, anxiety, insomnia and palpitations with an inadvertently taken steroid premed prior to her chemotherapy on cycle 1 day 1. It was felt that she wouold not tolerate the steroids required for the Taxol and we did pursue obtaining Abraxane for her. She has now completed 4 cycles of Adriamycin Cytoxan. She has experienced expected side effects but overall has tolerated it well. She began her taxane portion of her treatment plan on 05/30/2020. She is only been able to complete 2 consecutive weeks her cycle. She most likely change her cycles to 2 out of every 3 weeks for total of [address] Landeros's last note. She has had trouble with performance status even with 2 consecutive weeks. The week off has dramatically improved performance status and she is tolerating chemo well overall all 2 weeks on 1 week off. Plan: Discussed with patient regarding her labs white blood count 4.8 hemoglobin 11.7 hematocrit 37.4 platelets 330,000 CMP within normal limits Clinically, patient doing well, tolerating weekly Abraxane, well but with expected side effects including generalized weakness and fatigue, mild anemia. We will proceed with next weekly dose #9/12 today then she will return to clinic in 1 week with CBC CMP, please level for next dose of chemotherapy with Abraxane. Signed By: Andrei Landeros M.D. <<Signature on File>>
== END 2020-09-16 23:59 | disposition home or self-care (01) ==
LOC: ONCMED 10:02
PROVIDERS: Nurse Practitioner; PCP Internal Medicine; Visit Provider Internal Medicine Hematology & Oncology
DX: Z51.11 Encounter for antineoplastic chemotherapy (principal); C50.411 Malignant neoplasm of upper-outer quadrant of right female breast; Z17.1 Estrogen receptor negative status [ER-]; M25.511 Pain in right shoulder; R07.89 Other chest pain; M25.611 Stiffness of right shoulder, not elsewhere classified; M89.8X1 Other specified disorders of bone, shoulder; D70.1 Agranulocytosis secondary to cancer chemotherapy; T45.1X5A Adverse effect of antineoplastic and immunosuppressive drugs, initial encounter; Z87.828 Personal history of other (healed) physical injury and trauma; Z79.899 Other long term (current) drug therapy; Z87.891 Personal history of nicotine dependence
CPT/HCPCS: 36591; 73030; 80053; 85025; 96367; 96413; 99214; J1100; J2469; J3490; J7050; J9264

== ENCOUNTER 2020-10-04 05:39 | Outpatient (RCR) | payer MEDICAID, SELFPAY ==
[2020-09-20 10:47] LABS: Basophils # 0.1 10^3/uL (0.0-0.1); Basophils % 0.7 %; Eosinophils # 0.1 10^3/uL (0.0-0.8); Eosinophils % 0.9 %; Hematocrit 40.5 % (37.0-47.0); Hemoglobin 12.8 g/dL (11.5-15.3); Lymphocytes # 1.2 10^3/uL (0.8-4.8); Lymphocytes % 15.4 %; Mean Corpuscular HGB Conc 31.6 g/dL (30.0-36.0); Mean Corpuscular Hemoglobin 26.4 pg (28.0-34.0); Mean Corpuscular Volume 83.7 fL (81-99); Mean Platelet Volume 9.9 fL (7.4-10.4); Monocytes # 0.5 10^3/uL (0.2-0.9); Monocytes % 6.1 %; Neutrophils # 5.74 10^3/uL (1.8-7.7); Neutrophils % 76.6 %; Nucleated Red Blood Cells % 0 %; Platelet Count 269 10^3/cmm (130-400); Red Blood Count 4.84 10^6/uL (4.1-5.3); Red Cell Distribution Width 15.3 % (12.1-15.1); White Blood Count 7.5 10^3/uL (4.0-10.0)
[2020-09-20 11:06] LABS: Alanine Aminotransferase 16 U/L (0-33); Alkaline Phosphatase 95 IU/L (35-105); Anion Gap 12.1 (5-19); Aspartate Amino Transferase 17 U/L (0-32); Blood Urea Nitrogen 12 mg/dL (6-20); Calcium 8.9 mg/dL (8.5-10.5); Carbon Dioxide 27 mmol/L (22-29); Chloride 101 mmol/L (98-107); Globulin 2.5 g/dL (1.3-4.6); Glucose 118 mg/dL (65-115); Osmolality Calculated 283 mOsm/kg (285-295); Potassium 4.1 mmol/L (3.5-5.1); Sodium 136 mmol/L (136-145); Total Bilirubin 0.3 mg/dL (0.15-1.2); Total Protein 6.5 g/dL (6.6-8.7)
[2020-09-21] MEDS: sodium chloride 0.9% 250 ML IV (10:26)
--- NOTE | 2020-09-22 11:33 | ONC FU_ITS ---
Dr. Landeros follow up note Patient: Lisbeth Fermin Unit #: [id number]: 1965 Dicatated By: Andrei Landeros M.D.Date of Visit:Sep 21, 2020 Onc Med Follow-up/Prog Note History of Present Illness: Mrs. Fermin is a 54-year-old female with a history of right breast mass. In November 2019 she noted a mass in her right breast. As it did not go away, she underwent mammogram which showed a mass in her right breast. She underwent ultrasound of right breast which showed a mass at 10-12:00, large irregular hypoechoic solid lesion taller than wide, measuring 3.8 x 2.1 x 4.9 cm. The mass was highly suspicious for malignancy. She also had an adjacent smaller solid satellite nodules measuring 1.9 x 1.4 x 1.2 cm and 0.9 x 0.5 x 0.6 cm mass. She then underwent ultrasound-guided core needle biopsies on 01/21/2020. The pathology reported invasive ductal carcinoma of breast. Positive in 5 out of 5 core biopsies. ER/NH negative e.g. (less than 1% although in the report NH was mentioned positive but it was less than 1% and went confirmed with pathology, Dr. Mckinnon said it should be negative). HER-2/cristobal negative as well. Mrs Fermin underwent right breast wide excisional lumpectomy on 02/10/2020. The final pathology report confirmed invasive tumor 5.5 x 4.5 x 3.5 cm. focally extends to the inked posterior margin; remaining margins free of invasive carcinoma. Extensive ductal carcinoma in situ with focal apocrine features, high nuclear grade, carcinoma in situ extends to within 1 mm of inked inferior margin, and remaining margins were free., Complex sclerosing lesion, extensive sclerosing adenosis, fibrocystic changes, cystic and papillary apocrine metaplasia. One sentinel lymph node was removed and examined showed no evidence of metastatic disease. She underwent reexcision of positive surgical margin on 02/24/2020 and obtain clear surgical margins. Mrs Fermin denies any history of bony pains except chronic right shoulder rotator cuff and history of right knee replacement. History of smoking, occasional alcohol use. Menarche at age 15, first at age 26, no history of hormone use. Last menstrual period was in December 2018. Mrs Fermin was offered treatment of her triple negative, sentinel node negative breast cancer with Adriamycin Cytoxan dose dense for 4 cycles followed by Taxotere for 12 weeks. She began her first cycle of chemotherapy on April 04, 2020. We have planned to exchange weekly Taxotere with weekly Abraxane due to significant side effects with steroids. She had significant hyperglycemia, insomnia, worsening anxiety, and mood swings. That was with 1 dose that was inadvertently taken in preparation for her first chemotherapy with Adriamycin and Cytoxan. She has completed 4 cycles of dose dense Adriamycin Cytoxan.. She was intolerant to oral steroids (she inadvertently took dexamethasone with her first cycle of AC) in that she had significant hyperglycemia, severe mood swings, insomnia and severe anxiety on the day of and day after she took them. That is why instead of weekly Taxol, she was offered weekly Abraxane, 3 weeks on 1 week off x 4 cycles, Which started on May 30, 2020. She completed 2 weekly doses from 05/30 to 06/06/2020. She was delayed on 06/13/2020 due to performance status and her mother in law's /. She resumed treatment on 06/20/2020 tolerating adjuvant chemotherapy with Abraxane well Patient with history of chronic right shoulder pain, x-ray of right shoulder was done on September 12, 2020 which shows no acute right shoulder finding. Came for follow-up, denies any specific complaints, except chronic right shoulder pain, she was supposed to see orthopedics prior to diagnosed with breast cancer, because of progressive right shoulder pain right shoulder x-ray was done which shows no acute abnormality. No fever chills, no nausea or vomiting, no diarrhea constipation, tolerating adjuvant therapy with weekly Abraxane well Medications: ALPRAZolam 1 (1 mg) Tablet Oral t.i.d. PRN, Claritin 1 Tablet (of 10 mg) Oral at bedtime, Cymbalta 1 (30 mg) Capsule Delayed Release Particles Oral daily, Lidocaine-Prilocaine 1 (2.5-2.5 %) Cream Topical daily PRN, LORazepam 0.5 - 1 Tablet (of 1 mg) Oral t.i.d. PRN, Methocarbamol 1 - 2 Tablet (of 750 mg) Oral t.i.d. PRN, Ondansetron HCl 1 - 2 Tablet (of 4 mg) Oral four times a day PRN, Prochlorperazine Maleate 1 Tablet (of 10 mg) Oral q 4 hours PRN, Xarelto 1 Tablet (of 15 mg) Oral b.i.d. Allergies: Latex and Penicillins. Review of Systems: Constitutional - Appetite is good and weight is stable. No fever, night sweats, or hot flashes. Energy level is fair, ENMT - No sinus congestion/drainage. No mouth sores. No sore throat or difficulty swallowing, Hematologic/Lymphatic - No abnormal bruising or bleeding, Respiratory - No shortness of breath. No cough. No pleuritic pain or hemoptysis, Cardiovascular - No angina pain. No palpitations, Gastrointestinal - Occasional nausea and vomiting. Positive for heartburn, no acid reflux. No diarrhea or constipation. No blood in the stool or black stools, Genitourinary (F) - No dysuria or hematuria. No urinary frequency. No urgency or incontinence, Musculoskeletal - Positive for joint pain, specifically Right shoulder, Neurologic - No headache or dizziness. No numbness or tingling. No other focal neurologic symptoms, Psychiatric - Positive for anxiety, no depression. Positive for occasional bouts of insomnia. Vital Signs: Performed on Sep 21, 2020 09:15 Height - 72.00 in Weight - 240.0 lbs (LOW) BSA - 2.30 sq.m BMI - 32.55 (HIGH) Temperature - 98.3 F (LOW) Pulse - 88 /min Respiration - 24 /min BP - 147/92 mm(hg) (HIGH) O2 Sat - 99 % Pain - 6 Performance Status: 0 - Fully active, able to carry on all predisease activities without restrictions. (ECOG) Physical Examination: Respiratory - Lungs are clear to auscultation, Cardiovascular - Regular rate and rhythm of heart, Gastrointestinal - Soft, bowel sounds present, Extremities - No visible edema or rash. Lab/Imaging: Test performed on Sep 20, 2020 10:35 Sodium 136 mmol/L Potassium 4.1 mmol/L Chloride 101 mmol/L CO2 27 mmol/L Anion Gap 12.1 BUN 12 mg/dL Creatinine 0.8 mg/dL Cr Clearance (Est) 148.1500 mL/min eGFR 75.0 mL/min Glucose 118 mg/dL Osmolality - Calculated 283 mOsm/kg Calcium 8.9 mg/dL Protein, Total 6.5 g/dL Albumin 4.0 g/dL Globulin 2.5 g/dL Bilirubin, Total 0.3 mg/dL ALT (SGPT) 16 U/L AST (SGOT) 17 U/L Alkaline Phosphatase 95 IU/L WBC 7.5 10 3/uL RBC 4.84 10 6/uL HGB 12.8 g/dL HCT 40.5 % MCV 83.7 fL MCH 26.4 pg MCHC 31.6 g/dL RDW 15.3 % Platelet Count 269 10 3/cmm MPV 9.9 fL Neutrophils 5.74 10 3/uL Lymphocytes 1.2 10 3/uL Monocytes 0.5 10 3/uL Eosinophils 0.1 10 3/uL Basophils 0.1 10 3/uL Neutrophil % 76.6 % Lymphocyte % 15.4 % Monocyte % 6.1 % Eosinophil % 0.9 % Basophils % 0.7 % NRBC % 0 % Test performed on Jun 26, 2020 12:10 Manual Diff ONC REORDERED/KINME Test performed on Jun 06, 2020 10:35 Ferritin 212 ng/mL Iron 28 mcg/dL Vitamin B12 > 2000 pg/mL Iron Binding Capacity (TIBC) 204 mcg/dl % Iron Saturation 13.7 % UIBC 176 mcg/dL Test performed on May 29, 2020 10:06 CBC Slide Review Slide Review Perform SLIDE REVIEW AGREES WITH AUTOMATED RESULTS ST Impression: Invasive ductal carcinoma status post right breast wide excisional lumpectomy done on 02/09/2019 final pathology report showed invasive ductal carcinoma 5.5 x 4.5 x 3.5 cm, focally extends to the inked posterior margin, extensive ductal carcinoma in situ with focal apocrine features, high nuclear grade. Followed by reexcision of often involved margin on 02/24/2020 with clear margins pT3 and 1 sentinel lymph node was examined showed no evidence of metastatic disease pNo stage IIB, ER/NH/HER-2/cristobal negative with high Ki-67 e.g. 38%. chronic right shoulder pain due to rotator cuff discussed with Mrs Fermin her disease status. She has locally advanced disease e.g. T3 lesion, status post wide excision of right breast lumpectomy/partial mastectomy with clear surgical margins and 1 sentinel lymph node was examined showed no evidence of metastatic disease, clinical stage IIB. Breast cancer prognostic profiling showed triple negative disease e.g. ER/NH/HER-2/cristobal negative. Being triple negative and locally advanced disease, Mrs Zander echeverriais a candidate for adjuvant chemotherapy. As per NCCN guidelines, dense Adriamycin Cytoxan e.g. every 2 weeks ???4 with Neulasta support to prevent chemotherapy-induced neutropenia-Followed by weekly Taxol ???12, followed by postlumpectomy radiation therapy was the initial treatment plan. As discussed previously she had significant hyperglycemia, anxiety, insomnia and palpitations with an inadvertently taken steroid premed prior to her chemotherapy on cycle 1 day 1. It was felt that she wouold not tolerate the steroids required for the Taxol and we did pursue obtaining Abraxane for her. She has now completed 4 cycles of Adriamycin Cytoxan. She has experienced expected side effects but overall has tolerated it well. She began her taxane portion of her treatment plan on 05/30/2020. She is only been able to complete 2 consecutive weeks her cycle. She most likely change her cycles to 2 out of every 3 weeks for total of 12 treatments per She has had trouble with performance status even with 2 consecutive weeks. The week off has dramatically improved performance status and she is tolerating chemo well overall all 2 weeks on 1 week off. Plan: Discussed with patient regarding her labs white blood count 7.5 hemoglobin 12.8 hematocrit 40.5 platelets 269,000 CMP within normal limits, X-ray right shoulder done recently showed no acute changes. Clinically, patient is doing well, tolerating adjuvant chemotherapy with weekly Abraxane well, will proceed with cycle #11/12 today and then she will return to clinic in 1 week with CBC CMP and if looks reasonable for final dose of adjuvant chemotherapy and then will also consider referring her to radiation oncology for evaluation for post lumpectomy radiation therapy. As far as, right shoulder pain is concerned probably due to bursitis/tendinitis/osteoarthritis, patient was supposed to see orthopedics prior to diagnosis of breast cancer but it was postponed. Patient will conclude her adjuvant chemotherapy next week and after that we will refer her to orthopedics for evaluation. Signed By: Andrei Landeros M.D. <<Signature on File>>
[2020-09-27] MEDS: alteplase 1 mg/mL SDV 2 mL 2 MG IV (15:00)
[2020-09-27 15:22] LABS: Red Blood Count 4.84 10^6/uL (4.1-5.3); White Blood Count 6.4 10^3/uL (4.0-10.0)
[2020-09-27 15:23] LABS: Basophils # 0.1 10^3/uL (0.0-0.1); Basophils % 0.8 %; Eosinophils % 0.5 %; Hematocrit 40.4 % (37.0-47.0); Hemoglobin 12.6 g/dL (11.5-15.3); Lymphocytes % 14.8 %; Mean Corpuscular HGB Conc 31.2 g/dL (30.0-36.0); Mean Corpuscular Volume 83.5 fL (81-99); Mean Platelet Volume 10.2 fL (7.4-10.4); Monocytes # 0.1 10^3/uL (0.2-0.9); Monocytes % 2.2 %; Neutrophils # 5.21 10^3/uL (1.8-7.7); Neutrophils % 81.4 %; Nucleated Red Blood Cells % 0 %; Platelet Count 259 10^3/cmm (130-400); Red Cell Distribution Width 15.3 % (12.1-15.1)
[2020-09-27 16:01] LABS: Alanine Aminotransferase 14 U/L (0-33); Albumin Level 4.4 g/dL (3.5-5.2); Alkaline Phosphatase 87 IU/L (35-105); Anion Gap 11.8 (5-19); Aspartate Amino Transferase 13 U/L (0-32); Blood Urea Nitrogen 13 mg/dL (6-20); Calcium 9.4 mg/dL (8.5-10.5); Carbon Dioxide 26 mmol/L (22-29); Chloride 101 mmol/L (98-107); Globulin 2.2 g/dL (1.3-4.6); Glomerular Filtration Rate 104.6 mL/min (90-130); Glucose 154 mg/dL (65-115); Osmolality Calculated 283 mOsm/kg (285-295); Potassium 3.8 mmol/L (3.5-5.1); Sodium 135 mmol/L (136-145); Total Bilirubin 0.3 mg/dL (0.15-1.2); Total Protein 6.6 g/dL (6.6-8.7)
[2020-09-28] MEDS: sodium chloride 0.9% 250 ML IV (09:23)
--- NOTE | 2020-10-04 11:37 | N.ONRAD NP_ITS ---
Radiation Oncology Consult Patient: Lisbeth Servin MR#: [id number] : 1965> Attending Physician: Rock Will M.D. Date of Service: 10/04/2020 Lisbeth Servin was seen in consultation this morning for evaluation regarding potential adjuvant breast radiotherapy for the management of her early stage breast cancer. She presented to the [facility] in [place], [place] of this year with a palpable breast mass. A screening mammogram obtained on December 20, 2019 revealed dense breast that possibly could limit the detection of an underlying mass. A unilateral right digital mammogram completed on January 07, 2020 demonstrated asymmetry in the area of palpable concern. Breast ultrasonography confirmed within the 10-12 o??? clock position, a hypoechoic solid lesion measuring 3.8 cm x 2.1 cm x 4.9 cm, adjacent smaller satellite nodules during 1.9 cm x 1.4 cm x 1.2 cm and 0.9 cm x 0.5 cm x 0.6 cm at the 11 o???clock and 12o???clock positions. A core needle biopsy performed on January 21, 2020 diagnosed an invasive, high nuclear grade ductal carcinoma. Immunohistochemical stains were negative for estrogen receptor (<1%) and progesterone receptor (<1%), and HER-2/cristobal. The KI-67 was 24%. Pathology revealed a 5.5 cm invasive ductal carcinoma with metaplastic features, focal spindle cell type, and focal apocrine features. Extensive intraductal component was noted with the largest focus measuring 9 mm and high nuclear grade consisting of the cribriform, solid, comedo, and clinging subtypes. Comedonecrosis was also present. A total of 1 sentinel lymph node was harvested without metastatic disease. A positive posterior margin was identified. A re-excision was completed on February 24, 2020 without residual carcinoma. She received dose dense Adriamycin and cyclophosphamide for 4 cycles (April 04, 2020 through May 16, 2020 (and weekly Abraxane (May 30, 2020 through 2019). The patient presents for discussion regarding adjuvant breast radiotherapy. The patient's past medical history is significant for anxiety, depression, migraine headaches, and osteoarthritis. Her past surgical history includes arthroplasty (right knee), arthroscopy (left knee) breast biopsy, cervical fusion, foot (right), partial mastectomy with sentinel lymph node biopsy. Her obstetrical history is . Menses began at the age of 15 and menopause at the age of 52. I have reviewed the patient's medication profile which is available in the electronic medical record. She reported a drug allergy to penicillin and latex (rash). The patient's family history was unremarkable for breast cancer. The patient was unaccompanied to this consultation. She described a prior tobacco habit (1 pack/day for 25 years; quit 3 years ago) and reported occasional alcohol intake (2 days/week). On review of systems, she did not report any constitutional complaints including fevers of unknown origin or unintentional weight loss. There were no head neck complaints including diplopia, tinnitus, epistaxis, or dysphagia. She did not report breast complaints such as masses or nipple discharge nor any enlarged lymph nodes of the neck, armpit, or groin. She denied any cardiopulmonary symptoms such as angina, cough, or palpitations. On gastrointestinal review, she disavowed dyspepsia, nausea or diarrhea. There were no genitourinary complaints such as dysuria or hematuria. She described the upper extremity weakness without any other musculoskeletal complaints including bone pain or muscle weakness. There were no neurological symptoms such as headache or seizures. He does attest to paresthesias feet. On physical examination, the patient has an ECOG performance status of 0. She is 6 feet tall and weighed 238 lbs. The temperature was 97.8???F. The blood pressure was 144/89 mmHg. The pulse was 91 bpm and the respiratory rate of was 20. The head was normocephalic and alopecic. Ophthalmoscopy identified bilateral red reflexes with sharp fundi visualized. Otoscopy revealed light reflexes upon tympanic membranes. Rhinoscopy exhibited non-inflamed turbinates. The oral cavity had moist mucous membranes and no oropharyngeal exudate was present. There was no cervical adenopathy or thyromegaly. No dominant breast masses were palpated. A scar was present in the upper-outer quadrant of the right breast. Normal fremitus was noted with resonance to percussion elicited. Bronchovesicular breath sounds were auscultated in the posterior lung rodrigues. Cardiac sounds were regular in rate and rhythm. No auscultated gallops or murmurs present. No JVD noted. The abdomen had active bowel sounds. No tenderness to palpation. No evidence of organomegaly. No muscle weakness upon testing. No tenderness to deep palpation along the axial skeleton. Cranial nerves II through XII were intact. No sensory deficits. Decreased reflexes noted. Gait was normal. In summary, she presented to the [facility] in [place], [place] of this year with a palpable breast mass. A screening mammogram obtained on December 20, 2019 revealed dense breast that possibly could limit the detection of an underlying mass. A unilateral right digital mammogram completed on January 07, 2020 demonstrated asymmetry in the area of palpable concern. Breast ultrasonography confirmed within the 10-12 o??? clock position, a hypoechoic solid lesion measuring 3.8 cm x 2.1 cm x 4.9 cm, adjacent smaller satellite nodules during 1.9 cm x 1.4 cm x 1.2 cm and 0.9 cm x 0.5 cm x 0.6 cm at the 11 o???clock and 12o???clock positions. A core needle biopsy performed on January 21, 2020 diagnosed an invasive, high nuclear grade ductal carcinoma. Immunohistochemical stains were negative for estrogen receptor (<1%) and progesterone receptor (<1%), and HER-2/cristobal. The KI-67 was 24%. Pathology revealed a 5.5 cm invasive ductal carcinoma with metaplastic features, focal spindle cell type, and focal apocrine features. Extensive intraductal component was noted with the largest focus measuring 9 mm and high nuclear grade consisting of the cribriform, solid, comedo, and clinging subtypes. Comedonecrosis was also present. A total of 1 sentinel lymph node was harvested without metastatic disease. A positive posterior margin was identified. A re-excision was completed on February 24, 2020 without residual carcinoma. She received dose dense Adriamycin and cyclophosphamide for 4 cycles and weekly Abraxane. The patient presents for discussion regarding adjuvant breast radiotherapy. I reviewed with the patient her AJCC pathological stage IIIB (T3N0) breast cancer. I also discussed the classic study by NSABP comparing mastectomy, lumpectomy, and lumpectomy with radiotherapy and the Early Breast Cancer Trialist Collaborative [employer] meta-analysis. She is aware that the addition of radiotherapy to lumpectomy provides improvement in local control and overall survival. I anticipate a 3 week course of hypofractionated radiotherapy which will be implemented following CT radiotherapy planning. Toxicity of breast radiotherapy was also addressed. The patient has verbalized understanding would like to proceed as recommended. Signed by: Dr. Rock Will 10/04/2020 1:21:56 PM
--- NOTE | 2020-10-06 11:51 | N.ONRAD NP_ITS ---
Physician Clinical Treatment Planning Note Lisbeth Fermin has agreed to proceed with Radiation Therapy. The following information represents the intent for the treatment course. The final prescription reflecting the treatment parameters i.e. fractionation, energy, beam arrangement and total dose will be provided in the Prescribe Treat area of [facility] upon completion and my evaluation of the requested dosimetry planning. Clinical Evaluation: Diagnosis: C50.411 - malignant neoplasm of upper-outer quadrant of right female breast, Diagnosed 01/21/2020 (active). Right breast cancer Mrs. Fermin is a 54-year-old female with a history of right breast mass. In November 2019 she noted a mass in her right breast. As it did not go away, she underwent mammogram which showed a mass in her right breast. She underwent ultrasound of right breast which showed a mass at 10-12:00, large irregular hypoechoic solid lesion taller than wide, measuring 3.8 x 2.1 x 4.9 cm. The mass was highly suspicious for malignancy. She also had an adjacent smaller solid satellite nodules measuring 1.9 x 1.4 x 1.2 cm and 0.9 x 0.5 x 0.6 cm mass. She then underwent ultrasound-guided core needle biopsies on 01/21/2020. The pathology reported invasive ductal carcinoma of breast. Positive in 5 out of 5 core biopsies. ER/IN negative e.g. (less than 1% although in the report IN was mentioned positive but it was less than 1% and went confirmed with pathology, Dr. Mckinnon said it should be negative). HER-2/cristobal negative as well. Mrs Fermin underwent right breast wide excisional lumpectomy on 02/10/2020. The final pathology report confirmed invasive tumor 5.5 x 4.5 x 3.5 cm. focally extends to the inked posterior margin; remaining margins free of invasive carcinoma. Extensive ductal carcinoma in situ with focal apocrine features, high nuclear grade, carcinoma in situ extends to within 1 mm of inked inferior margin, and remaining margins were free., Complex sclerosing lesion, extensive sclerosing adenosis, fibrocystic changes, cystic and papillary apocrine metaplasia. One sentinel lymph node was removed and examined showed no evidence of metastatic disease. She underwent reexcision of positive surgical margin on 02/24/2020 and obtain clear surgical margins. Mrs Fermin denies any history of bony pains except chronic right shoulder rotator cuff and history of right knee replacement. History of smoking, occasional alcohol use. Menarche at age 15, first at age 26, no history of hormone use. Last menstrual period was in December 2018. Mrs Fermin was offered treatment of her triple negative, sentinel node negative breast cancer with Adriamycin Cytoxan dose dense for 4 cycles followed by Taxotere for 12 weeks. She began her first cycle of chemotherapy on April 04, 2020. We have planned to exchange weekly Taxotere with weekly Abraxane due to significant side effects with steroids. She had significant hyperglycemia, insomnia, worsening anxiety, and mood swings. That was with 1 dose that was inadvertently taken in preparation for her first chemotherapy with Adriamycin and Cytoxan. She has completed 4 cycles of dose dense Adriamycin Cytoxan.. She was intolerant to oral steroids (she inadvertently took dexamethasone with her first cycle of AC) in that she had significant hyperglycemia, severe mood swings, insomnia and severe anxiety on the day of and day after she took them. That is why instead of weekly Taxol, she was offered weekly Abraxane, 3 weeks on 1 week off x 4 cycles, Which started on May 30, 2020. She completed 2 weekly doses from 05/30 to 06/06/2020. She was delayed on 06/13/2020 due to performance status and her mother in law's /. She resumed treatment on 06/20/2020 tolerating adjuvant chemotherapy with Abraxane well Patient with history of chronic right shoulder pain, x-ray of right shoulder was done on September 12, 2020 which shows no acute right shoulder finding. Came for follow-up, denies any specific complaints, except chronic right shoulder pain, she was supposed to see orthopedics prior to diagnosed with breast cancer, because of progressive right shoulder pain right shoulder x-ray was done which shows no acute abnormality. No fever chills, no nausea or vomiting, no diarrhea constipation, tolerating adjuvant therapy with weekly Abraxane well ECOG Score: 1 - No physically strenuous activity, but ambulatory and able to carry out light or sedentary work (e.g. office work, light house work). (ECOG) Treatment Site: 3D Treatment Intent: Previous Treatment: Therapeutic Modalities: Anticipated start date: Requested Technique: Critical Structures: Physician Orders Simulation(s) will be performed to accomplish a reproducible treatment position, to determine optimal treatment portals/beam arrangements, to design beam modifying devices, and/or immobilization devices prior to the commencement of radiation therapy. Type: CT Simulation Clinical Simulation: Imaging: CT Guidance 4D CT Scan Area: Right Breast Scan Direction: Slice Thickness: Contrast: Type: In case of contrast reaction, give epinephrine I.V. push 0.5 ml repeat x1 needed. If creatinine clearance is less than 58 GFR, use Visipaque 320 IV contrast and offer post contrast hydration. Re-evaluation scan: Special Instructions: Full Bladder Empty bladder Empty rectum Breath hold Bolus Other Instructions: Immobilization Devices: Aquaplast Mask Bite Block Breast Board: Vac-Choco Shoulder Retractors Belly Board Encompass board Body Fix Dosimetry Planning: Photon Electron Image Fusion: CT MRI PET Other: Type: Isodose Planning 3D Conformal IMRT Goals / Dose Constraints: 40 Gy in 15 fxs Additional Instructions: Beam modification devices as necessary per planning Monitor unit calculation per treatment port Respiratory Motion Management Boost plannin Gy in 5 fxs Imaging: Type: Verification Simulation to confirm set up and beam parameters prior to treatment Stereoscopic Guidance: Frequency CBCT: Frequency Weekly Port Films Daily Port Films Daily kV images for set up Other Services: Special Dosimetry: Diode Electron Output Frequency: Continuing Physics: Physics check once per week Special Physics Consultation: Physician request: Other Requests or Instructions: Special Treatment Procedure Special treatment procedure is Medical Necessity 3D Conformal technique is medically necessary due to: The volume of interest is irregular and in close apposition to normal structures that must be protected. The normal structures to be avoided include: Right Lung The volume of interest is in such a location that its parameters can only be defined by MRI or CT. The volume of interested is located The final boost volume of interest must be constructed to the exact tumor volume with its irregular configuration. Multiple conformed portals are necessary to cover the volumes of interest with close margins and protect immediately adjacent normal structures. The adjacent normal structures include: Volume of interest bordering a previously irradiated area consisting of IMRT is necessary over other forms of therapy due to: The target volume is in close proximity to critical structures that must be protected. Sparing of normal tissues is necessary, which include The volume of interest must be covered with narrow margins to adequately protect immediately adjacent structures. A margin of will be necessary to protect the following structures: An immediately adjacent area has been previously irradiated and abutting portals must be established with high precision. Previous treatment was delivered to consisting of . The target volume is , and critical normal tissues are within or around that area. The normal tissues include: Dose escalation is planned to deliver radiation doses in excess of those commonly utilized for similar tumors with conventional treatment. A dose of will be necessary, which exceeds tolerances to the following surrounding structures Stereotactic delivery is necessary over other forms of therapy due to: Treatment of intracranial tumor(s) in [id number] locations require the stereotactic technique. The tumor location(s) include: The tumor(s) have an unusual shape requiring stereotactic delivery. The tumor is located to in close proximity to other vital structures including: An immediately adjacent area has been previously irradiated and reirradiation requires increased precision and accuracy. Previous treatment was delivered to consisting of . Surgery is not an option due to the of the tumor. The tumor is The patient???s medical condition justifies aggressive treatment to the to achieve total clearance or clinically beneficial reduction in the patient???s overall burden of systemic disease. Other forms of radiotherapy, including but not limited to external beam and IMRT, cannot be safely or effectively utilized due to The tumor burden can be completely targeted with acceptable risk to critical normal structures including Effective chemotherapy regimens have been exhausted or are otherwise not feasible including Other forms of focal therapy, including but not limited to radiofrequency ablation and cryotherapy, cannot be as safely or effectively utilized due to The patient has experienced recurrence after conventional radiation modalities including
== END 2020-10-05 11:00 | disposition home or self-care (01) ==
LOC: ONCMED 05:39
PROVIDERS: Internal Medicine Hematology & Oncology; PCP Internal Medicine; Visit Provider Radiology Radiation Oncology
DX: Z51.11 Encounter for antineoplastic chemotherapy (principal); C50.411 Malignant neoplasm of upper-outer quadrant of right female breast; G89.29 Other chronic pain; M25.511 Pain in right shoulder; Z17.1 Estrogen receptor negative status [ER-]; Z87.891 Personal history of nicotine dependence; Z79.899 Other long term (current) drug therapy
CPT/HCPCS: 36415; 36591; 36593; 80053; 85025; 96367; 96374; 96413; 99214; 99215; J1100; J2469; J2997; J3490; J7050; J9264

== ENCOUNTER 2020-10-05 11:05 | Outpatient (CLI) | payer OTHER, SELFPAY ==
--- NOTE | 2020-10-05 11:17 | XR_ITS ---
WS: [id number] Exam: XR knee RT 1-2V [id number] Date/Time of Exam: 10/05/2020 11:17 AM Reason For Exam: KNEE PAIN Comparison 09/16/2019. A total knee prosthesis is in place in satisfactory position. No fracture or loosening. No joint effu suleiman. No significant change. XR/XR knee RT 1-2V [id number] IMPRESSION: 1. Total joint replacement in excellent position. No fracture or loosening note d.
--- NOTE | 2020-10-05 11:17 | XR_ITS ---
WS: [id number] Exam: XR cervical spine 3V* [id number] Date/Time of Exam: 10/05/2020 11:17 AM Reason For Exam: NECK PAIN No fracture or dislocation. Interbody fusion from C5 to C7 with anterior plate and screw fixation. Th e fusion is ossified and in good alignment. No sign of hardware failure. Facet DJD at all levels. The odontoid is intact. Paraspinal soft tissues appear normal. XR/XR cervical spine 3V* [id number] IMPRESSION: 1. Intact interbody fusion from C5 to C7. 2. No fracture or dislocation. 3. Facet DJD at all levels.
--- NOTE | 2020-10-05 11:17 | XR_ITS ---
WS: [id number] Exam: XR knee LT 1-2V [id number] Date/Time of Exam: 10/05/2020 11:17 AM Reason For Exam: KNEE PAIN Comparison 09/16/2019. No fracture or dislocation. Moderate degenerative narrowing of the medial joint compartment. No joint effusion. Normal soft tissues. XR/XR knee LT 1-2V [id number] IMPRESSION: 1. No fracture or joint effusion. 2. Moderate degenerative narrowing of the medial joint compartment.
--- NOTE | 2020-10-05 11:17 | XR_ITS ---
WS: [id number] No previous. Exam: XR lumbar spine 2-3V* [id number] Date/Time of Exam: 10/05/2020 11:17 AM Reason For Exam: BACK PAIN There is grade 2/4 spondylolisthesis of L5 on S1 secondary to bilateral pars interarticularis defect of L5. Degenerative vacuum disc at L5-S1. No sign of fracture. Facet DJD at all levels. Remaining dis ks are relatively well preserved. Very slight dextroscoliosis. DJD of the SI joints. Large amount ret ained stool in the colon. XR/XR lumbar spine 2-3V* [id number] IMPRESSION: 1. Grade 2/4 spondylolisthesis of L5 on S1 secondary to L5 pars defect. Degener ative vacuum disc at L5-S1. 2. No fracture. 3. Moderately advanced facet DJD at L4-5 and L5-S1.
== END 2020-10-05 11:06 | disposition home or self-care (01) ==
PROVIDERS: PCP Internal Medicine; Visit Provider Emergency Medicine
DX: M25.562 Pain in left knee (principal); M25.561 Pain in right knee; M54.2 Cervicalgia; M54.9 Dorsalgia, unspecified; M43.17 Spondylolisthesis, lumbosacral region; M47.816 Spondylosis without myelopathy or radiculopathy, lumbar region; M47.817 Spondylosis without myelopathy or radiculopathy, lumbosacral region
CPT/HCPCS: 72040; 72100; 73560

== ENCOUNTER 2020-10-16 05:22 | Outpatient (RCR) | payer MEDICAID, SELFPAY ==
--- NOTE | 2020-10-09 | CT_ITS ---
Radiation Therapy Planning CT images; total exam DLP: 1077.32 mGy-cm MTDD
--- NOTE | 2020-10-16 11:59 | ONCRAD TMN_ITS ---
Radiation Oncology Weekly Treatment Management Patient: Gareth Bob MR#: [id number] : 1965 Attending Physician: Rock Will M.D. Date of Service: 10/16/2020 Referring Physician(s): Dr. Young Ramos Lisbeth Servin is a 54 year-old white female diagnosed with a pathological stage IIIB (T3N0) invasive ductal carcinoma of the right upper-outer quadrant of the breast. Immunohistochemical staining were negative for estrogen receptor, progesterone receptor, and for HER2. She has received 2.7 Gy of a prescribed 40 Gy delivered with a 3D conformal radiotherapy plan utilizing a prone set-up with opposed tangential portal rodrigues. Upon review of systems, she denied any breast complaints to radiotherapy. On physical examination, the patient weighed 241 lbs. Her temperature was 96.3 ???F with a blood pressure of 127/91 mmHg. Her pulse was 90 bpm and her respiratory rate was 18. There was no erythema within the treatment rodrigues of the right breast. Continue hypofractionated breast radiotherapy as planned Signed by: Dr. Rock Will 10/16/2020 11:58:03 AM
== END 2020-10-16 23:59 | disposition home or self-care (01) ==
LOC: ONCMED 05:22
PROVIDERS: PCP Internal Medicine; Visit Provider Radiology Radiation Oncology
DX: Z51.0 Encounter for antineoplastic radiation therapy (principal); C50.411 Malignant neoplasm of upper-outer quadrant of right female breast; Z17.1 Estrogen receptor negative status [ER-]
CPT/HCPCS: 77280; 77295; 77300; 77332; 77334; 77387; 77412

== ENCOUNTER 2020-11-15 05:39 | Outpatient (RCR) | payer MEDICAID, SELFPAY ==
--- NOTE | 2020-10-23 10:08 | ONCRAD TMN_ITS ---
Radiation Oncology Weekly Treatment Management Patient: Lisbeth Servin MR#: [id number] : 1965 Attending Physician: Rock Will M.D. Date of Service: 10/23/2020 Referring Physician(s): Dr. Young Ramos Lisbeth Servin is a 54 year-old white female diagnosed with a pathological stage IIIB (T3N0) invasive ductal carcinoma of the right upper-outer quadrant of the breast. Immunohistochemical staining were negative for estrogen receptor, progesterone receptor, and for HER2. She has received 13.3 Gy of a prescribed 40 Gy delivered with a 3D conformal radiotherapy plan utilizing a prone set-up with opposed tangential portal rodrigues. Upon review of systems, she denied any breast complaints to radiotherapy. On physical examination, the patient weighed 240 lbs. Her temperature was 98.3 ???F with a blood pressure of 127/77 mmHg. Her pulse was 85 bpm and her respiratory rate was 18. There was no erythema within the treatment rodrigues of the right breast. Continue hypofractionated breast radiotherapy as prescribed. Signed by: Dr. Rock Will 10/23/2020 10:06:15 AM
--- NOTE | 2020-10-30 10:05 | ONCRAD TMN_ITS ---
Radiation Oncology Weekly Treatment Management Patient: Lisbeth Servin MR#: [id number] : 1965 Attending Physician: Rock Will M.D. Date of Service: 10/30/2020 Referring Physician(s): Dr. Young Ramos Lisbeth Servin is a 54 year-old white female diagnosed with a pathological stage IIIB (T3N0) invasive ductal carcinoma of the right upper-outer quadrant of the breast. Immunohistochemical staining were negative for estrogen receptor, progesterone receptor, and for HER2. She has received 29.3 Gy of a prescribed 40 Gy delivered with a 3D conformal radiotherapy plan utilizing a prone set-up with opposed tangential portal rodrigues. An additional 10 Gy will be administered to the surgical bed subsequent to the initial treatment rodrigues. Upon review of systems, she denied any breast complaints to radiotherapy. On physical examination, the patient weighed 235 lbs. Her temperature was 98.3 ???F with a blood pressure of 142/95 mmHg. Her pulse was 94 bpm and her respiratory rate was 20. There was no erythema within the treatment rodrigues of the right breast. Continue hypofractionated breast radiotherapy as planned. Signed by: Dr. Rock Will 10/30/2020 10:03:24 AM
--- NOTE | 2020-11-06 09:50 | ONCRAD TMN_ITS ---
Radiation Oncology Weekly Treatment Management Patient: Lisbeth Servin MR#: [id number] : 1965 Attending Physician: Rock Will M.D. Date of Service: 11/06/2020 Referring Physician(s): Dr. Young Ramos Lisbeth Servin is a 54 year-old white female diagnosed with a pathological stage IIIB (T3N0) invasive ductal carcinoma of the right upper-outer quadrant of the breast. Immunohistochemical staining were negative for estrogen receptor, progesterone receptor, and for HER2. She has received 40 Gy of a prescribed 40 Gy delivered with a 3D conformal radiotherapy plan utilizing a prone set-up with opposed tangential portal rodrigues. An additional 10 Gy will be administered to the surgical bed subsequent to the initial treatment rodrigues. Upon review of systems, she denied any breast complaints to radiotherapy. On physical examination, the patient weighed 231 lbs. Her temperature was 98.1 ???F with a blood pressure of 133/99 mmHg. Her pulse was 100 bpm and her respiratory rate was 20. There was no erythema within the treatment rodrigues of the right breast. Continue hypofractionated breast radiotherapy as prescribed. Signed by: Dr. Rock Will 11/06/2020 9:49:46 AM
--- NOTE | 2020-11-13 09:53 | ONCRAD TMN_ITS ---
Radiation Oncology Weekly Treatment Management Patient: Lisbeth Servin MR#: [id number] : 1965 Attending Physician: Rock Will M.D. Date of Service: 11/13/2020 Referring Physician: Dr. Young Ramos Lisbeth Servin is a 54 year-old white female diagnosed with a pathological stage IIIB (T3N0) invasive ductal carcinoma of the right upper-outer quadrant of the breast. Immunohistochemical staining were negative for estrogen receptor, progesterone receptor, and for HER2. She has received 46 Gy of a prescribed 50 Gy delivered with a 3D conformal radiotherapy plan utilizing a prone set-up with opposed tangential portal rodrigues. Upon review of systems, she reported a rash that itched in her right breast. On physical examination, the patient weighed 238 lbs. Her temperature was 99.7 ???F with a blood pressure of 133/97 mmHg. Her pulse was 99 bpm and her respiratory rate was 16. There was a popular rash in the medial aspect of the right breast. Continue hypofractionated breast radiotherapy as prescribed. I will recommend diphenhydramine lotion for the rash. Signed by: Dr. Rock Will 11/13/2020 9:50:58 AM
== END 2020-11-16 23:59 | disposition home or self-care (01) ==
LOC: ONCMED 05:39
PROVIDERS: PCP Internal Medicine; Visit Provider Radiology Radiation Oncology
DX: Z51.0 Encounter for antineoplastic radiation therapy; C50.411 Malignant neoplasm of upper-outer quadrant of right female breast; Z17.1 Estrogen receptor negative status [ER-]; R21 Rash and other nonspecific skin eruption; Z87.891 Personal history of nicotine dependence; Z79.891 Long term (current) use of opiate analgesic
CPT/HCPCS: 77307; 77334; 77336; 77387; 77412; 99205; 99999

== ENCOUNTER 2020-12-12 05:37 | Outpatient (RCR) | payer MEDICAID, SELFPAY ==
--- NOTE | 2020-12-01 09:36 | ONCRAD EPV_ITS ---
Radiation Oncology Follow-Up Note Patient Name: Lisbeth Fermin Date of : 1965 Date of Service: 12/01/2020 Attending Physician: Rock Will M.D. Lisbeth Fermin returned to my office this morning for a routinely scheduled follow-up appointment. She completed adjuvant radiotherapy in October for the post-operative management of her pathological stage IIIB (T3N0), grade 3 invasive ductal carcinoma upper-outer quadrant of the right breast. Immunohistochemical stains were negative for estrogen receptor, progesterone receptor, and HER-2. She received dose dense Adriamycin and cyclophosphamide for 4 cycles and weekly Abraxane prior to radiotherapy. Radiotherapy was administered between the dates of October 16, 2020 through November 15, 2020. A prescribed dose of 50 Gy was delivered in 20 fractions over 31 elapsed days. Hypofractionated breast radiotherapy was initially delivered accompanied by a surgical bed boost. On review of systems, she did not report any breast complaints. On physical examination, The temperature is 98.5???F. Her blood pressure was 118/87 mmHg. The pulse was 96 bpm. Examination of the right breast did not reveal any significant erythema nor hyperpigmentation. In summary, the Lisbeth Fermin returned for a routine post radiotherapy follow-up. The patient will continue follow-up with her medical oncologist. Signed by: Dr. Rock Will 12/01/2020 9:34:31 AM
[2020-12-11 09:38] LABS: Basophils % 0.9 %; Eosinophils # 0.1 10^3/uL (0.0-0.8); Eosinophils % 1.1 %; Hematocrit 43.8 % (37.0-47.0); Hemoglobin 13.9 g/dL (11.5-15.3); Lymphocytes # 1.1 10^3/uL (0.8-4.8); Lymphocytes % 24.1 %; Mean Corpuscular HGB Conc 31.7 g/dL (30.0-36.0); Mean Corpuscular Hemoglobin 27.9 pg (28.0-34.0); Mean Platelet Volume 9.5 fL (7.4-10.4); Monocytes # 0.4 10^3/uL (0.2-0.9); Neutrophils % 63.7 %; Nucleated Red Blood Cells % 0 %; Platelet Count 259 10^3/cmm (130-400); Red Blood Count 4.98 10^6/uL (4.1-5.3); Red Cell Distribution Width 14.3 % (12.1-15.1); White Blood Count 4.4 10^3/uL (4.0-10.0)
[2020-12-11 10:02] LABS: Alanine Aminotransferase 10 U/L (0-33); Albumin Level 4.3 g/dL (3.5-5.2); Alkaline Phosphatase 100 IU/L (35-105); Aspartate Amino Transferase 12 U/L (0-32); Blood Urea Nitrogen 14 mg/dL (6-20); Calcium 9.5 mg/dL (8.5-10.5); Carbon Dioxide 26 mmol/L (22-29); Chloride 102 mmol/L (98-107); Globulin 4.9 g/dL (1.3-4.6); Glomerular Filtration Rate 87.2 mL/min (90-130); Glucose 105 mg/dL (65-115); Osmolality Calculated 285 mOsm/kg (285-295); Sodium 137 mmol/L (136-145); Total Bilirubin 0.3 mg/dL (0.15-1.2); Total Protein 9.2 g/dL (6.6-8.7)
--- NOTE | 2020-12-12 16:01 | ONC FU_ITS ---
Dr. Landeros follow up note Patient: Lisbeth Fermin Unit #: [id number]: 1965 Dicatated By: Andrei Landeros M.D.Date of Visit:Dec 12, 2020 Onc Med Follow-up/Prog Note History of Present Illness: Mrs. Fermin is a 54-year-old female with a history of right breast mass. In November 2019 she noted a mass in her right breast. As it did not go away, she underwent mammogram which showed a mass in her right breast. She underwent ultrasound of right breast which showed a mass at 10-12:00, large irregular hypoechoic solid lesion taller than wide, measuring 3.8 x 2.1 x 4.9 cm. The mass was highly suspicious for malignancy. She also had an adjacent smaller solid satellite nodules measuring 1.9 x 1.4 x 1.2 cm and 0.9 x 0.5 x 0.6 cm mass. She then underwent ultrasound-guided core needle biopsies on 01/21/2020. The pathology reported invasive ductal carcinoma of breast. Positive in 5 out of 5 core biopsies. ER/CO negative e.g. (less than 1% although in the report CO was mentioned positive but it was less than 1% and went confirmed with pathology, Dr. Mckinnon said it should be negative). HER-2/cristobal negative as well. Mrs Fermin underwent right breast wide excisional lumpectomy on 02/10/2020. The final pathology report confirmed invasive tumor 5.5 x 4.5 x 3.5 cm. focally extends to the inked posterior margin; remaining margins free of invasive carcinoma. Extensive ductal carcinoma in situ with focal apocrine features, high nuclear grade, carcinoma in situ extends to within 1 mm of inked inferior margin, and remaining margins were free., Complex sclerosing lesion, extensive sclerosing adenosis, fibrocystic changes, cystic and papillary apocrine metaplasia. One sentinel lymph node was removed and examined showed no evidence of metastatic disease. She underwent reexcision of positive surgical margin on 02/24/2020 and obtain clear surgical margins. Mrs Fermin denies any history of bony pains except chronic right shoulder rotator cuff and history of right knee replacement. History of smoking, occasional alcohol use. Menarche at age 15, first at age 26, no history of hormone use. Last menstrual period was in December 2018. Mrs Fermin was offered treatment of her triple negative, sentinel node negative breast cancer with Adriamycin Cytoxan dose dense for 4 cycles followed by Taxotere for 12 weeks. She began her first cycle of chemotherapy on April 04, 2020. We have planned to exchange weekly Taxotere with weekly Abraxane due to significant side effects with steroids. She had significant hyperglycemia, insomnia, worsening anxiety, and mood swings. That was with 1 dose that was inadvertently taken in preparation for her first chemotherapy with Adriamycin and Cytoxan. She has completed 4 cycles of dose dense Adriamycin Cytoxan.. She was intolerant to oral steroids (she inadvertently took dexamethasone with her first cycle of AC) in that she had significant hyperglycemia, severe mood swings, insomnia and severe anxiety on the day of and day after she took them. That is why instead of weekly Taxol, she was offered weekly Abraxane, 3 weeks on 1 week off x 4 cycles, Which started on May 30, 2020. She completed 2 weekly doses from 05/30 to 06/06/2020. She was delayed on 06/13/2020 due to performance status and her mother in law's /. She resumed treatment on 06/20/2020 tolerated adjuvant chemotherapy with Abraxane well And completed on September 28, 2020 Followed by postlumpectomy radiation therapy to her right breast from October 16, 2020 through November 15, 2020 Patient with history of chronic right shoulder pain, x-ray of right shoulder was done on September 12, 2020 which shows no acute right shoulder finding. Came for follow-up, denies any specific complaints, no fever chills, no nausea or vomiting, no diarrhea or constipation, tolerated postlumpectomy radiation therapy right breast well except radiation-induced dermatitis just after completion of radiation therapy, which has resolved now. C Medications: ALPRAZolam 1 (1 mg) Tablet Oral t.i.d. PRN, Claritin 1 Tablet (of 10 mg) Oral at bedtime, Cymbalta 1 (30 mg) Capsule Delayed Release Particles Oral daily, Lidocaine-Prilocaine 1 (2.5-2.5 %) Cream Topical daily PRN, LORazepam 0.5 - 1 Tablet (of 1 mg) Oral t.i.d. PRN, Methocarbamol 1 - 2 Tablet (of 750 mg) Oral t.i.d. PRN, Prochlorperazine Maleate 1 Tablet (of 10 mg) Oral q 4 hours PRN, Xarelto 1 Tablet (of 15 mg) Oral b.i.d. Allergies: Latex and Penicillins. Review of Systems: Constitutional - Appetite is good and weight is stable. No fever, night sweats, or hot flashes. Energy level is fair, ENMT - No sinus congestion/drainage. No mouth sores. No sore throat or difficulty swallowing, Hematologic/Lymphatic - No abnormal bruising or bleeding, Respiratory - No shortness of breath. No cough. No pleuritic pain or hemoptysis, Cardiovascular - No angina pain. No palpitations, Gastrointestinal - Occasional nausea and vomiting. Positive for heartburn, no acid reflux. No diarrhea or constipation. No blood in the stool or black stools, Genitourinary (F) - No dysuria or hematuria. No urinary frequency. No urgency or incontinence, Musculoskeletal - Positive for joint pain, specifically Right shoulder, Neurologic - No headache or dizziness. No numbness or tingling. No other focal neurologic symptoms, Psychiatric - Positive for anxiety, no depression. Positive for occasional bouts of insomnia. Vital Signs: Performed on Dec 12, 2020 09:44 Height - 72.00 in Weight - 237.2 lbs (LOW) BSA - 2.29 sq.m BMI - 32.17 (HIGH) Temperature - 96.1 F (LOW) Pulse - 82 /min Respiration - 16 /min BP - 140/81 mm(hg) O2 Sat - 99 % Pain - 6 Performance Status: 0 - Fully active, able to carry on all predisease activities without restrictions. (ECOG) Physical Examination: Respiratory - Lungs are clear to auscultation, Cardiovascular - Regular rate and rhythm of heart, Gastrointestinal - Soft, bowel sounds present, Extremities - No visible edema. Lab/Imaging: Test performed on Sep 27, 2020 14:45 Sodium 135 mmol/L Potassium 3.8 mmol/L Chloride 101 mmol/L CO2 26 mmol/L Anion Gap 11.8 BUN 13 mg/dL Creatinine 0.6 mg/dL Cr Clearance (Est) 197.5400 mL/min eGFR 104.6 mL/min Glucose 154 mg/dL Osmolality - Calculated 283 mOsm/kg Calcium 9.4 mg/dL Protein, Total 6.6 g/dL Albumin 4.4 g/dL Globulin 2.2 g/dL Bilirubin, Total 0.3 mg/dL ALT (SGPT) 14 U/L AST (SGOT) 13 U/L Alkaline Phosphatase 87 IU/L WBC 6.4 10 3/uL RBC 4.84 10 6/uL HGB 12.6 g/dL HCT 40.4 % MCV 83.5 fL MCH 26.0 pg MCHC 31.2 g/dL RDW 15.3 % Platelet Count 259 10 3/cmm MPV 10.2 fL Neutrophils 5.21 10 3/uL Lymphocytes 1.0 10 3/uL Monocytes 0.1 10 3/uL Eosinophils 0.0 10 3/uL Basophils 0.1 10 3/uL Neutrophil % 81.4 % Lymphocyte % 14.8 % Monocyte % 2.2 % Eosinophil % 0.5 % Basophils % 0.8 % NRBC % 0 % Test performed on Jun 26, 2020 12:10 Manual Diff ONC REORDERED/KINME Impression: Invasive ductal carcinoma status post right breast wide excisional lumpectomy done on 02/09/2019 final pathology report showed invasive ductal carcinoma 5.5 x 4.5 x 3.5 cm, focally extends to the inked posterior margin, extensive ductal carcinoma in situ with focal apocrine features, high nuclear grade. Followed by reexcision of often involved margin on 02/24/2020 with clear margins pT3 and 1 sentinel lymph node was examined showed no evidence of metastatic disease pNo stage IIIB, ER/CO/HER-2/cristobal negative with high Ki-67 e.g. 38%. chronic right shoulder pain due to rotator cuff discussed with Mrs Fermin her disease status. She has locally advanced disease e.g. T3 lesion, status post wide excision of right breast lumpectomy/partial mastectomy with clear surgical margins and 1 sentinel lymph node was examined showed no evidence of metastatic disease, clinical stage IIB. Breast cancer prognostic profiling showed triple negative disease e.g. ER/CO/HER-2/cristobal negative. Being triple negative and locally advanced disease, Mrs Zander fernandez a candidate for adjuvant chemotherapy. As per NCCN guidelines, dense Adriamycin Cytoxan e.g. every 2 weeks ???4 with Neulasta support to prevent chemotherapy-induced neutropenia-Followed by weekly Taxol ???12, followed by postlumpectomy radiation therapy was the initial treatment plan. As discussed previously she had significant hyperglycemia, anxiety, insomnia and palpitations with an inadvertently taken steroid premed prior to her chemotherapy on cycle 1 day 1. It was felt that she wouold not tolerate the steroids required for the Taxol and we did pursue obtaining Abraxane for her. She has now completed 4 cycles of Adriamycin Cytoxan. She has experienced expected side effects but overall has tolerated it well. She began her taxane portion of her treatment plan on 05/30/2020. She is only been able to complete 2 consecutive weeks her cycle. She most likely change her cycles to 2 out of every 3 weeks for total of 12 treatments per She has had trouble with performance status even with 2 consecutive weeks. The week off has dramatically improved performance status and Completed adjuvant therapy on October 06, 2020, followed by postlumpectomy radiation therapy to right breast from October 16, 2020 till November 15, 2020 Plan: Discussed with patient regarding her labs white blood count 4.4 hemoglobin 13.9 hematocrit 43.8 platelets 259,000 CMP within normal limits Clinically, patient doing well with no new signs symptoms history of recurrence of disease her follow-up lab work-up within normal range, patient return to clinic in 3 months with CBC CMP and BRCA1 BRCA2 testing and her follow-up yearly mammogram Signed By: Andrei Landeros M.D. <<Signature on File>>
== END 2020-12-17 23:59 | disposition home or self-care (01) ==
LOC: ONCMED 05:37
PROVIDERS: PCP Internal Medicine; Visit Provider Internal Medicine Hematology & Oncology
DX: C50.411 Malignant neoplasm of upper-outer quadrant of right female breast (principal); Z17.1 Estrogen receptor negative status [ER-]; F32.9 Major depressive disorder, single episode, unspecified; F41.9 Anxiety disorder, unspecified; G89.29 Other chronic pain; M25.511 Pain in right shoulder; Z79.52 Long term (current) use of systemic steroids; Z79.891 Long term (current) use of opiate analgesic
CPT/HCPCS: 36591; 80053; 85025; G0463

== ENCOUNTER → 2020-12-14 08:53 | Outpatient (BNVA) | payer MEDICAID, SELFPAY | PROVIDERS: PCP Internal Medicine; Visit Provider Anesthesiology | DX: G89.29 Other chronic pain (principal); M54.9 Dorsalgia, unspecified; M54.2 Cervicalgia; M25.511 Pain in right shoulder; M25.561 Pain in right knee; M25.562 Pain in left knee; Z96.651 Presence of right artificial knee joint; Z79.891 Long term (current) use of opiate analgesic | CPT/HCPCS: 99214 ==

== ENCOUNTER 2021-01-12 05:45 | Outpatient (RCR) | payer MEDICAID, SELFPAY | END 2021-01-14 23:59 | disposition home or self-care (01) | LOC: ONCMED 05:45 | PROVIDERS: PCP Internal Medicine; Visit Provider Internal Medicine Hematology & Oncology | DX: Z45.2 Encounter for adjustment and management of vascular access device (principal); R52 Pain, unspecified; Z87.891 Personal history of nicotine dependence; Z79.891 Long term (current) use of opiate analgesic | CPT/HCPCS: 36415; 96523 ==

== ENCOUNTER 2021-01-25 09:16 | Outpatient (CLI) | payer MEDICAID, SELFPAY ==
--- NOTE | 2021-01-25 09:20 | MM_ITS ---
WS: [id number] DIAGNOSTIC BILATERAL DIGITAL MAMMOGRAM WITH CAD HISTORY: HX OF BREAST CA COMPARISON: 01/07/2020 and 12/20/2019 TECHNIQUE: Bilateral craniocaudad, mediolateral oblique, and mediolateral views are submitted. Comput er aided detection utilized. Breast composition: The breasts are extremely dense, which lowers the sensitivity of mammography. Pos tsurgical and postradiation changes are noted in the RIGHT breast. Volume loss with architectural dis tortion. No increasing calcifications or mass identified in the RIGHT breast. There are numerous calcifications throughout the LEFT breast. Calcifications in the central LEFT [address] on the CC projection extend along a ductal distribution. These calcifications are central to the n ipple and progressed since the prior study. MM/[id number] IMPRESSION: BI-RADS: 0-Incomplete: Need additional imaging evaluation FOLLOW UP: Need Additional Imaging LEFT BREAST: Magnification views of suspicious calcification CC and MLO. True M Sal.
== END 2021-01-25 09:17 | disposition home or self-care (01) ==
LOC: RADSHAW 09:17
PROVIDERS: PCP Family Medicine; Visit Provider Internal Medicine Hematology & Oncology
DX: Z85.3 Personal history of malignant neoplasm of breast (principal); R92.8 Other abnormal and inconclusive findings on diagnostic imaging of breast
CPT/HCPCS: 77066

== ENCOUNTER 2021-01-30 10:32 | Outpatient (CLI) | payer MEDICAID, SELFPAY ==
--- NOTE | 2021-01-30 10:51 | MM_ITS ---
WS: [id number] LEFT DIGITAL MAMMOGRAPHY WITH CAD CLINICAL INFORMATION: SUSPICIOUS CALCIFICATIONS COMPARISON: January 25, 2021 and December 20, 2019 TECHNIQUE: 3 views of the left breast were obtained. FINDINGS: The left breast is composed of heterogeneous fibroglandular density tissue, which can limit the detec tion of small underlying mass lesions. Again seen are numerous calcifications throughout the left breast. Amorphous clustered calcifications in the central left breast. Some of these appear to represent benign milk of calcium with layering o n the MLO view. Additional scattered and clustered Punctate calcifications have increased in conspicuity since 2019. These are nonspecific but probably benign and recommend 6 month follow-up MM/[id number] IMPRESSION: BI-RADS: 3-Probably Benign FOLLOW UP: 6 Month Follow-up Recommend 6 month follow-up spot magnification views diagnostic mammography
== END 2021-01-30 10:33 | disposition home or self-care (01) ==
LOC: RADSHAW 10:34
PROVIDERS: PCP Family Medicine; Visit Provider Internal Medicine Hematology & Oncology
DX: R92.1 Mammographic calcification found on diagnostic imaging of breast (principal)
CPT/HCPCS: 77065

== ENCOUNTER 2021-02-09 06:11 | Outpatient (RCR) | payer MEDICAID, SELFPAY | END 2021-02-14 23:59 | disposition home or self-care (01) | LOC: ONCMED 06:11 | PROVIDERS: PCP Family Medicine; Visit Provider Internal Medicine Hematology & Oncology | DX: Z45.2 Encounter for adjustment and management of vascular access device (principal) | CPT/HCPCS: 96523 ==

== ENCOUNTER → 2021-02-13 08:45 | Outpatient (BNVA) | payer MEDICAID, SELFPAY | PROVIDERS: PCP Family Medicine; Visit Provider Anesthesiology | DX: G89.29 Other chronic pain (principal); M54.9 Dorsalgia, unspecified; M25.511 Pain in right shoulder; M54.2 Cervicalgia; M25.562 Pain in left knee; Z96.651 Presence of right artificial knee joint; Z79.891 Long term (current) use of opiate analgesic | CPT/HCPCS: 99214 ==

== ENCOUNTER 2021-03-13 05:52 | Outpatient (RCR) | payer MEDICAID, SELFPAY ==
[2021-03-13 11:47] LABS: Basophils % 0.5 %; Eosinophils # 0.1 10^3/uL (0.0-0.8); Eosinophils % 1.9 %; Hematocrit 41.2 % (37.0-47.0); Hemoglobin 13.1 g/dL (11.5-15.3); Lymphocytes # 1.2 10^3/uL (0.8-4.8); Lymphocytes % 28.8 %; Mean Corpuscular HGB Conc 31.8 g/dL (30.0-36.0); Mean Corpuscular Hemoglobin 28.9 pg (28.0-34.0); Mean Corpuscular Volume 90.7 fL (81-99); Mean Platelet Volume 9.3 fL (7.4-10.4); Monocytes # 0.3 10^3/uL (0.2-0.9); Neutrophils # 2.59 10^3/uL (1.8-7.7); Neutrophils % 60.6 %; Nucleated Red Blood Cells % 0 %; Platelet Count 242 10^3/cmm (130-400); Red Blood Count 4.54 10^6/uL (4.1-5.3); Red Cell Distribution Width 12.9 % (12.1-15.1); White Blood Count 4.3 10^3/uL (4.0-10.0)
[2021-03-13 12:28] LABS: Alanine Aminotransferase 13 U/L (0-33); Alkaline Phosphatase 97 IU/L (35-105); Anion Gap 11.1 (5-19); Aspartate Amino Transferase 14 U/L (0-32); Blood Urea Nitrogen 18 mg/dL (6-20); Calcium 8.3 mg/dL (8.5-10.5); Carbon Dioxide 27 mmol/L (22-29); Chloride 103 mmol/L (98-107); Globulin 2.2 g/dL (1.3-4.6); Glomerular Filtration Rate 104.2 mL/min (90-130); Glucose 120 mg/dL (65-115); Osmolality Calculated 287 mOsm/kg (285-295); Potassium 4.1 mmol/L (3.5-5.1); Sodium 137 mmol/L (136-145); Total Bilirubin 0.3 mg/dL (0.15-1.2); Total Protein 6.2 g/dL (6.6-8.7)
--- NOTE | 2021-03-13 16:52 | ONC FU_ITS ---
Dr. Landeros follow up note Patient: Lisbeth Fermin Unit #: [id number]: 1965 Dicatated By: Andrei Landeros M.D.Date of Visit:Mar 13, 2021 Onc Med Follow-up/Prog Note History of Present Illness: Mrs. Fermin is a 55-year-old female with a history of right breast mass. In November 2019 she noted a mass in her right breast. As it did not go away, she underwent mammogram which showed a mass in her right breast. She underwent ultrasound of right breast which showed a mass at 10-12:00, large irregular hypoechoic solid lesion taller than wide, measuring 3.8 x 2.1 x 4.9 cm. The mass was highly suspicious for malignancy. She also had an adjacent smaller solid satellite nodules measuring 1.9 x 1.4 x 1.2 cm and 0.9 x 0.5 x 0.6 cm mass. She then underwent ultrasound-guided core needle biopsies on 01/21/2020. The pathology reported invasive ductal carcinoma of breast. Positive in 5 out of 5 core biopsies. ER/FL negative e.g. (less than 1% although in the report FL was mentioned positive but it was less than 1% and went confirmed with pathology, Dr. Mckinnon said it should be negative). HER-2/cristobal negative as well. Mrs Fermin underwent right breast wide excisional lumpectomy on 02/10/2020. The final pathology report confirmed invasive tumor 5.5 x 4.5 x 3.5 cm. focally extends to the inked posterior margin; remaining margins free of invasive carcinoma. Extensive ductal carcinoma in situ with focal apocrine features, high nuclear grade, carcinoma in situ extends to within 1 mm of inked inferior margin, and remaining margins were free., Complex sclerosing lesion, extensive sclerosing adenosis, fibrocystic changes, cystic and papillary apocrine metaplasia. One sentinel lymph node was removed and examined showed no evidence of metastatic disease. She underwent reexcision of positive surgical margin on 02/24/2020 and obtain clear surgical margins. Mrs Fermin denies any history of bony pains except chronic right shoulder rotator cuff and history of right knee replacement. History of smoking, occasional alcohol use. Menarche at age 15, first at age 26, no history of hormone use. Last menstrual period was in December 2018. Mrs Fermin was offered treatment of her triple negative, sentinel node negative breast cancer with Adriamycin Cytoxan dose dense for 4 cycles followed by Taxotere for 12 weeks. She began her first cycle of chemotherapy on April 04, 2020. We have planned to exchange weekly Taxotere with weekly Abraxane due to significant side effects with steroids. She had significant hyperglycemia, insomnia, worsening anxiety, and mood swings. That was with 1 dose that was inadvertently taken in preparation for her first chemotherapy with Adriamycin and Cytoxan. She has completed 4 cycles of dose dense Adriamycin Cytoxan.. She was intolerant to oral steroids (she inadvertently took dexamethasone with her first cycle of AC) in that she had significant hyperglycemia, severe mood swings, insomnia and severe anxiety on the day of and day after she took them. That is why instead of weekly Taxol, she was offered weekly Abraxane, 3 weeks on 1 week off x 4 cycles, Which started on May 30, 2020. She completed 2 weekly doses from 05/30 to 06/06/2020. She was delayed on 06/13/2020 due to performance status and her mother in law's /. She resumed treatment on 06/20/2020 tolerated adjuvant chemotherapy with Abraxane well And completed on September 28, 2020 Followed by postlumpectomy radiation therapy to her right breast from October 16, 2020 through November 15, 2020 Patient with history of chronic right shoulder pain, x-ray of right shoulder was done on September 12, 2020 which shows no acute right shoulder finding. Follow-up mammogram done on January 25, 2021 showed heterogeneous fibroglandular density tissue in the left breast along with numerous calcification throughout the left breast. Amorphous clustered calcifications in the central left breast and additional scattered and clustered punctate calcifications have increased in conspicuity since December 20, 2019, follow-up mammogram with spot magnification view recommended in 6-month Came for follow-up, denies any specific complaints, no fever chills, no nausea or vomiting, no diarrhea or constipation, no new bony pains except chronic shoulder pain/discomfort Medications: ALPRAZolam 1 (1 mg) Tablet Oral t.i.d. PRN, Claritin 1 Tablet (of 10 mg) Oral at bedtime, Cymbalta 1 (30 mg) Capsule Delayed Release Particles Oral daily, Lidocaine-Prilocaine 1 (2.5-2.5 %) Cream Topical daily PRN, LORazepam 0.5 - 1 Tablet (of 1 mg) Oral t.i.d. PRN, Methocarbamol 1 - 2 Tablet (of 750 mg) Oral t.i.d. PRN, Prochlorperazine Maleate 1 Tablet (of 10 mg) Oral q 4 hours PRN, Xarelto 1 Tablet (of 15 mg) Oral b.i.d. Allergies: Latex and Penicillins. Review of Systems: Review of Systems is not available for this patient. Vital Signs: Performed on Mar 13, 2021 12:55 Height - 72.00 in Weight - 251.6 lbs (HIGH) BSA - 2.35 sq.m BMI - 34.12 (HIGH) Temperature - 98.4 F Pulse - 85 /min Respiration - 18 /min BP - 145/91 mm(hg) (HIGH) O2 Sat - 99 % Pain - 6 Fatigue - 7 Performance Status: 0 - Fully active, able to carry on all predisease activities without restrictions. (ECOG) Physical Examination: Respiratory - Lungs are clear to auscultation, Cardiovascular - Regular rate and rhythm of heart, Gastrointestinal - Soft, bowel sounds present, Extremities - No visible edema or rash. Lab/Imaging: Test performed on Dec 19, 2020 00:00 Manual Diff Cancelled via OM: Cancelled in Connected System Test performed on Dec 11, 2020 09:10 Cr Clearance (Est) 167.3700 mL/min Neutrophils 2.80 10 3/uL Eosinophils 0.1 10 3/uL Basophils 0.0 10 3/uL Neutrophil % 63.7 % Eosinophil % 1.1 % Basophils % 0.9 % NRBC % 0 % Impression: Invasive ductal carcinoma status post right breast wide excisional lumpectomy done on 02/09/2019 final pathology report showed invasive ductal carcinoma 5.5 x 4.5 x 3.5 cm, focally extends to the inked posterior margin, extensive ductal carcinoma in situ with focal apocrine features, high nuclear grade. Followed by reexcision of often involved margin on 02/24/2020 with clear margins pT3 and 1 sentinel lymph node was examined showed no evidence of metastatic disease pNo stage IIB, ER/FL/HER-2/cristobal negative with high Ki-67 e.g. 38%. chronic right shoulder pain due to rotator cuff discussed with Mrs Fermin her disease status. She has locally advanced disease e.g. T3 lesion, status post wide excision of right breast lumpectomy/partial mastectomy with clear surgical margins and 1 sentinel lymph node was examined showed no evidence of metastatic disease, clinical stage IIB. Breast cancer prognostic profiling showed triple negative disease e.g. ER/FL/HER-2/cristobal negative. Being triple negative and locally advanced disease, Mrs Zander echeverriais a candidate for adjuvant chemotherapy. As per NCCN guidelines, dense Adriamycin Cytoxan e.g. every 2 weeks ???4 with Neulasta support to prevent chemotherapy-induced neutropenia-Followed by weekly Taxol ???12, followed by postlumpectomy radiation therapy was the initial treatment plan. As discussed previously she had significant hyperglycemia, anxiety, insomnia and palpitations with an inadvertently taken steroid premed prior to her chemotherapy on cycle 1 day 1. It was felt that she wouold not tolerate the steroids required for the Taxol and we did pursue obtaining Abraxane for her. She has now completed 4 cycles of Adriamycin Cytoxan. She has experienced expected side effects but overall has tolerated it well. She began her taxane portion of her treatment plan on 05/30/2020. She is only been able to complete 2 consecutive weeks her cycle. She most likely change her cycles to 2 out of every 3 weeks for total of 12 treatments per She has had trouble with performance status even with 2 consecutive weeks. The week off has dramatically improved performance status and Completed adjuvant therapy on October 06, 2020, followed by postlumpectomy radiation therapy to right breast from October 16, 2020 till November 15, 2020 Plan: Cussed with patient regarding her labs white blood count 4.3 hemoglobin 13.1 hematocrit 41.2 platelets 242,000 CMP within normal limits Clinically, patient doing well with no new signs symptom suggestive of recurrence of disease, follow-up mammogram shows clustered punctate calcification in the central left breast, follow-up mammogram with spot magnification recommended in 6 months, will order that she will return to clinic in 5 months with CBC CMP and follow-up mammogram Signed By: Andrei Landeros M.D. <<Signature on File>>
== END 2021-03-16 23:59 | disposition home or self-care (01) ==
LOC: ONCMED 05:52
PROVIDERS: PCP Family Medicine; Visit Provider Internal Medicine Hematology & Oncology
DX: C50.411 Malignant neoplasm of upper-outer quadrant of right female breast (principal); Z17.1 Estrogen receptor negative status [ER-]; F32.9 Major depressive disorder, single episode, unspecified; F41.9 Anxiety disorder, unspecified; G89.29 Other chronic pain; M25.511 Pain in right shoulder; Z92.21 Personal history of antineoplastic chemotherapy; Z92.3 Personal history of irradiation; Z79.899 Other long term (current) drug therapy
CPT/HCPCS: 36591; 80053; 85025; 99214

== ENCOUNTER → 2021-04-17 08:32 | Outpatient (BNVA) | payer MEDICAID, SELFPAY | PROVIDERS: PCP Family Medicine; Visit Provider Anesthesiology | DX: G89.29 Other chronic pain (principal); M54.9 Dorsalgia, unspecified; M54.2 Cervicalgia; M25.511 Pain in right shoulder; M25.512 Pain in left shoulder; Z79.891 Long term (current) use of opiate analgesic | CPT/HCPCS: 99214 ==

== ENCOUNTER → 2021-05-09 09:07 | Outpatient (BNVA) | payer MEDICAID, SELFPAY | PROVIDERS: PCP Family Medicine; Visit Provider Anesthesiology | DX: G89.29 Other chronic pain (principal); M54.9 Dorsalgia, unspecified; M54.2 Cervicalgia; M25.511 Pain in right shoulder; Z79.891 Long term (current) use of opiate analgesic | CPT/HCPCS: 99214 ==

== ENCOUNTER 2021-05-11 10:12 | Outpatient (CLI) | payer MEDICAID, SELFPAY | END 2021-05-11 10:13 | disposition home or self-care (01) | LOC: ONCMED 10:14 | PROVIDERS: PCP Family Medicine; Visit Provider Internal Medicine Hematology & Oncology | DX: Z45.2 Encounter for adjustment and management of vascular access device (principal) | CPT/HCPCS: 96523 ==

== ENCOUNTER 2021-06-12 10:01 | Outpatient (CLI) | payer MEDICAID, SELFPAY ==
[2021-06-12 10:56] LABS: Basophils % 0.7 %; Eosinophils # 0.2 10^3/uL (0.0-0.8); Eosinophils % 3.5 %; Hemoglobin 13.7 g/dL (11.5-15.3); Lymphocytes # 1.4 10^3/uL (0.8-4.8); Lymphocytes % 23.5 %; Mean Corpuscular HGB Conc 31.9 g/dL (30.0-36.0); Mean Corpuscular Hemoglobin 28.9 pg (28.0-34.0); Mean Corpuscular Volume 90.7 fL (81-99); Mean Platelet Volume 9.4 fL (7.4-10.4); Monocytes # 0.5 10^3/uL (0.2-0.9); Monocytes % 8.5 %; Neutrophils # 3.66 10^3/uL (1.8-7.7); Neutrophils % 63.6 %; Nucleated Red Blood Cells % 0 %; Platelet Count 260 10^3/cmm (130-400); Red Blood Count 4.74 10^6/uL (4.1-5.3); White Blood Count 5.8 10^3/uL (4.0-10.0)
[2021-06-12 11:30] LABS: Alanine Aminotransferase 15 U/L (0-33); Albumin Level 4.1 g/dL (3.5-5.2); Alkaline Phosphatase 97 IU/L (35-105); Anion Gap 13.3 (5-19); Aspartate Amino Transferase 17 U/L (0-32); Blood Urea Nitrogen 17 mg/dL (6-20); Calcium 8.7 mg/dL (8.5-10.5); Carbon Dioxide 27 mmol/L (22-29); Chloride 102 mmol/L (98-107); Globulin 2.7 g/dL (1.3-4.6); Glomerular Filtration Rate 104.2 mL/min (90-130); Glucose 101 mg/dL (65-115); Osmolality Calculated 288 mOsm/kg (285-295); Potassium 4.3 mmol/L (3.5-5.1); Sodium 138 mmol/L (136-145); Total Bilirubin 0.2 mg/dL (0.15-1.2); Total Protein 6.8 g/dL (6.6-8.7)
--- NOTE | 2021-06-15 10:20 | ONC FU_ITS ---
Dr. Landeros follow up note Patient: Lisbeth Fermin Unit #: [id number]: 1965 Dicatated By: Andrei Landeros M.D.Date of Visit:Jun 12, 2021 Onc Med Follow-up/Prog Note History of Present Illness: Mrs. Fermin is a 55-year-old female with a history of right breast mass. In November 2019 she noted a mass in her right breast. As it did not go away, she underwent mammogram which showed a mass in her right breast. She underwent ultrasound of right breast which showed a mass at 10-12:00, large irregular hypoechoic solid lesion taller than wide, measuring 3.8 x 2.1 x 4.9 cm. The mass was highly suspicious for malignancy. She also had an adjacent smaller solid satellite nodules measuring 1.9 x 1.4 x 1.2 cm and 0.9 x 0.5 x 0.6 cm mass. She then underwent ultrasound-guided core needle biopsies on 01/21/2020. The pathology reported invasive ductal carcinoma of breast. Positive in 5 out of 5 core biopsies. ER/AL negative e.g. (less than 1% although in the report AL was mentioned positive but it was less than 1% and went confirmed with pathology, Dr. Mckinnon said it should be negative). HER-2/cristobal negative as well. Mrs Fermin underwent right breast wide excisional lumpectomy on 02/10/2020. The final pathology report confirmed invasive tumor 5.5 x 4.5 x 3.5 cm. focally extends to the inked posterior margin; remaining margins free of invasive carcinoma. Extensive ductal carcinoma in situ with focal apocrine features, high nuclear grade, carcinoma in situ extends to within 1 mm of inked inferior margin, and remaining margins were free., Complex sclerosing lesion, extensive sclerosing adenosis, fibrocystic changes, cystic and papillary apocrine metaplasia. One sentinel lymph node was removed and examined showed no evidence of metastatic disease. She underwent reexcision of positive surgical margin on 02/24/2020 and obtain clear surgical margins. Mrs Fermin denies any history of bony pains except chronic right shoulder rotator cuff and history of right knee replacement. History of smoking, occasional alcohol use. Menarche at age 15, first at age 26, no history of hormone use. Last menstrual period was in December 2018. Mrs Fermin was offered treatment of her triple negative, sentinel node negative breast cancer with Adriamycin Cytoxan dose dense for 4 cycles followed by Taxotere for 12 weeks. She began her first cycle of chemotherapy on April 04, 2020. We have planned to exchange weekly Taxotere with weekly Abraxane due to significant side effects with steroids. She had significant hyperglycemia, insomnia, worsening anxiety, and mood swings. That was with 1 dose that was inadvertently taken in preparation for her first chemotherapy with Adriamycin and Cytoxan. She has completed 4 cycles of dose dense Adriamycin Cytoxan.. She was intolerant to oral steroids (she inadvertently took dexamethasone with her first cycle of AC) in that she had significant hyperglycemia, severe mood swings, insomnia and severe anxiety on the day of and day after she took them. That is why instead of weekly Taxol, she was offered weekly Abraxane, 3 weeks on 1 week off x 4 cycles, Which started on May 30, 2020. She completed 2 weekly doses from 05/30 to 06/06/2020. She was delayed on 06/13/2020 due to performance status and her mother in law's /. She resumed treatment on 06/20/2020 tolerated adjuvant chemotherapy with Abraxane well And completed on September 28, 2020 Followed by postlumpectomy radiation therapy to her right breast from October 16, 2020 through November 15, 2020 Patient with history of chronic right shoulder pain, x-ray of right shoulder was done on September 12, 2020 which shows no acute right shoulder finding. Follow-up mammogram done on January 25, 2021 showed heterogeneous fibroglandular density tissue in the left breast along with numerous calcification throughout the left breast. Amorphous clustered calcifications in the central left breast and additional scattered and clustered punctate calcifications have increased in conspicuity since December 20, 2019, follow-up mammogram with spot magnification view recommended in 6-month Follow-up mammogram done on January 30, 2021 showed numerous calcification throughout the left breast. Amorphous clustered calcification in the central left breast additional scattered and clustered punctate calcification has increased conspicuously since December 20, 2019 these are nonspecific but probably benign follow-up mammogram in 6 months is recommended Came for follow-up, denies any specific complaints, no fever chills, no nausea or vomiting, no diarrhea or constipation, no melena or hematochezia, no hemoptysis or hematemesis, no left breast mass or nipple discharge, overall feeling well except chronic arthritis pain Medications: ALPRAZolam 1 (1 mg) Tablet Oral t.i.d. PRN, Claritin 1 Tablet (of 10 mg) Oral at bedtime, Cymbalta 1 (30 mg) Capsule Delayed Release Particles Oral daily, Lidocaine-Prilocaine 1 (2.5-2.5 %) Cream Topical daily PRN, LORazepam 0.5 - 1 Tablet (of 1 mg) Oral t.i.d. PRN, Methocarbamol 1 - 2 Tablet (of 750 mg) Oral t.i.d. PRN, Prochlorperazine Maleate 1 Tablet (of 10 mg) Oral q 4 hours PRN, Xarelto 1 Tablet (of 15 mg) Oral b.i.d. Allergies: Latex and Penicillins. Review of Systems: Review of Systems is not available for this patient. Vital Signs: Performed on Jun 12, 2021 13:13 Height - 72.00 in Weight - 259.6 lbs (HIGH) BSA - 2.38 sq.m BMI - 35.21 (HIGH) Temperature - 98.3 F (LOW) Pulse - 101 /min (HIGH) Respiration - 18 /min BP - 140/86 mm(hg) O2 Sat - 98 % Pain - 7 Fatigue - 10 Performance Status: 0 - Fully active, able to carry on all predisease activities without restrictions. (ECOG) Physical Examination: Respiratory - Lungs are clear to auscultation, Cardiovascular - Regular rate and rhythm of heart, Gastrointestinal - Soft, bowel sounds present, Extremities - No visible edema or rash. Lab/Imaging: Test performed on Dec 19, 2020 00:00 Manual Diff Cancelled via OM: Cancelled in Connected System Impression: Invasive ductal carcinoma status post right breast wide excisional lumpectomy done on 02/09/2019 final pathology report showed invasive ductal carcinoma 5.5 x 4.5 x 3.5 cm, focally extends to the inked posterior margin, extensive ductal carcinoma in situ with focal apocrine features, high nuclear grade. Followed by reexcision of often involved margin on 02/24/2020 with clear margins pT3 and 1 sentinel lymph node was examined showed no evidence of metastatic disease pNo stage IIB, ER/AL/HER-2/cristobal negative with high Ki-67 e.g. 38%. chronic right shoulder pain due to rotator cuff discussed with Mrs Fermin her disease status. She has locally advanced disease e.g. T3 lesion, status post wide excision of right breast lumpectomy/partial mastectomy with clear surgical margins and 1 sentinel lymph node was examined showed no evidence of metastatic disease, clinical stage IIB. Breast cancer prognostic profiling showed triple negative disease e.g. ER/AL/HER-2/cristobal negative. Being triple negative and locally advanced disease, Mrs Zander echeverriais a candidate for adjuvant chemotherapy. As per NCCN guidelines, dense Adriamycin Cytoxan e.g. every 2 weeks ???4 with Neulasta support to prevent chemotherapy-induced neutropenia-Followed by weekly Taxol ???12, followed by postlumpectomy radiation therapy was the initial treatment plan. As discussed previously she had significant hyperglycemia, anxiety, insomnia and palpitations with an inadvertently taken steroid premed prior to her chemotherapy on cycle 1 day 1. It was felt that she wouold not tolerate the steroids required for the Taxol and we did pursue obtaining Abraxane for her. She has now completed 4 cycles of Adriamycin Cytoxan. She has experienced expected side effects but overall has tolerated it well. She began her taxane portion of her treatment plan on 05/30/2020. She is only been able to complete 2 consecutive weeks her cycle. She most likely change her cycles to 2 out of every 3 weeks for total of 12 treatments per She has had trouble with performance status even with 2 consecutive weeks. The week off has dramatically improved performance status and Completed adjuvant therapy on October 06, 2020, followed by postlumpectomy radiation therapy to right breast from October 16, 2020 till November 15, 2020. Follow-up mammogram done and January 2021 shows BI-RADS 3, probably benign and follow-up mammogram in 6 months were recommended which is scheduled for July 2021 Plan: Discussed with patient regarding her labs white blood count 5.8 hemoglobin 13.7 hematocrit 43 platelets 260,000 CMP within normal limits and follow-up mammogram done in January 2021 which showed BI-RADS 3 Clinically, patient doing well with no signs symptom suggestive of recurrence of disease, her follow-up lab work-up is within normal range and a follow-up mammogram done in January 2021 showed some calcifications left breast, BI-RADS 3 and follow-up mammogram in 6 months is recommended, patient is scheduled for next mammogram in July 2021, will follow and otherwise she will return to clinic in 6 months with CMP unless follow-up mammogram shows any abnormality then we will see her earlier Signed By: Andrei Landeros M.D. <<Signature on File>>
== END 2021-06-12 10:02 | disposition home or self-care (01) ==
PROVIDERS: PCP Family Medicine; Visit Provider Internal Medicine Hematology & Oncology
DX: Z08 Encounter for follow-up examination after completed treatment for malignant neoplasm (principal); Z85.3 Personal history of malignant neoplasm of breast; M25.511 Pain in right shoulder; G89.29 Other chronic pain; Z90.11 Acquired absence of right breast and nipple; Z79.899 Other long term (current) drug therapy; Z92.21 Personal history of antineoplastic chemotherapy; Z92.3 Personal history of irradiation
CPT/HCPCS: 36415; 36591; 80053; 85025; 99214

== ENCOUNTER → 2021-07-06 08:11 | Outpatient (BNVA) | payer MEDICAID, SELFPAY | PROVIDERS: PCP Family Medicine; Visit Provider Anesthesiology | DX: G89.29 Other chronic pain (principal); M54.5 Low back pain; M54.2 Cervicalgia; M25.511 Pain in right shoulder; Z79.891 Long term (current) use of opiate analgesic; Z87.891 Personal history of nicotine dependence | CPT/HCPCS: 99214 ==

== ENCOUNTER 2021-07-30 08:55 | Outpatient (CLI) | payer MEDICAID, SELFPAY ==
--- NOTE | 2021-07-30 08:59 | MM_ITS ---
WS: [id number] BILATERAL DIGITAL DIAGNOSTIC MAMMOGRAM MAMMOGRAPHY WITH CAD CLINICAL INFORMATION: 6 MO F/U LT BREAST CALCIFICATIONS;RT BREAST LUMP COMPARISON: January 30, 2021 and January 07, 2020 TECHNIQUE: Bilateral CC, MLO, and ML views. FINDINGS: The breasts are composed of heterogeneous fibroglandular density, which can limit the detection of sm all underlying mass lesions. Previously described amorphous calcifications in the central left breast are stable. Again some of th manuelito represent benign milk of calcium layering on the MLO view. Additional scattered and clustered punctate calcifications throughout the left breast appear stable s greg January 30, 2021. No mammographic normality in the area of palpable marker right breast. Ultrasound right breast is pen ding. Punctate calcifications upper outer right breast stable. ULTRASOUND BREAST RIGHT TECHNIQUE: Ultrasound right breast focused area of concern. CLINICAL INFORMATION: 6 MO F/U LT BREAST CALCIFICATIONS;RT BREAST LUMP COMPARISON: None. FINDINGS: Ultrasound right breast at the 12:00 position. Attention to the area of concern near the scar. No shan dence of cystic or solid lesion. Normal underlying parenchymal tissue. No suspicious findings. MM/[place] [id number] IMPRESSION: BI-RADS: 2-Benign FOLLOW UP: 1 Year Follow-up Recommend return to annual screening mammography.
--- NOTE | 2021-07-30 09:27 | US_ITS ---
WS: [id number] BILATERAL DIGITAL DIAGNOSTIC MAMMOGRAM MAMMOGRAPHY WITH CAD CLINICAL INFORMATION: 6 MO F/U LT BREAST CALCIFICATIONS;RT BREAST LUMP COMPARISON: January 30, 2021 and January 07, 2020 TECHNIQUE: Bilateral CC, MLO, and ML views. FINDINGS: The breasts are composed of heterogeneous fibroglandular density, which can limit the detection of sm all underlying mass lesions. Previously described amorphous calcifications in the central left breast are stable. Again some of th manuelito represent benign milk of calcium layering on the MLO view. Additional scattered and clustered punctate calcifications throughout the left breast appear stable s greg January 30, 2021. No mammographic normality in the area of palpable marker right breast. Ultrasound right breast is pen ding. Punctate calcifications upper outer right breast stable. ULTRASOUND BREAST RIGHT TECHNIQUE: Ultrasound right breast focused area of concern. CLINICAL INFORMATION: 6 MO F/U LT BREAST CALCIFICATIONS;RT BREAST LUMP COMPARISON: None. FINDINGS: Ultrasound right breast at the 12:00 position. Attention to the area of concern near the scar. No shan dence of cystic or solid lesion. Normal underlying parenchymal tissue. No suspicious findings. US/US breast RT limited* [id number] IMPRESSION: BI-RADS: 2-Benign FOLLOW UP: 1 Year Follow-up Recommend return to annual screening mammography.
== END 2021-07-30 08:56 | disposition home or self-care (01) ==
LOC: RADSHAW 08:58
PROVIDERS: PCP Family Medicine; Visit Provider Internal Medicine Hematology & Oncology
DX: Z85.3 Personal history of malignant neoplasm of breast (principal); R92.1 Mammographic calcification found on diagnostic imaging of breast
CPT/HCPCS: 76642; 77066; 96523

== ENCOUNTER → 2021-09-11 07:51 | Outpatient (BNVA) | payer MEDICAID, SELFPAY | PROVIDERS: PCP Family Medicine; Visit Provider Anesthesiology | DX: G89.29 Other chronic pain (principal); M54.50 Low back pain, unspecified; M54.2 Cervicalgia; Z79.891 Long term (current) use of opiate analgesic | CPT/HCPCS: 99214 ==

== ENCOUNTER 2021-09-14 06:30 | Outpatient (CLI) | payer MEDICAID, SELFPAY | END 2021-09-14 06:31 | disposition home or self-care (01) | LOC: ONCMED 06:30 | PROVIDERS: PCP Family Medicine; Visit Provider Internal Medicine Medical Oncology | DX: Z45.2 Encounter for adjustment and management of vascular access device (principal) | CPT/HCPCS: 96523 ==

== ENCOUNTER 2021-10-05 10:36 | Outpatient (CLI) | payer MEDICAID, SELFPAY | END 2021-10-05 10:37 | disposition home or self-care (01) | LOC: ONCMED 10:37 | PROVIDERS: PCP Family Medicine; Visit Provider Internal Medicine Hematology & Oncology | DX: Z45.2 Encounter for adjustment and management of vascular access device (principal) | CPT/HCPCS: 96523 ==

== ENCOUNTER 2021-11-05 15:10 | Outpatient (CLI) | payer MEDICAID, SELFPAY ==
[2021-11-05 15:44] LABS: Basophils # 0.1 10^3/uL (0.0-0.1); Basophils % 0.7 %; Eosinophils # 0.1 10^3/uL (0.0-0.8); Hematocrit 48.6 % (37.0-47.0); Hemoglobin 15.9 g/dL (11.5-15.3); Lymphocytes # 1.9 10^3/uL (0.8-4.8); Lymphocytes % 20.8 %; Mean Corpuscular HGB Conc 32.7 g/dL (30.0-36.0); Mean Corpuscular Hemoglobin 28.8 pg (28.0-34.0); Mean Corpuscular Volume 87.9 fl (81-99); Mean Platelet Volume 9.3 fL (7.4-10.4); Monocytes # 0.5 10^3/uL (0.2-0.9); Monocytes % 5.8 %; Neutrophils # 6.45 10^3/uL (1.8-7.7); Neutrophils % 71.3 %; Nucleated Red Blood Cells % 0 %; Platelet Count 342 10^3/cmm (130-400); Red Blood Count 5.53 10^6/uL (4.1-5.3); Red Cell Distribution Width 12.7 % (12.1-15.1)
[2021-11-05] MEDS: sodium chloride 0.9% 1,000 ML 999 ML IV (15:45)
[2021-11-05 16:09] LABS: Alanine Aminotransferase 15 U/L (0-33); Albumin Level 4.5 g/dL (3.5-5.2); Alkaline Phosphatase 116 IU/L (35-105); Anion Gap 19.2 (5-19); Aspartate Amino Transferase 14 U/L (0-32); Blood Urea Nitrogen 16 mg/dL (6-20); Calcium 9.1 mg/dL (8.5-10.5); Carbon Dioxide 22 mmol/L (22-29); Chloride 100 mmol/L (98-107); Globulin 3.3 g/dL (1.3-4.6); Glomerular Filtration Rate 86.9 mL/min (90-130); Glucose 93 mg/dL (65-115); Osmolality Calculated 285 mOsm/kg (285-295); Potassium 4.2 mmol/L (3.5-5.1); Sodium 137 mmol/L (136-145); Total Bilirubin 0.6 mg/dL (0.15-1.2); Total Protein 7.8 g/dL (6.6-8.7)
== END 2021-11-05 15:11 | disposition home or self-care (01) ==
LOC: ONCMED 15:14
PROVIDERS: Internal Medicine Hematology & Oncology; PCP Family Medicine; Visit Provider Family Medicine
DX: Z08 Encounter for follow-up examination after completed treatment for malignant neoplasm (principal); Z85.3 Personal history of malignant neoplasm of breast; M25.561 Pain in right knee; F41.1 Generalized anxiety disorder; F32.9 Major depressive disorder, single episode, unspecified; R03.0 Elevated blood-pressure reading, without diagnosis of hypertension; M54.2 Cervicalgia; M54.9 Dorsalgia, unspecified; Z02.9 Encounter for administrative examinations, unspecified; Z79.891 Long term (current) use of opiate analgesic; M25.511 Pain in right shoulder; G89.29 Other chronic pain; Z96.651 Presence of right artificial knee joint
CPT/HCPCS: 80053; 85025; 96360; J7030

== ENCOUNTER → 2021-11-06 09:00 | Outpatient (BNVA) | payer MEDICAID, SELFPAY | PROVIDERS: PCP Family Medicine; Visit Provider Anesthesiology | DX: G89.29 Other chronic pain (principal); M54.50 Low back pain, unspecified; M54.2 Cervicalgia; M25.561 Pain in right knee; Z96.651 Presence of right artificial knee joint; M25.562 Pain in left knee; M25.511 Pain in right shoulder; M25.512 Pain in left shoulder; Z79.891 Long term (current) use of opiate analgesic | CPT/HCPCS: 99214 ==

== ENCOUNTER 2021-11-19 10:05 | Outpatient (CLI) | payer MEDICAID, SELFPAY ==
[2021-11-19] MEDS: gadobenate dimeglumine 20 mL vial IV (11:26)
--- NOTE | 2021-11-19 13:45 | MR_ITS ---
WS: [id number] MRI BRAIN WITH AND WITHOUT CONTRAST HISTORY: HX OF CANCER;DIZZINESS;INTRACTABLE N/V COMPARISON: None available. TECHNIQUE: Multiplanar imaging performed through the brain with MultiHance 20 ml's IV. No acute infarcts are seen. Ibanez-white matter differentiation is well preserved. There are a few scat tered T2 and FLAIR signal hyperintensities within the white matter which are too small to characteriz e and appropriate for the patient's age. No susceptibility artifacts or prior lacunar infarcts. Ventricles and extra-axial spaces are normal. Clivus and pituitary gland are normal. Visualized posterior fossa and brainstem are also normal. No enhancing masses. Venous angioma in the anterior LEFT [place] radiata. No enhancing masses or soft tissue tumors are identified. Dural venous sinuses are normal. Paranasal sinuses: Well aerated with no significant disease. Mastoid air cells: Normal. Calvarium and scalp: Normal. MR/MR head wo/w con [id number] IMPRESSION: 1. No acute infarct. 2. No enhancing masses. No evidence for metastatic disease to the brain.
== END 2021-11-19 10:06 | disposition home or self-care (01) ==
PROVIDERS: PCP Family Medicine; Visit Provider Internal Medicine Hematology & Oncology
DX: C49.21 Malignant neoplasm of connective and soft tissue of right lower limb, including hip (principal)
CPT/HCPCS: 70553; 96523; A9577